=== PATIENT | male | born 1950 | race Caucasian/White ===

== ENCOUNTER 2019-01-23 11:08 | Inpatient (IN) | payer MEDICARE ==
[2019-01-23] MEDS ORDERED: NS 0.9% 1000 ML** 1,000 ML IV ONE (11:10)
--- NOTE | 2019-01-23 11:15 | ED ---
Neurological HPI - HPI Summary HPI Summary: Patient seen by Dr. Glaser at 1109. This patient is a 68 year old M brought in by ambulance to ED with a chief complaint of possible stroke since about 1600 last night. During onset, he got up to use the restroom and had difficulty getting around which was unusual. The patient rates the pain 0/10 in severity. Symptoms aggravated by nothing. Symptoms alleviated by nothing. 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 PMHx of TIA according to CT but had no residual neurological deficits. 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 - Allergy/Home Medications Allergies/Adverse Reactions: Allergies Allergy/AdvReac Type Severity Reaction Status Date / Time heparin Allergy See Comment Verified 01/23/19 12:28 Home Medications: Home Medications Losartan Potassium 25 mg PO DAILY 01/23/19 [History Confirmed 01/23/19] Metformin HCl 1,000 mg PO BID 01/23/19 [History Confirmed 01/23/19] Phendimetrazine Tartrate 2 tab PO QAM 01/23/19 [History Confirmed 01/23/19] PMH/Surg Hx/FS Hx/Imm Hx Endocrine/Hematology History: Reports: Hx Diabetes - TYPE 2 - ON ORAL MEDS QID Cardiovascular History: Reports: Hx Coronary Artery Disease - quadruple bypass - 2004, Hx Valvular Heart Disease, Other Cardiovascular Problems/Disorders - Aortic valve replacement 2010 Denies: Hx Hypertension, Hx Pacemaker/ICD History: Reports: Hx Kidney Infection, Hx Kidney Stones - MANY THROUGH YEARS , Other Problems/Disorders - Kidney failure (not specific if acute or chronic ) Denies: Hx Renal Disease Sensory History: Reports: Hx Contacts or Glasses - GLASSES Denies: Hx Hearing Aid Opthamlomology History: Reports: Hx Contacts or Glasses - GLASSES Psychiatric History: Denies: Hx Panic Disorder - Surgical History Surgery Procedure, Year, and Place: 2004 QUADRUPLE CARDIAC BYPASS, [facility]. 2010 AORTIC VALVE REPLACEMENT, [facility]. 09/2012 PREVIOUS STENT - CARDIAC. 2010 COLONOSCOPY, [facility] [place]. 2013 CYSTOSCOPY RIGHT URETER STENT REMOVAL, URETEROSCOPY, LITHOTRIPSY, STENT INSERTION, [facility] [place] Hx Anesthesia Reactions: No - Immunization History Date of Tetanus Vaccine: 2010 Date of Influenza Vaccine: Fall 2011 Infectious Disease History: Reports: Hx Hepatitis - HEP. 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 on the R All Other Systems Reviewed And Are Negative: Yes Physical Exam - Summary Physical Exam Summary: Appearance: Well appearing, no pain distress Skin: warm, dry, reflects adequate perfusion Head/face: normal Eyes: EOMI, ZAN ENT: normal Neck: supple, non-tender Respiratory: CTA, breath sounds present Cardiovascular: irregularly irregular heartbeat, pulses symmetrical Abdomen: non-tender, soft Musculoskeletal: motor 4/5 rt side Neuro: A&Ox3 GCS: 15 NIH: 4 Triage Information Reviewed: Yes Vital Signs On Initial Exam: Initial Vitals Temp Pulse Resp BP Pulse Ox 97.8 F 68 16 125/86 98 01/23/19 11:10 01/23/19 11:10 01/23/19 11:10 01/23/19 11:10 01/23/19 11:10 Vital Signs Reviewed: Yes Diagnostics - Laboratory Result Diagrams: 01/23/19 11:57 01/23/19 11:57 Lab Statement: Any lab studies that have been ordered have been reviewed, and results considered in the medical decision making process. - Radiology CXR Radiology Interpretation Completed By: Radiologist Summary of Radiographic Findings: No evidence for acute intrathoracic disease. Dr. Glaser has reviewed this radiology report. 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 No CT evidence for acute ischemia or intracranial hemorrhage. Mild involutional change and stigmata of chronic small vessel ischemic disease. Dr. Glaser has reviewed this radiology report. Head CTA CT Interpretation Completed By: Radiologist Summary of CT Findings: No evidence for central intracranial arterial occlusion or stenosis. Dr. Glaser has reviewed this radiology report. - EKG 1117 Cardiac Rate: Other Rate - atrial flutter at 72 BPM EKG Rhythm: Atrial Flutter NIH Scale - NIH Scale Level of Consciousness: Alert/Keenly Responsive Ask Patient the Month and His/Her Age: Both Correct Ask Pt to Open/Close Eyes and Upper Cutter Out/Release Non-Paretic Hand: Both Correctly Best Gaze (Only Horizontal Eye Movement): Normal Visual Field Testing: No Visual Loss Facial Paresis-Pt to Smile & Close Eyes or Grimace Symmetry: Partial Paralysis Motor Function - Right Arm: Drifts LT 10 seconds Motor Function - Left Arm: No Drift-Holds 10 Seconds Motor Function - Right Leg: Drifts LT 10 seconds Motor Function - Left Leg: No Drift-Holds 10 Seconds Limb Ataxia-Must be out of Proportion to Weakness Present: Absent Sensory (Use Pinprick to Test Arms/Legs/Trunk/Face): Normal Best Language (Describe Picture, Name Items): Some Loss Dysarthria (Read Several Words): Normal Extinction and Inattention: No Abnormality Total Score: 5 Re-Evaluation - Re-Evaluation First Eval Re-Evaluation Time: 13:46 Comment: Discussed results and plan for admission with the patient. Also discussed consult with Dr. Joseph. Patient understands and agrees with this plan. Course/Dx - Course Assessment/Plan: Patient seen by Dr. Glaser at 1109. This patient is a 68 year old M brought in by ambulance to ED with a chief complaint of possible stroke since about 1600 last night. Blood work/UA obtained. In the ED course, the patient was given fluids. EKG reveals atrial flutter at [address] reveals multiple old infarcts involving the LEFT middle cerebral artery and bilateral cerebellar artery distributions. No CT evidence for acute ischemia or intracranial hemorrhage. Mild involutional change and stigmata of chronic small vessel ischemic disease. CXR reveals no evidence for acute intrathoracic disease. Head CTA reveals no evidence for central intracranial arterial occlusion or stenosis. Consulted Dr. Joseph about the patient's case and she will come see the patient in the ED. Consulted Dr. Varma at 1357 about the patient's case and he accepts the patient for admission. This patient will be admitted with dx of CVA. Patient understands and agrees with this plan. - Differential Dx Differential Diagnoses Neuro: Positive: Cerebrovascular Accident, Intracranial Bleed, Transient Ischemic Attack - Diagnoses Provider Diagnoses: CVA (cerebral vascular accident) - Physician Notifications Discussed Care Of Patient With: Amalia Joseph Time Discussed With Above Provider: 13:42 Instructed by Provider To: Other - Consulted Dr. Joseph about the patient's case and she will come see the patient in the ED. Consulted Dr. Varma at 1357 about the patient's case and he accepts the patient for admission. - Critical Care Time Critical Care Time: 30-74 min Discharge - Sign-Out/Discharge Documenting (check all that apply): Patient Departure - admit Patient Received Moderate/Deep Sedation with Procedure: No - Discharge Plan Condition: Stable Disposition: ADMITTED TO [facility] Referrals: Sergey Tamez MD [Primary Care Provider] - - Billing Disposition and Condition Condition: STABLE Disposition: Admitted to [facility] - Attestation Statements Document Initiated by Renatae: Yes Documenting Scribe: Jeremy Angeles Provider For Whom Nayely is Documenting (Include Credential): Bradley Glaser MD Scribe Attestation: IJeremy, scribed for Bradley Glaser MD on 01/23/19 at 1522. Scribe Documentation Reviewed: Yes Provider Attestation: The documentation as recorded by the Jeremy mistry accurately reflects the service I personally performed and the decisions made by me, Bradley Glaser MD Status of Scribe Document: Viewed
--- OUTSIDE RECORDS SUMMARY | 2019-01-23 11:24 | XMS REPORT | Continuity of Care Document ---
:1950 External Reference #:[id number] Author Name Kerrie Liang Care Team Providers Name Role Phone Sergey Tamez MD Primary Care Physician Unavailable Payers Date Identification Numbers Payment Provider Subscriber Policy Number: [id number] Medicare Luis E Freeman PayID: [id number] [facility] [address] [place] [address] Advance Directives Description No Information Available Problems Date Description Provider Status Onset: 11/12/2018 Mild cognitive disorder Levi Ellis MD Active Onset: 11/12/2018 Abnormal gait Levi Ellis MD Active Onset: 11/12/2018 Essential tremor Levi Ellis MD Active Onset: 01/05/2019 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 Family History Description No Information Available Social History Type Date Description Comments Sex Unknown ETOH Use Occasionally consumes alcohol Tobacco Use Start: Unknown Patient has never smoked Smoking Status Reviewed: 01/05/19 Patient has never smoked Allergies, Adverse Reactions, Alerts Date Description Reaction Status Severity Comments 11/12/2018 Heparin Active Medications Medication Date Status Form Strength Qnty SIG Indications Ordering Provider Memantine HCL 01/05/ Active Tablets 5mg 70tabs 1 by G31.84 Levi Rose mouth in Rhonda, am for 1 MD week then 1 twice a day for 1 week then 1 in am and 2 in pm at bedtime for 1 week then 2 twice daily Glyburide / Active Tablets 2.5mg 3 by Unknown 0000 mouth every day Metformin HCL / Active Tablets 500mg 1 by Unknown 0000 mouth 4x a day Cozaar 0000/ Active Tablets 25mg 1 by Unknown 0000 mouth every day Phendimetrazine / Active Tablets 35mg one tab Unknown Tartrate 0000 4x a day Senior Tabs 0000/ Active Tablets 1 tab a Unknown 0000 day Magnesium 00/ Active Tablets 400mg 1 by Unknown 0000 mouth every day Zinc 00/ Active Tablets 50mg 0nce Unknown 0000 daily Vitamin B-12 / Active Tablets 3000mcg 1 by Unknown Natural 0000 mouth every day Vitamin C / Active Tablets 1000mg 1 by Unknown 0000 mouth every day CBD / Active Once Or Unknown 0000 Twice A Day 1000MG / Hx Capsules 500-400mg- 1 by Unknown 0000 - Unit mouth 11/11/ once a 2018 day Immunizations Description No Information Available Vital Signs Date Vital Result Comment 01/05/2019 10:58am Height 71 inches 5'11" Weight 177.00 lb Heart Rate 76 /min BP Systolic 130 mmHg BP Diastolic 78 mmHg BMI (Body Mass Index) 24.7 kg/m2 11/12/2018 3:40pm Height 71 inches 5'11" Weight 180.00 lb Heart Rate 80 /min BP Systolic 140 mmHg BP Diastolic 92 mmHg BMI (Body Mass Index) 25.1 kg/m2 Results Test Date Facility Test Result H/L Range Note CBC With 09/16/2010 [facility] White Blood 6.5 CUMM 4.8-10.8 Electronic Diff [address] [place] [address] [phone] Red Cell Count 4.32 CUMM Low 4.6-6.2 Hemoglobin 12.2 g/dL Low 14.0-18.0 Hematocrit 37 % Low 42-52 Mean Corpuscular Volume 84 um3 80-94 Mean Corpuscular Hemoglob 28 pg 27-31 Mean Corpuscular HGB Cone 34 g/dL 32-36 Redcell Distribution WDTH 14 % 10.5-15 Platelet Count 219 CUMM 150-450 Mean Platelet Volume 7.0 um3 Low 7.4-10.4 Gran % 73.8 % 38-83 Lymph % 17.5 % Low 25-47 Mononuclear % 5.5 % 1-9 Eosinophil % 2.6 % 0-6 Basophil % 0.6 % 0-2 Abs Lymphs 1.1 1.0-4.8 Abs Mononuclear 0.4 0-0.8 Absolute Neutrophil Count 4.8 1.5-7.7 Abs Eosinophils 0.2 0-0.6 Abs Basophils 0 0-0.2 1 Protime 09/16/2010 [facility] Inr 2.25 High 0.82-1.[address] [place] [address] [phone] Protime 27.7 SEC High 10.2-14.8 3 Heparin Induced 09/11/2010 [facility] Heparin PF4 45 % Abnormal <20 Platelet AB [address] [place] [address] [phone] Heparin Inhibition 100 % () Heparin PF4 Interpretation Positive Negative Heparin PF4 Comment . () 4 Delilah (Antinuclear 09/10/2010 [facility] Antinuclear AB NEGATIVE Negative Antibodies) [address] [place], [place] [id number] [phone] Reviewed By (SEE NOTE) 5 Activated 09/10/2010 [facility] Act Protein C Indeterminate > or=2.[address] [place] [address] Ratio [phone] Act Protein C Resist Interp . () 6 Laboratory test 09/10/2010 [facility] Anti Thrombin 74 % Abnormal 80-[address] [place] [address] [phone] Lupus 09/10/2010 [facility] Prothrombin 11.1 Abnormal 8.3- 10.8 Anticoagulant AB [address] [place] [address] [phone] Inr 1.2 0.9-1.2 PT Mix 1:1 SEE BELOW s () 8 Aptt 26 s 21-33 Aptt Mix 1:1 SEE BELOW s () 9 Platelet Neutralization Proced SEE BELOW () 10 DRVVT Screen Ratio 1.2 ratio Abnormal <1.2 DRVVT Mix Ratio 1.1 ratio <1.2 Thrombin Time (Bovine) 18 s 16-25 Reptilase Time SEE BELOW s 16-22 11 Interpretation . () 12 Reviewed By Jeaneth Sheth <SEE NOTE> () 13 Factor 5 Leiden 09/10/2010 [facility] Factor 5 Leiden Mut . ( ) [address] [place] [address] [phone] Factor 5 Leiden Mut Result Negative Negative 15 Factor 5 Leiden Mut Interp . () 16 Reviewed By Yashira Tello MD () 17 Laboratory test 09/10/2010 [facility] Homocysteine 10 mcmol/L () [address] [place] [address] [phone] Cardiolipin 09/10/2010 [facility] Cardiolipin Igg AB 14.2 GPL () 19 Igg,Igm,Iga AB [address] [place] [address] [phone] Cardiolipin Igm AB <4.0 MPL () 20 Cardiolipin Iga AB <4.0 APL () 21 Laboratory test 09/10/2010 [facility] Protein C 59 % Abnormal 70-150 [address] [place] [address] [phone] Protein S Activity 71 % 65-160 23 Factor II (Prothrombin) 09/10/2010 [facility] [place] [address] Mutation . () [address] [place] [address] [phone] Prothrombin 56878 Mutation Negative Negative 25 [place] [address] Mutation Interp . () 26 Reviewed By Yashira Tello MD () 27 MRSA/Vre Screen 09/10/2010 [facility] MRSA/Vre Culture [facility] [address] [place] [address] [phone] 1 Lymphopenia % 2 Recommended INR for Patients on Oral Anticoagulants Prophylaxis 2.0 - 3.0 Treatment of thrombosis 2.0 - 3.0 Prevention of embolism 2.0 - 3.0 Prevention of embolism from prosthetic heart valves 2.5 - 3.5 3 DIAGNOSIS,TREATMENT,AND THERAPY MUST BE BASED ON THE INR VALUE ALONE. 4 Patient serum has reactivity for antibodies to complexes of heparinoid and platelet factor 4 (H/PF4 complexes) that is inhibited by high dose heparin. 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 Clinical correlation is required. Note: As many as 25-50% of surgical patients and 10-20% of medical patients recently exposed to heparin may have evidence of antibodies to H/PF4 complexes, but only a minority (1-5%) of such heparin exposed patients have evidence of clinical HIT (HIT type II). However, the presence of such antibodies may increase the risk of clin- ical HIT, but the magnitude of risk for various patient populations has not been clearly established. Test Performed by: [facility] [address] [place] [address] Signals Collection Technician: Harshal Prajapati III, M.D. 5 REVIEWED BY BENNY HOLGUIN MD 6 Unable to accurately assess presence or absence of resistance to Activated Protein C (APC). If clinically indicated, consider DNA-based testing for the factor V "Leiden" mutation (R506Q). Test Performed by: [facility] [address] [place] [address] Signals Collection Technician: Harshal Prajapati III, M.D. 7 Note: Decreased antithrombin activity could reflect acquired conditions [e.g., liver disease, disseminated intravascular coagulation (DIC/ICF), effect of recent heparin therapy, L-asparginase chemotherapy, etc.] or a congenital deficiency state. Suggest clinical correlation. Test Performed by: [facility] [address] [place] [address] Signals Collection Technician: Harshal Prajapati III, M.D. 8 Reflexed test not required 9 Reflexed test not required 10 Reflexed test not required 11 Reflexed test not required Test Performed by: [facility] [address] [place] [address] Signals Collection Technician: Harshal Prajapati III, M.D. 12 IMPRESSION: 1) No evidence of a lupus anticoagulant (LAC). 2) Borderline positive IgG antiphospholipid antibody study (see comments). 3) Minimally prolonged prothrombin time (PT) (see comments). COMMENTS: Minimally prolonged prothrombin time (PT) suggestive of coagulation factor deficiency. Unfortunately there was insufficient sample available to further investigate this possibility. We recommend further investigation of the prolonged PT only if the patient is not currently receiving oral anticoagulant therapy. Mixing study of prolonged dilute Jose viper venom time (DRVVT screen and mix ratios) provides no evidence of significant inhibition and therefore no evidence of lupus-like anticoagulant (LAC) by this methodology. In a 1:1 mixing study with normal plasma, the Staclot APTT is marginally prolonged, providing equivocal evidence of inhibition; however, addition of hexagonal phase phospholipid does not significantly shorten the clotting time (Staclot delta) providing no clear evidence of a lupus anticoagulant (LAC) in the context of available data. Separately performed serological assays for anticardiolipin antibodies demonstrate a negative IgM anticardiolipin antibody study and a borderline positive IgG anticardiolipin antibody study. The borderline positive IgG anticardiolipin antibody study result is not a diagnostic criterion for the antiphospholipid antibody syndrome. 13 Deborah Ramos M.D. Test Performed by: [facility] [address] [place] [address] Signals Collection Technician: Harshal Prajapati III, M.D. 14 This test is a direct mutation analysis of leukocyte genomic DNA by the Invader Assay system ([employer], [place], [place], [place]). 15 Analyte Specific Reagent This test was developed and its performance characteristics determined by [facility], [facility]. This test has not been cleared or approved by the U.S. Food and Drug Administration. 16 This individual DOES NOT have the factor V Leiden (R506Q) mutation. Although the factor V Leiden mutation is absent, the individual may have other genetic and environmental risk factors for thrombosis. Consider additional testing for hemostatic disorders associated with increased thrombosis risk, if indicated. Consider genetic consultation and counseling of potentially affected family members regarding laboratory testing. 17 Test Performed by: [facility] [address] [place] [address] Signals Collection Technician: Harshal Prajapati III, M.D. 18 -- REFERENCE VALUE -- <=13 (Fasting) Test Performed by: [facility] [address] [place] [address] Signals Collection Technician: Harshal Prajapati III, M.D. 19 Interpretation: Borderline (10.0-14.9 GPL) 20 Interpretation: Negative (<10.0 MPL) Test Performed by: [facility] [address] [place] [address] Signals Collection Technician: Harshal Prajapati III, M.D. 21 Interpretation: Negative (<10.0 APL) Test Performed by: [facility] [address] [place] [address] Signals Collection Technician: Harshal Prajapati III, M.D. 22 Note: Decreased Protein C activity could reflect acquired conditions (e.g., liver disease, Vitamin K deficiency, oral anticoagulation, excess heparin in specimen, etc.) or a congenital deficiency state. Suggest clinical correlation. Test Performed by: [facility] [address] [place] [address] Signals Collection Technician: Harshal Prajapati III, M.D. 23 Heparin levels greater than 1 U/ml, inhibitors of the APTT test system (especially lupus anticoagulant), or inhibitors of bovine factor V (such antibodies that may arise in patients treated with certain bovine topical thrombin preparations) may produce a falsely normal Protein S Activity result. Suggest clinical correlation and if indicated consider repeat assay of Protein S Activity and Antigen in the absence of anticoagulation therapy. Test Performed by: [facility] [address] [place] [address] Signals Collection Technician: Harshal Prajapati III, M.D. 24 This test is a direct mutation analysis of leukocyte genomic DNA by the Invader Assay system ([employer], [place], [employer], [place]). 25 Analyte Specific Reagent This test was developed and its performance characteristics determined by [facility], [facility]. This test has not been cleared or approved by the U.S. Food and Drug Administration. 26 This individual DOES NOT have the Prothrombin [id number] mutation. Although the Prothrombin [id number] mutation is absent, the individual may have other genetic and environmental risk factors for thrombosis. Consider additional testing for hemostatic disorders associated with increased thrombosis risk, if indicated. Consider genetic consultation and counseling of potentially affected family members regarding laboratory testing. 27 Test Performed by: [facility] [address] [place] [address] Signals Collection Technician: Harshal Prajapati III, M.D. 28 NO MRSA ISOLATED Procedures Date Code Description Status 01/24/2015 25213 Repair Hernia Inguinal > 5Yrs, Reducible Completed Encounters Type Date Location Provider Dx Diagnosis Office Visit 11/12/2018 [facility] Levi Ellis, G31.84 Mild cognitive 3:15p impairment, so stated R26.89 Other abnormalities of gait and mobility G25.2 Other specified forms of tremor Office Visit 10/25/2012 1:42p [facility] [place], 592.0 [facility] 591 Hydronephrosis 584.9 Acute Kidney Failure, Unspecified 599.0 UTI Urinary Tract Infection Site Not Spec Plan of Treatment Future Appointment(s):02/23/2019 2:00 pm - Levi Ellis MD at [facility]01/05/2019 - Levi Ellis MDG31.84 Mild cognitive impairment, so statedNew Medication:Memantine HCL 5 mg - 1 by mouth in am for 1 week then 1 twice a day for 1 week then 1 in am and 2 inpm at bedtime for 1 week then 2 twice dailyComments:Discussed that his cognitive decline in large part is likely secondary to his significant small vessel ischemic disease with some possible lacunes as well identified on mri. Discussed that it is impossible to prove that there is no component of Alzheimers and that there are some medications such as namenda that can have a mild slowing of progression of Alzheimers but would not affect problems from avascular dementia. They want to pursue- would use namenda rather than aricept since namenda has fewer side effects. He also did not tolerate aricept before.His balance problems are likely a combination of his diabetic peripheral neuropathy and cerebellar atrophy.Follow up:6 OYCLOJ21.42 Type 2 diabetes mellitus with diabetic vofvdcohcwakcjH88.02 Abnormal brain scan
[2019-01-23 12:07] LABS: Hematocrit 39 % (36-46); Hemoglobin 12.7 g/dL (14.0-18.0); Mean Corpuscular HGB Conc 33 g/dL (31-36); Mean Corpuscular Hemoglobin 29 pg (27-31); Mean Corpuscular Volume 89 fL (80-94); Red Blood Count 4.39 10^6 /uL (4.18-5.48); Red Cell Distribution Width 14 % (10.5-15); White Blood Count 4.6 10^3/uL (3.5-10.8)
[2019-01-23 12:14] LABS: Activated Partial Thrombo Time 22.7 seconds (26.0-36.3); INR 1.08 (0.77-1.02)
[2019-01-23 12:25] LABS: Troponin I 0.02 ng/mL (<0.04)
[2019-01-23 12:26] LABS: ALT 15 U/L (7-52); Albumin 2.7 g/dL (3.2-5.2); Albumin/Globulin Ratio 1.2 (1-3); Alkaline Phosphatase 52 U/L (34-104); BUN/Creatinine Ratio 17.6 (8-20); Blood Urea Nitrogen 19 mg/dL (6-24); CO2 Carbon Dioxide 19 mmol/L (22-32); Calcium 6.5 mg/dL (8.6-10.3); Cholesterol 93 mg/dL; EGFR African American 81.8 (>60); EGFR Non-African American 67.6 (>60); Globulin 2.2 g/dL (2-4); Glucose 115 mg/dL (70-100); HDL Cholesterol 17.5 mg/dL; LDL Cholesterol 56 mg/dL; Sodium 139 mmol/L (135-145); Total Protein 4.9 g/dL (6.4-8.9); Triglycerides 100 mg/dL
[2019-01-23] MEDS ORDERED: Iodixanol* (CONTRAST) 320 MG/ML 100 ML SDV IV ONE (12:43)
[2019-01-23 12:46] LABS: ABS Basophils 0 10^3/ul (0-0.2); ABS Eosinophils 0 10^3/ul (0-0.6); ABS Lymphocytes 0.7 10^3/ul (1.0-4.8); ABS Monocytes 0.2 10^3/ul (0-0.8); ABS Neutrophils 3.5 10^3/ul (1.5-7.7); ABS Nucleated RBC 0 10^3/ul; Eosinophil % 0.9 %; Lymphocyte % 16.3 %; Nucleated Red Blood Cells % 0.1; Platelet Count 92 10^3/uL (150-450)
[2019-01-23 13:13] LABS: Chloride 116 mmol/L (101-111)
[2019-01-23 14:00] LABS: Anion Gap 4 mmol/L (2-11)
[2019-01-23] MEDS ORDERED: Aspirin 81 mg CHEW TAB* 81 MG TAB.CHEW PO ONE (14:14)
[2019-01-23 16:14] LABS: BUN/Creatinine Ratio 15.3 (8-20); Calcium 8.3 mg/dL (8.6-10.3); EGFR African American 62.2 (>60); EGFR Non-African American 51.4 (>60); Magnesium 1.8 mg/dL (1.9-2.7); Potassium 4.9 mmol/L (3.5-5.0)
[2019-01-23] MEDS ORDERED: Magnesium Sulfate 2 GM IV* 2 GM/50 ML BAG IVPB ONE (16:36)
[2019-01-23] MEDS ORDERED: Acetaminophen TAB* 325 MG PO PRN (16:37)
[2019-01-23] MEDS ORDERED: Dextrose 50% Syringe 50 ML* 25 GM/50 ML SYRINGE IV PUSH PRN (16:56)
[2019-01-23 17:39] LABS: Potassium Redraw 4.5 mmol/L (3.5-5.0)
--- NOTE | 2019-01-23 20:41 | CONS ---
CC: Dr. Levi Ellis; Dr. Sergey Tamez; Payal Wilkins, ANNALISA, [facility] * CONSULTATION REPORT: DATE OF CONSULT: 01/23/19 REQUESTING PHYSICIAN: Dr. Glaser. REASON FOR CONSULT: Stroke. HISTORY OF PRESENT ILLNESS: Mr. Luis E Freeman is a 68-year-old gentleman with history of diabetes, coronary artery disease, bovine aortic valve replacement, previous heparin-induced thrombosis, and previous strokes on MRI who now presents to the emergency room with acute onset of neurologic symptoms. At baseline, he has some difficulties with balance and is noted to have peripheral neuropathy as well as previous cerebellar strokes. He was out raking his lawn around 4 p.m. yesterday and he noticed a decline in balance. He went inside and sat down. He had noted some pain near his ear earlier in the day and he questioned whether it could have been an inner ear problem. He went to bed about 11:30 pm. This morning, he woke up at about 9:30 and found it hard to stand. His voice had changed. His facial expression was changed on the right hand side. His right hand was slow in movement. They came into the emergency room for further evaluation. TPA was not provided. He was noted to be outside the TPA window in the emergency room, and his NIH Stroke Scale was noted to be 5. He did have a CTA of the brain and neck looking for a large- vessel occlusion, which was negative. Neurology consult was called in the setting of admission to [facility]. Of note, new atrial flutter was noted in the emergency room. The patient was unfamiliar with this term/ diagnosis. PAST MEDICAL HISTORY: Includes diabetes with peripheral neuropathy. In his chart is listed hypertension and hyperlipidemia, both diagnoses of which he denies, however he is on Cozaar. He has a history of intention tremor in the left greater than right upper extremity. He had concerns regarding cognition and was noted to have vascular changes on MRI with both cerebellar strokes as well as subcortical periventricular changes. He had a MoCA in October, which was within normal limits. Past medical history also includes hepatitis C, narcolepsy diagnosed at age 18, coronary artery disease with bypass in 2004 and stent in 2011, aortic valve replacement with bovine heart valve replaced in 2010 , history of kidney stones with infection and urethral stent in 2013. MEDICATIONS: In the emergency room, he was given aspirin. At home, he is on CBD oil. He also takes Cozaar 25 mg p.o. daily, magnesium 400 mg p.o. daily, memantine which has been tapered up to 5 mg p.o. b.i.d. He is on metformin 500 mg and he thought he was taking it t.i.d. He is on glyburide, which he believes is 5 mg p.o. daily, vitamin B12 at 3000 mcg p.o. daily; which he does not take regularly, vitamin C 1000 mg a day, zinc 50 mg a day, vitamin D 1000 International Units p.o. daily, Senior Tabs 1 tablet daily, phendimetrazine 35 mg p.o. 4 times daily. ALLERGIES: Include HEPARIN which caused heparin-induced thrombosis, and he indicates he was admitted to the ICU for this with multiple clots. FAMILY HISTORY: Includes mother who at 89 of old age, father who had a myocardial infarction at age 60, one sister who of sepsis, and one sister had 3 myocardial infarctions. SOCIAL HISTORY: He smokes occasional marijuana. He does not smoke tobacco. He denies any illicit drug use, he has about 2 drinks of alcohol a week. REVIEW OF SYSTEMS: There has been no change in vision. There has been change in speech as noted above. There has been no chest pain, chest pressure, palpitation, shortness of breath, new numbness and weakness includes weakness on the right hand side, but no numbness or tingling. There has been no change in bowel or bladder habits. He denies any recent joint pain. There has been no recent rashes or high fevers. He has had drenching night sweats for a long time. He denies any new joint pain. He denies any psychiatric history. PHYSICAL EXAM: On examination, his most recent blood pressure was 116/72, his pulse was 74, respiratory rate was initially 20; repeated 11, his saturation was 98%. He had a regular cardiac rhythm. A flutter, however, was noted on monitor. No murmur was detected. No carotid bruit. His lungs were clear to auscultation. There was no evidence of peripheral edema. He did have high arches and hammertoes. He was awake, alert, oriented to his location, could name and repeat without difficulty. His pupils were equal and responsive to light. His fundi were flat. He had full extraocular movements with no nystagmus , full fontanez to confrontation. His facial expression was asymmetric with a right central VII, which improved when going from head of bed at about 30 degrees to flat. His facial sensation was symmetric. His palate was upgoing. Tongue was midline. Sternocleidomastoid and trapezius were 5/5 in strength. There was a right slight pronator drift. Left upper extremity and lower extremity were strong. In the right upper extremity, deltoid was weak at 4+/5, biceps 4+/5, triceps 4-/5, intrinsic hand muscles 4-/5. Right lower extremity, hip flexion was weak at 4+/5, knee flexion and extension were good strength, but dorsiflexion 4+/5. He had slight dysmetria in the right arm and leg consistent with weakness. There was no asymmetry to pinprick, cold, or light touch in his arms and legs and there was no evidence of neglect. His vibration sensation was absent at the large toes, diminished at the ankles or absent, and decreased at the knees by 20 seconds. He denied any length-dependent changes and sharp. His reflexes were 2+ in the upper extremities, 1+ at the knees, absent at the ankles. Toes were equivocal on the right and downgoing on the left. Gait was not tested given his clinical status and his clinical improvement when lying flat. DIAGNOSTIC STUDIES/LAB DATA: Includes CTA of the brain and neck, which did not show evidence of large-vessel occlusion or stenosis. There was comment about C6 -C7 degenerative spondylosis with some neural foraminal changes and osteoarthritis. Please see report for further details in this regard. CT of the brain showed multiple old strokes in the bilateral cerebellar distribution, left MCA distribution, and atrophy, as well as other small-vessel ischemic diseases. This film was reviewed directly and I attempted to compare this to the MRI that was performed recently, which looks similar. His chest x-ray did not show any evidence of acute disease. His CBC showed a slightly low hemoglobin at 12.7, platelet count was low at 92. His PTT was low at 22.7, INR was 1.08. His metabolic panel revealed elevated creatinine at 1.37, which is a repeat. The initial was 1.08. His GFR remained within normal limits. Glucose was elevated initially at 115; repeated at 201, calcium was low at 6.5; repeated at 8.3, magnesium is low at 1.8. Total protein and albumin were both low. Triglycerides 100, cholesterol 93, LDL 56, HDL 17.5. IMPRESSION AND PLAN: Mr. Freeman is a 68-year-old left-handed gentleman with history of previous strokes on MRI Brain, diabetes, coronary artery disease, bovine aortic valve replacement, heparin-induced thrombosis, now with worsening balance in the setting of left face and arm and leg weakness who is outside the TPA window with NIH Stroke Scale of 5 and no large-vessel occlusion. Given some improvement in facial expression and speech with putting head of bed flat, we will keep him flat and I have asked him to remain flat in bed over at least the next 24 hours and further extension depending on symptoms. He could sit to eat, but then needs to get back down. I have started normal saline at 100 mL an hour and I will hold any blood pressure medication, and I would not treat blood pressure unless it is above systolic of 210 and diastolic of 110. I admitted him to telemetry to check an echocardiogram with bubble study. Already, he is noted to have a flutter, and this is a significant risk factor for stroke and most likely he will need anticoagulation. For now, we will hold off on anticoagulation, as I would like to further define stroke and risk/ benefit for anticoagulation. We will get an MRI of the brain tomorrow to further evaluate the extent of stroke and give potentially further info into the likely source. A small-vessel stroke is possible based on presentation and I have suggested starting him on aspirin along with statin. Education was given to Mr. Freeman and his regarding hemorrhagic and ischemic strokes, findings to date, previous workup in the emergency room, further workup planned in hospital and at admission, variable prognosis with strokes, the importance of stabilization over the next 24 to 48 hours, importance of lying flat, and the potential for further therapy. At this point, he will need speech therapy, physical therapy, occupational therapy, and potentially rehab. TIME SPENT: Over 90 minutes were spent in direct patient care. Case was also discussed with hospitalist team. [id number]/[facility] #: [id number] BRAD
[2019-01-23] MEDS: NS 0.9% 1000 ML** 1,000 ML IV SCH (21:29)
[2019-01-23] MEDS: Atorvastatin* 20 MG TAB PO SCH (21:34)
--- NOTE | 2019-01-24 00:55 | HP ---
CC: Dr. Joseph; Dr. Tamez * HISTORY AND PHYSICAL: DATE OF ADMISSION: 01/23/19 PROVIDER: Kristi Cabezas NP. PRIMARY CARE PROVIDER: Dr. Tamez. ATTENDING PROVIDER: Dr. Preston Varma * (DICTATED BY KRISTI CABEZAS NP) CHIEF COMPLAINT: Right-sided weakness, slurred speech. HISTORY OF PRESENT ILLNESS: Mr. Freeman is a 68-year-old male with past medical history significant for coronary artery disease; status post 4-vessel bypass in 2003, aortic valve replacement, diabetes, nephrolithiasis, history of DVT, essential tremor, history of hepatitis C, history of heparin-induced thrombosis , history of also previous strokes on MRI as well as some peripheral neuropathy. The patient does have balance disturbances at baseline. The patient reports that at approximately 4 p.m. he was outside raking leaves, he felt off balance, so he went inside to rest. He states that he went to bed at around 11:30. He reports this morning he woke up at approximately 9:30. He found that it was hard to stand. He reports that his voice had changed and his speech was slurred. He had some right facial droop and right-sided weakness, so they presented to the emergency room via EMS for further evaluation. In the emergency room, he had an NIH Stroke Scale of 5. He did have a CT of the brain and neck to look for large-vessel occlusion, which was negative. Neurology was consulted by the emergency room due to his neurological symptoms. While in the emergency room, the patient was monitored on telemetry. He was found to be in new atrial flutter on the monitor. The patient reports no history of atrial flutter in the past. He did have a CT of the brain, which showed multiple old infarcts involving the left middle cerebral artery and bilateral cerebellar artery distributions. There was no CT evidence of acute ischemia or intracranial hemorrhage. Mild involutional changes and stigmata of chronic small-vessel ischemic disease. The patient denies any fever; denies any recent illness; denies any chest pain, edema, cough, hemoptysis, or shortness of breath. No nausea, vomiting, diarrhea , or abdominal pain, hematuria, or dysuria. He does report some weakness on the right side, right facial droop, slurred speech, difficulty with words. He denies any difficulty swallowing. Denies any visual complaints, arthralgias, myalgias, rashes, lesions, or open sores. Denies any psychosis or anxiety. Due to his neurological symptoms and concern for new acute stroke, we were asked to see and evaluate him for admission. He will be admitted under observation for CVA. PAST MEDICAL HISTORY: 1. Aortic valve replacement in 2011. 2. Coronary artery disease, status post 4-vessel bypass in 2003, stent placement in 2016. 3. History of diabetes. 4. Nephrolithiasis. 5. DVT. 6. Essential tremor. 7. Hepatitis C. 8. Peripheral neuropathy. 9. Hypertension. PAST SURGICAL HISTORY: 1. Four-vessel bypass surgery in 2010. 2. Aortic valve replacement in 2009. 3. Stent placement in 2016. 4. Inguinal hernia repair. MEDICATIONS: Home medications include: 1. Losartan 25 mg p.o. daily. 2. Glyburide 2.5 mg p.o. t.i.d. 3. Phendimetrazine tartrate 2 tabs p.o. q.a.m. 4. Metformin 1000 mg p.o. b.i.d. 5. Memantine 5 mg b.i.d. 6. Vitamin D. 7. Multivitamin. 8. Magnesium oxide 400 mg. 9. Vitamin B12 at 3000 mcg. 10. Vitamin C. FAMILY HISTORY: Mother at the age of 89 of old age. Father with myocardial infarction at age 60. One sister from sepsis. One sister had 3 MIs. SOCIAL HISTORY: The patient reports that he does not use any tobacco. He does report alcohol approximately 2 times per week. He does report smoking marijuana twice weekly. He is retired. He is . He lives with his . Surrogate decision maker in the event he is unable to make his own decisions is his . He is a full code. REVIEW OF SYSTEMS: A review of 14 systems was completed. All pertinent positives were mentioned in the HPI; all others were negative. PHYSICAL EXAMINATION GENERAL: At this time, Mr. Freeman is resting on the stretcher in the emergency room. He is alert and oriented x3. His speech is slightly slurred. He is in no acute distress. He does have mild right facial droop. HEENT: Head is atraumatic, normocephalic. Eyes: EOMs are intact. Sclerae anicteric and not pale. Oral mucosa appeared to be moist. NECK: Supple. LUNGS: Clear to auscultation bilaterally. No wheezes, rales, or rhonchi. CARDIAC: S1, S2 is irregular rate and atrial flutter on the monitor. AFib in the 70s to 80s. ABDOMEN: Soft and nontender. Bowel sounds are present x4. MUSCULOSKELETAL: He does have some weakness noted to his left leg. His right handgrip is slightly weaker. He does have some weakness noted to the right leg. EXTREMITIES: Pedal pulses are +2 bilaterally. There is no clubbing, cyanosis, or edema noted. SKIN: Intact. NEUROLOGIC: He is awake, alert, and oriented x3. Speech is slightly slurred. He does have mild right facial droop. Tongue is midline. Right handgrip is weak. Right leg with mild weakness. Rezbbh-zm-degs on the left is intact. Finger-to- nose on the right is intact with mild deviation. He does have mild pronator drift noted to the right arm and mild drifting with the right leg. LABORATORY DATA AND DIAGNOSTIC STUDIES: WBCs were 4.6, RBCs 4.39, hemoglobin 12.7, hematocrit was 39, platelet count was 92. INR was 1.08, APTT was 22.7. Sodium 137, potassium 4.9, chloride 108, carbon dioxide was 26, anion gap was 3 , BUN was 21, creatinine 1.37, glucose was 201, calcium was 8.3, magnesium 1.8. TSH was 1.97. Cholesterol: Triglycerides were 100, cholesterol was 93, LDL was 56, HDL was 17.5. He had a chest x-ray on 01/23/19. Radiologist's impression: No evidence of acute intrathoracic disease. He had an electrocardiogram, which showed atrial fibrillation to atrial flutter at a rate of 72. He had a CT of the brain. Multiple old infarcts involving the left middle cerebral artery and bilateral cerebellar artery distributions. No CT evidence of acute ischemia or intracranial hemorrhage. Mild involutional changes and stigmata of chronic small-vessel ischemic disease. He had a CT of the head. No evidence of central intracranial arterial occlusion or stenosis. ASSESSMENT AND PLAN: Mr. Freeman is a 68-year-old male with a past medical history significant for diabetes, coronary artery disease, essential tremor, history of deep venous thrombosis, hepatitis C, aortic valve replacement, and heparin-induced thrombosis who presented to the emergency room with complaints of right-sided weakness and difficulty with his speech. He will be admitted under observation for: 1. Cerebrovascular accident. The patient did have a CT of the brain, which showed chronic infarcts, no acute infarct, no hemorrhage. He will have an MRI of the brain without contrast. He will get an echocardiogram with bubble study. He will be placed on low-dose statin therapy as his LDL is 56 and neurology has recommended low-dose statin therapy. I will place him on telemetry and continue with aspirin 81 mg p.o. daily. He will need to remain flat x24 hours. He can sit to eat and then must be placed back in the flat position. He will need PT/OT. He will have speech therapy, swallow evaluation , and most likely need rehab at discharge. At this time, we will continue with neuro checks q.2 hours x4 and then q.4 hours. Neurologist has been consulted and seen the patient in the emergency. Further recommendations pending his MRI tomorrow. 2. Diabetes. I will hold his oral metformin and glipizide. I will place him on lispro sliding scale with Accu-Cheks a.c. 3. Hypertension. At this time, I am going to hold his losartan as his blood pressure was low and I will allow for permissive hypertension as the patient's did improve with lying flat. 4. History of coronary artery disease. We will continue him on aspirin as previously prescribed. 5. New-onset atrial flutter. The patient is currently rate controlled at this time. He has a CHADS-VASc score of 6, giving him a 9.7% per year in 90,000 patients at 13.6% risk of stroke, transient ischemic attack, or systemic embolism. He is considered at [id number] risk and should be, otherwise, anticoagulated. Neurology has recommended holding anticoagulation until after the MRI. We will consider anticoagulation after the MRI results tomorrow. The patient is currently rate controlled. I will not put him on a rate agent at this time. The patient also does have a history of heparin-induced thrombosis, so we will need to use caution in picking an agent for anticoagulation for him. We will get an echocardiogram tomorrow with bubble study to look at cardiac function. 6. Deep venous thrombosis prophylaxis. The patient will be placed on sequential compression devices. Chemical deep venous thrombosis prophylaxis will be held at this time due to the patient's history of heparin-induced thrombosis. 7. Fluid, electrolytes, nutrition. The patient can have a heart-healthy, decaf okay diet. 8. Code status. He is a full code. TIME SPENT: Time spent on this admission was 70 minutes, greater than half that time was spent at the bedside reviewing events leading thus far to his hospitalization, performing my physical exam, and implementing my plan of care. I have discussed this with my attending, Dr. Preston Varma; he is in agreement with my plan. KRISTI CABEZAS, ADMINISTRATIVE COORDINATOR [id number]/[facility] #: [id number] BRAD
[2019-01-24 01:44] LABS: Urine Appearance Clear; Urine Bacteria Absent (Absent); Urine Bilirubin Negative (Negative); Urine Blood Negative (Negative); Urine Color Yellow; Urine Glucose 1+(50 mg/dL) (Negative); Urine Ketones Trace (Negative); Urine Nitrite Negative (Negative); Urine Protein 1+(30 mg/dL) (Negative); Urine Red Blood Cell Absent (Absent); Urine Specific Gravity 1.039 (1.010-1.030); Urine Squamous Epithelial Cell Present (Absent); Urine Urobilinogen Negative (Negative); Urine White Blood Cell Absent (Absent)
[2019-01-24 06:41] LABS: ABS Basophils 0 10^3/ul (0-0.2); ABS Eosinophils 0.1 10^3/ul (0-0.6); ABS Lymphocytes 1.6 10^3/ul (1.0-4.8); ABS Monocytes 0.4 10^3/ul (0-0.8); ABS Neutrophils 4.2 10^3/ul (1.5-7.7); ABS Nucleated RBC 0 10^3/ul; Eosinophil % 1.6 %; Hematocrit 42 % (36-46); Hemoglobin 13.8 g/dL (14.0-18.0); Lymphocyte % 24.7 %; Mean Corpuscular HGB Conc 33 g/dL (31-36); Mean Corpuscular Hemoglobin 29 pg (27-31); Mean Corpuscular Volume 88 fL (80-94); Mean Platelet Volume 8.5 fL (7.4-10.4); Nucleated Red Blood Cells % 0; Platelet Count 114 10^3/uL (150-450); Red Blood Count 4.74 10^6 /uL (4.18-5.48); Red Cell Distribution Width 14 % (10.5-15); White Blood Count 6.3 10^3/uL (3.5-10.8)
[2019-01-24 06:55] LABS: BUN/Creatinine Ratio 15.6 (8-20); Calcium 8.2 mg/dL (8.6-10.3); EGFR African American 63.2 (>60); EGFR Non-African American 52.2 (>60); Magnesium 2.1 mg/dL (1.9-2.7); Potassium 4.2 mmol/L (3.5-5.0)
[2019-01-24] MEDS: Insulin LISPRO* 1 UNITS UNIT SUBCUT SCH ×3 (08:42→17:39)
[2019-01-24] MEDS: NS 0.9% 1000 ML** 1,000 ML IV SCH (09:28)
[2019-01-24] MEDS: Aspirin EC TAB* 81 MG TAB.EC PO SCH (09:28)
--- NOTE | 2019-01-24 15:39 | ECHO ---
Patient: JADYN RUIZ [facility] Rec#: [id number] : 1950 Date: 01/24/2019 Age: 68y Height: 183 cm / 72.0 in Weight: 81 kg / 178.5 lbs Sex: M BSA: 2.03 Room#: [facility] Admit Date#: 01/23/2019 Type: Inpatient Referring: Lynette Cabezas Reading: Juan Choi MD Seat Scooper Machine: Amalia Unger RDCS,RDMS CC: Sergey Tamez MD Transthoracic Echocardiogram Indication: CVA BP: 112/64 HR: 74 Rhythm: A-Flutter Findings History: CAD, CABG, AVR, DM, DVT, CVA, HTN, HLD Technical Comments: The study quality is good. Left Ventricle: The left ventricular chamber size is normal. Mild to moderate concentric left ventricular hypertrophy is observed. Global left ventricular wall motion and contractility are within normal limits. Left ventricular systolic function is at the lower limits of normal. The estimated ejection fraction is 50-55%. Ventricular septal wall motion has a post-operative appearance. The assessment of diastolic function is non-diagnostic. Left Atrium: The left atrium is severely dilated. Right Ventricle: The right ventricular chamber size and systolic function are within normal limits. Right Atrium: The right atrium is mild to moderately dilated. The bubble study is negative. A patent foramen ovale is not demonstrated with color Doppler and agitated contrast. Aortic Valve: There is no evidence of aortic regurgitation. The mean gradient of the aortic valve is 9 mmHg. The aortic valve area, by peak velocities, is calculated at 1.3 cm2. A bovine bio-prosthetic aortic valve is present. With normal function The prosthetic aortic valve leaflets are normal. Mitral Valve: Moderate mitral annular calcification present. The mitral valve leaflets are mildly thickened. There is mild mitral regurgitation. There is no evidence of mitral stenosis. Tricuspid Valve: The tricuspid valve leaflets are normal. There is trace tricuspid regurgitation. No pulmonary hypertension is noted. Pulmonic Valve: The pulmonic valve appears normal. There is a trace pulmonic regurgitation. Pericardium: There is no significant pericardial effusion. Aorta: The aortic root appears normal. There is no dilatation of the aortic arch. Pulmonary Artery: The main pulmonary artery appears normal. Venous: The inferior vena cava appears normal in size. There is a greater than 50% respiratory change in the inferior vena cava dimension. Contrast: Intravenous agitated saline contrast was used to assess intracardiac shunting. Images 1 and 2. Summary: There are no significant changes when compared to the previous study done on 09/10/10 Conclusions Mild to moderate concentric left ventricular hypertrophy is observed. Left ventricular systolic function is at the lower limits of normal. The estimated ejection fraction is 50-55%. Ventricular septal wall motion has a post-operative appearance. The right ventricular chamber size and systolic function are within normal limits. A patent foramen ovale is not demonstrated with color Doppler and agitated contrast. A bovine bio-prosthetic aortic valve is present. With normal function Moderate mitral annular calcification present. There is mild mitral regurgitation. There is no evidence of mitral stenosis. There is trace tricuspid regurgitation. There is no significant pericardial effusion. There are no significant changes when compared to the previous study done on 09/10/10 Measurements Name Value Normal Range RVIDd (AP) 2D 3.6 cm (0.9 - 2.6) RAd ISD 4CH 5.6 cm (3.4 - 4.9) RA (A4C)W 4.2 cm (2.9 - 4.6) IVSd (2D) 1.6 cm (0.6 - 1) LVPWd (2D) 1.3 cm (0.6 - 1) LVIDd (2D) 3.9 cm (3.6 - 5.4) LVIDs (2D) 3.1 cm - LV FS (2D) 22 % (25 - 45) Aortic Annulus 2.3 cm (1.4 - 2.6) Ao root diameter (2D) 3 cm (2.1 - 3.5) Ascending Ao 2.8 cm (2.1 - 3.4) Aortic arch 3.1 cm (1.8 - 3.4) LA dimension (AP) 2D 6.1 cm (2.3 - 3.8) LAd ISD 4CH 6.3 cm (2.9 - 5.3) LA ISD 4CH W 5.2 cm (2.5 - 4.5) Name Value Normal Range LA ESV BP (A/L) index 57 ml/m2 - Name Value Normal Range MV E-wave Vmax 1.4 m/sec - MV deceleration time 129 msec - LV lateral e' Vmax 0.12 m/sec - LV E:e' lateral ratio 12 ratio - Name Value Normal Range AV Vmax 2.6 m/sec - AV VTI 51 cm - AV peak gradient 27 mmHg - AV mean gradient 9 mmHg - LVOT diameter 2.1 cm - LVOT Vmax 1 m/sec - LVOT VTI 18 cm - LVOT peak gradient 4 mmHg - LVOT mean gradient 2 mmHg - DOI (VTI) 0.4 ratio - GLENDY (continuity Vmax) 1.3 cm2 - GLENDY (continuity VTI) 1.2 cm2 - Name Value Normal Range MV Vmax 1.3 m/sec - MV VTI 30 cm - MV peak gradient 7 mmHg - MV mean gradient 3 mmHg - MV PHT 82 msec - MVA (PHT) 2.7 cm2 - MVA (continuity VTI) 2.1 cm2 - Name Value Normal Range TR Vmax 2.5 m/sec - TR peak gradient 25 mmHg - RAP 8 mmHg - RVSP 33 mmHg - IVC diameter 2.1 cm - Name Value Normal Range PV Vmax 0.6 m/sec - PV peak gradient 1.4 mmHg -
--- NOTE | 2019-01-24 16:20 | PN ---
Subjective Date of Service: 01/24/19 Length of Stay: 1 Days Neurology is following for stroke. Interval History: Brief history, Mr. Luis E Freeman is a 68-year-old man who has evidence of memory problems who was recently evaluated by Dr. Ellis. It was thought that he has vascular dementia. The patient presented on Thursday morning with symptoms of right sided weakness. He had dizziness that started Thursday evening. He was deemed not a candidate for IV tPA. He did not have any LVO. He had a CT head without contrast on 01/23/19 that showed multiple old infarct in bilateral cerebellar and left MCA vascular territory. he had a CTA that showed no large vessel intra or extra cranial stenosis or occlusion. He had an MRI brain without contrast that showed small acute infarct in the left nataliia with moderate chronic small vessel disease and multiple old lacunar stroke. A TTE was done and showed severely dilated left atrium and EF of 50-55%. No PFO was seen. S: Today, Mrs. Freeman stated that his facial droop on the right has improved. He still has significant right sided weakness involving the face, arm and leg. He continues to have slurred speech. His symptoms do fluctuate and he seems to be more symptomatic with upright posture. Review of Systems: Denied CP, SOB, or palpitations. Objective Active Medications: Acetaminophen (Tylenol Tab*) 650 mg PO Q4H PRN PRN Reason: FEVER/PAIN Aspirin (Aspirin Ec Tab*) 81 mg PO DAILY [facility] Last Admin: 01/24/19 09:28 Dose: 81 mg Atorvastatin Calcium (Lipitor*) 20 mg PO 2100 [facility] Last Admin: 01/23/19 21:34 Dose: 20 mg Dextrose (D50w Syringe 50 Ml*) 12.5 gm IV PUSH .FOR FS < 60 - SS PRN PRN Reason: FS < 60 Sodium Chloride (Ns 0.9% 1000 Ml) 1,000 mls @ 100 mls/hr IV PER RATE [facility] Last Admin: 01/24/19 09:28 Dose: 100 mls/hr Insulin Human Lispro (Humalog*) 0 units SUBCUT [facility]; Protocol Last Admin: 01/24/19 13:45 Dose: Not Given Vital Signs 01/24/19 01/24/19 08:23 11:52 Temperature 97.4 F 97.8 F Pulse Rate 76 75 Respiratory 16 16 Rate Blood Pressure 123/78 126/80 (mmHg) O2 Sat by Pulse 97 99 Oximetry Intake and Output Last 24 Hours 01/22/19 01/23/19 01/24/19 01/25/19 06:59 06:59 06:59 06:59 Intake Total 1000 1124 Output Total 650 Balance 1000 474 Weight 187 lb 3.2 oz 187 lb 3.2 oz Intake: IV Fluids 1000 950 IVPB 54 NS (0.9%) 54 Oral 0 120 Output: Urine 650 Oxygen Devices in Use Now: Nasal Cannula Neurology Exam: General: Well nourished, well developed, and in no acute distress HEENT: Normocephelic/atraumatic, sclera anicteric, mucous membranes moist Neck: Supple Chest: Clear to auscultation bilaterally Cardiovascular: Regular rate and rhythm without murmurs, rubs, gallops Abdomen: Soft, non-tender/non-distended Extremities: No clubbing, cyanosis, or edema Neurological Findings: Awake, alert, and oriented to person, place, and time. Speech: fluent without dysarthria, repetition intact Cranial Nerve: PERRL, EOM intact, VFF, no nystagmus, face symmetric bilaterally , facial sensation intact, hearing intact to finger rub bilaterally, palate elevates symmetrically, tongue midline, SCM and Trapezius s/s. Motor: s/s throughout, proximal and distal extremities x4 tone/bulk normal Sensation: intact to LT/PP bilaterally upper and lower extremities Deep Tendon Reflex: 2+ symmetric in the upper/lower extremities, Babinski - down going Finger to nose, rapid alternating movements intact without tremor, no dysdiadochokinesia Gait: intact with good arm swing and stride Result Diagrams: 01/24/19 06:03 01/24/19 06:03 Additional Lab and Data: LDL: 56 Assessment/Plan 1. Acute left pontine stroke He was outside the window for IV tPA and he has no evidence of LVO. I suspect the stroke is related to cardiac arrhythmia in the setting of new onset atrial flutter. 2. New onset atrial flutter 3. 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 - Keep him flat for the next 24 hours - Allow permissive hypertension with SBP goal of 120<160 mmHg. - Continue low dose atorvastatin since his LDL is < 70. The risk of complications with high intensity statin therapy outweighs the benefit. - Pt will need acute rehabilitation. He prefers to do acute rehabilitation at [facility]. - Discussed and counseled regarding fall precautions on anticoagulation therapy. - Discussed and educated the patient regarding secondary stroke preventions. Anticoagulation therapy will hopefully minimize the risk of new strokes - VTE prophylaxis with Eliquis starting tonann marie Time spent: 35 minutes obtaining history, examining the patient, education and counseling, and discussing the treatment plan as mentioned above.
--- NOTE | 2019-01-24 18:33 | PN ---
Subjective Date of Service: 01/24/19 Interval History: Radiology called results of acute left pontine stroke. Dr Ortiz notified. Discussed case with Dr Ortiz who suspects stroke is related to cardiac arrythmia in the setting of new onset a flutter. Recommending Eliquis and ASA daily. Discussed with hematology who agree with Eliquis given history of HIT. Hematology will see patient tomorrow. Evaluated with at bedside. reports she has seen improvement since his admission. Patient denies cp, palpitations, nausea, vomiting, diarrhea. Continues to have word finding difficulty which has been present for several months. Continues to have right sided weakness. Objective Active Medications: Acetaminophen (Tylenol Tab*) 650 mg PO Q4H PRN PRN Reason: FEVER/PAIN Apixaban (Eliquis*) 5 mg PO BID [facility] Aspirin (Aspirin Ec Tab*) 81 mg PO DAILY [facility] Last Admin: 01/24/19 09:28 Dose: 81 mg Atorvastatin Calcium (Lipitor*) 20 mg PO 2100 [facility] Last Admin: 01/23/19 21:34 Dose: 20 mg Dextrose (D50w Syringe 50 Ml*) 12.5 gm IV PUSH .FOR FS < 60 - SS PRN PRN Reason: FS < 60 Sodium Chloride (Ns 0.9% 1000 Ml) 1,000 mls @ 100 mls/hr IV PER RATE [facility] Last Admin: 01/24/19 09:28 Dose: 100 mls/hr Insulin Human Lispro (Humalog*) 0 units SUBCUT [facility]; Protocol Last Admin: 01/24/19 17:39 Dose: 1 units Vital Signs - 8 hr 01/24/19 01/24/19 11:52 15:27 Temperature 97.8 F 98.0 F Pulse Rate 75 76 Respiratory 16 18 Rate Blood Pressure 126/80 136/81 (mmHg) O2 Sat by Pulse 99 99 Oximetry Oxygen Devices in Use Now: None Appearance: Comfortable, NAD Eyes: No Scleral Icterus, PERRLA Ears/Nose/Mouth/Throat: Clear Oropharnyx, Mucous Membranes Moist Neck: NL Appearance and Movements; NL JVP Respiratory: Symmetrical Chest Expansion and Respiratory Effort, Clear to Auscultation Cardiovascular: NL Sounds; No Murmurs; No JVD, RRR, No Edema Abdominal: NL Sounds; No Tenderness; No Distention Lymphatic: No Cervical Adenopathy Extremities: No Clubbing, Cyanosis Skin: No Rash or Ulcers Neurological: Alert and Oriented x 3, - - Right sided weakness 3/5. Left sided wnl 5/5. Slight right facial droop (improving per ) Nutrition: Taking PO's Result Diagrams: 01/24/19 06:03 01/24/19 06:03 Additional Lab and Data: Laboratory Results - last 24 hr 01/23/19 01/23/19 01/24/19 11:57 17:17 01:25 WBC RBC Hgb Hct MCV MCH MCHC RDW Plt Count MPV Neut % (Auto) Lymph % (Auto) [place] % (Auto) Eos % (Auto) Baso % (Auto) Absolute Neuts (auto) Absolute Lymphs (auto) Absolute Monos (auto) Absolute Eos (auto) Absolute Basos (auto) Absolute Nucleated RBC Nucleated RBC % Hem Pathologist Commnt Sodium Potassium Chloride Carbon Dioxide Anion Gap BUN Creatinine Est GFR ( Amer) Est GFR (Non-Af Amer) BUN/Creatinine Ratio Glucose POC Glucose (mg/dL) Calcium Magnesium TSH 1.97 Urine Color Yellow Urine Appearance Clear Urine pH 5.0 Ur Specific [place] 1.039 H Urine Protein 1+(30 mg/dl) A Urine Ketones Trace A Urine Blood Negative Urine Nitrate Negative Urine Bilirubin Negative Urine Urobilinogen Negative Ur Leukocyte Esterase Negative Urine WBC (Auto) Absent Urine RBC (Auto) Absent Ur Squamous Epith Cells Present A Urine Bacteria Absent Urine Glucose 1+(50 mg/dl) A 01/24/19 01/24/19 01/24/19 06:03 06:03 07:31 WBC 6.3 RBC 4.74 Hgb 13.8 L Hct 42 MCV 88 MCH 29 MCHC 33 RDW 14 Plt Count 114 L MPV 8.5 Neut % (Auto) 66.5 Lymph % (Auto) 24.7 [place] % (Auto) 6.5 Eos % (Auto) 1.6 Baso % (Auto) 0.7 Absolute Neuts (auto) 4.2 Absolute Lymphs (auto) 1.6 Absolute Monos (auto) 0.4 Absolute Eos (auto) 0.1 Absolute Basos (auto) 0 Absolute Nucleated RBC 0 Nucleated RBC % 0 Hem Pathologist Commnt Sodium 139 Potassium 4.2 Chloride 111 Carbon Dioxide 23 Anion Gap 5 BUN 21 Creatinine 1.35 H Est GFR ( Amer) 63.2 Est GFR (Non-Af Amer) 52.2 BUN/Creatinine Ratio 15.6 Glucose 93 POC Glucose (mg/dL) 99 Calcium 8.2 L Magnesium 2.1 TSH Urine Color Urine Appearance Urine pH Ur Specific [place] Urine Protein Urine Ketones Urine Blood Urine Nitrate Urine Bilirubin Urine Urobilinogen Ur Leukocyte Esterase Urine WBC (Auto) Urine RBC (Auto) Ur Squamous Epith Cells Urine Bacteria Urine Glucose 01/24/19 16:59 WBC RBC Hgb Hct MCV MCH MCHC RDW Plt Count MPV Neut % (Auto) Lymph % (Auto) [place] % (Auto) Eos % (Auto) Baso % (Auto) Absolute Neuts (auto) Absolute Lymphs (auto) Absolute Monos (auto) Absolute Eos (auto) Absolute Basos (auto) Absolute Nucleated RBC Nucleated RBC % Hem Pathologist Commnt Sodium Potassium Chloride Carbon Dioxide Anion Gap BUN Creatinine Est GFR ( Amer) Est GFR (Non-Af Amer) BUN/Creatinine Ratio Glucose POC Glucose (mg/dL) 189 H Calcium Magnesium TSH Urine Color Urine Appearance Urine pH Ur Specific [place] Urine Protein Urine Ketones Urine Blood Urine Nitrate Urine Bilirubin Urine Urobilinogen Ur Leukocyte Esterase Urine WBC (Auto) Urine RBC (Auto) Ur Squamous Epith Cells Urine Bacteria Urine Glucose Assess/Plan/Problems-Billing 1. Acute left pontine stroke He was outside the window for IV tPA and he has no evidence of LVO. I suspect the stroke is related to cardiac arrhythmia in the setting of new onset atrial flutter. 2. New onset atrial flutter 3. 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 - Keep him flat for the next 24 hours - Allow permissive hypertension with SBP goal of 120<160 mmHg. - Continue low dose atorvastatin since his LDL is < 70. The risk of complications with high intensity statin therapy outweighs the benefit. - Pt will need acute rehabilitation. He prefers to do acute rehabilitation at [facility]. - Discussed and counseled regarding fall precautions on anticoagulation therapy. - Discussed and educated the patient regarding secondary stroke preventions. Anticoagulation therapy will hopefully minimize the risk of new strokes - VTE prophylaxis with Eliquis starting tonight Time spent: 35 minutes obtaining history, examining the patient, education and counseling, and discussing the treatment plan as mentioned above. - Patient Problems (1) Left pontine stroke Comment: - Right sided weakness involving face, RUE, and RLE. - Started on Eliquis today (01/24) - OT ordered - PT to be ordered when patient can be upright - Needs to continue lying flat for the next 24 hrs - Allow permissive htn goal 120<160 SBP - Cont low dose statin (2) Atrial flutter Comment: - New Atrial Flutter with rate in 70s on tele - Asymptomatic - Started on Eliquis - Will need cardiology referral at discharge (3) Vascular dementia Comment: - Recently diagnosed by Dr Ellis as outpatient (4) CAD (coronary artery disease) Comment: - Cont ASA (5) Diabetes Comment: - Hold home oral medications and continue Lispro sliding scale and routine blood glucose monitoring (6) HTN (hypertension) Comment: - Cont to hold home BP medications to allow permissive HTN (7) DVT prophylaxis Comment: - Started on Eliquis (8) Full code status Status and Disposition: D/C medically stable. Attending: Chanell Sims
[2019-01-24] MEDS: Atorvastatin* 20 MG TAB PO SCH (20:00)
[2019-01-24] MEDS: Apixaban* 5 MG TAB PO SCH (20:00)
[2019-01-25 05:59] LABS: Hematocrit 40 % (36-46); Hemoglobin 13.7 g/dL (14.0-18.0); Mean Corpuscular HGB Conc 34 g/dL (31-36); Mean Corpuscular Hemoglobin 30 pg (27-31); Mean Corpuscular Volume 87 fL (80-94); Mean Platelet Volume 8.5 fL (7.4-10.4); Platelet Count 120 10^3/uL (150-450); Red Blood Count 4.61 10^6 /uL (4.18-5.48); Red Cell Distribution Width 14 % (10.5-15); White Blood Count 6.6 10^3/uL (3.5-10.8)
[2019-01-25 06:13] LABS: BUN/Creatinine Ratio 17.6 (8-20); Calcium 8.2 mg/dL (8.6-10.3); EGFR African American 65.5 (>60); EGFR Non-African American 54.1 (>60)
[2019-01-25] MEDS: NS 0.9% 1000 ML** 1,000 ML IV SCH (08:07)
[2019-01-25] MEDS: Insulin LISPRO* 1 UNITS UNIT SUBCUT SCH ×3 (08:41→17:07)
[2019-01-25] MEDS: Apixaban* 5 MG TAB PO SCH ×2 (08:43→20:34)
[2019-01-25] MEDS: Aspirin EC TAB* 81 MG TAB.EC PO SCH (08:43)
[2019-01-25] MEDS ORDERED: Senna TAB PO PRN (16:37)
--- NOTE | 2019-01-25 16:44 | PN ---
Subjective Date of Service: 01/25/19 Interval History: Assessed this morning while patient was resting in bed. Reports he feels "emotionally bad" as he is frustrated with current situation. Discussed depression after strokes and major life events. Offered support. Offered to chat with Madi Castanon and patient was agreeable. Reports he "physically" feels about the same as yesterday. Continues to have right sided weakness and occasional word finding difficulty. Objective Active Medications: Acetaminophen (Tylenol Tab*) 650 mg PO Q4H PRN PRN Reason: FEVER/PAIN Apixaban (Eliquis*) [address] [facility] Last Admin: 01/25/19 08:43 Dose: 5 mg Aspirin (Aspirin Ec Tab*) [address] [facility] Last Admin: 01/25/19 08:43 Dose: 81 mg Atorvastatin Calcium (Lipitor*) [address] [facility] Last Admin: 01/24/19 20:00 Dose: 20 mg Dextrose (D50w Syringe 50 Ml*) 12.5 gm IV PUSH .FOR FS < 60 - SS PRN PRN Reason: FS < 60 Docusate Sodium (Colace Cap*) [address] [facility] Sodium Chloride (Ns 0.9% 1000 Ml) 1,000 mls @ 100 mls/hr IV PER RATE [facility] Last Admin: 01/25/19 08:07 Dose: 100 mls/hr Insulin Human Lispro (Humalog*) [address] [facility]; Protocol Last Admin: 01/25/19 12:37 Dose: 1 units Senna (Senokot Tab*) 2 tab PO BEDTIME PRN PRN Reason: CONSTIPATION Vital Signs - 8 hr 01/25/19 01/25/19 12:05 15:24 Temperature 98.4 F 98.6 F Pulse Rate 78 77 Respiratory 16 18 Rate Blood Pressure 124/70 126/79 (mmHg) O2 Sat by Pulse 98 99 Oximetry Oxygen Devices in Use Now: None Appearance: Comfortable, NAD Eyes: No Scleral Icterus Ears/Nose/Mouth/Throat: Clear Oropharnyx, Mucous Membranes Moist Neck: NL Appearance and Movements; NL JVP Respiratory: Symmetrical Chest Expansion and Respiratory Effort, Clear to Auscultation Cardiovascular: NL Sounds; No Murmurs; No JVD, RRR, No Edema Abdominal: NL Sounds; No Tenderness; No Distention Lymphatic: No Cervical Adenopathy Extremities: No Clubbing, Cyanosis Skin: No Rash or Ulcers Neurological: Alert and Oriented x 3, NL Sensation, - - Right drift. RUE and RLE 3/5 in strength. LUE and LLE 5/5 in strength Nutrition: Taking PO's Result Diagrams: 01/25/19 05:31 01/25/19 05:31 Additional Lab and Data: Laboratory Results - last 24 hr 01/24/19 01/25/19 01/25/19 16:59 05:31 05:31 WBC 6.6 RBC 4.61 Hgb 13.7 L Hct 40 MCV 87 MCH 30 MCHC 34 RDW 14 Plt Count 120 L MPV 8.5 Sodium 139 Potassium 4.0 Chloride 112 H Carbon Dioxide 21 L Anion Gap 6 BUN 23 Creatinine 1.31 H Est GFR ( Amer) 65.5 Est GFR (Non-Af Amer) 54.1 BUN/Creatinine Ratio 17.6 Glucose 95 POC Glucose (mg/dL) 189 H Calcium 8.2 L 01/25/19 01/25/19 08:05 12:01 WBC RBC Hgb Hct MCV MCH MCHC RDW Plt Count MPV Sodium Potassium Chloride Carbon Dioxide Anion Gap BUN Creatinine Est GFR ( Amer) Est GFR (Non-Af Amer) BUN/Creatinine Ratio Glucose POC Glucose (mg/dL) 97 198 H Calcium Assess/Plan/Problems-Billing 1. Acute left pontine stroke He was outside the window for IV tPA and he has no evidence of LVO. I suspect the stroke is related to cardiac arrhythmia in the setting of new onset atrial flutter. 2. New onset atrial flutter 3. 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 - Keep him flat for the next 24 hours - Allow permissive hypertension with SBP goal of 120<160 mmHg. - Continue low dose atorvastatin since his LDL is < 70. The risk of complications with high intensity statin therapy outweighs the benefit. - Pt will need acute rehabilitation. He prefers to do acute rehabilitation at [facility]. - Discussed and counseled regarding fall precautions on anticoagulation therapy. - Discussed and educated the patient regarding secondary stroke preventions. Anticoagulation therapy will hopefully minimize the risk of new strokes - VTE prophylaxis with Eliquis starting tonight Time spent: 35 minutes obtaining history, examining the patient, education and counseling, and discussing the treatment plan as mentioned above. - Patient Problems (1) Left pontine stroke Comment: - Right sided weakness involving face, RUE, and RLE. - Started on Eliquis today (01/24). Hematology consulting on patient today given hx of HIT, but approved starting Eliquis before initiation. Cont Eliquis and ASA - OT/PT ordered. Called OT and requested they see him today even though he is on bedrest and maybe given him exercises for RUE and patient is frustrated with limitations in RUE. - Needs to continue lying flat per neurology - Allow permissive htn goal 120<160 SBP - Cont low dose statin (2) Atrial flutter Comment: - New Atrial Flutter with rate in 70s on tele - Asymptomatic - Started on Eliquis - Will need cardiology referral at discharge (3) Vascular dementia Comment: - Recently diagnosed by Dr Ellis as outpatient (4) CAD (coronary artery disease) Comment: - Cont ASA (5) Diabetes Comment: - Hold home oral medications and continue Lispro sliding scale and routine blood glucose monitoring (6) HTN (hypertension) Comment: - Cont to hold home BP medications to allow permissive HTN (7) DVT prophylaxis Comment: - Eliquis (8) Full code status Status and Disposition: Inpatient. [facility] referral in place. Attending: Chanell Sims
--- NOTE | 2019-01-25 19:09 | PN ---
Subjective Date of Service: 01/25/19 Length of Stay: 2 Days Neurology is following for the evaluation of stroke. Interval History: The right sided weakness seems to stabilize and no longer fluctuate. He denied any new weakness, headaches, or paresthesia. He is tolerating the anti- thrombotic agents. Review of Systems: Denied CP, SOB, or palpitations. Objective Active Medications: Acetaminophen (Tylenol Tab*) 650 mg PO Q4H PRN PRN Reason: FEVER/PAIN Apixaban (Eliquis*) 5 mg PO BID [facility] Last Admin: 01/25/19 08:43 Dose: 5 mg Aspirin (Aspirin Ec Tab*) 81 mg PO DAILY [facility] Last Admin: 01/25/19 08:43 Dose: 81 mg Atorvastatin Calcium (Lipitor*) 20 mg PO 2100 [facility] Last Admin: 01/24/19 20:00 Dose: 20 mg Dextrose (D50w Syringe 50 Ml*) 12.5 gm IV PUSH .FOR FS < 60 - SS PRN PRN Reason: FS < 60 Docusate Sodium (Colace Cap*) 100 mg PO BID [facility] Insulin Human Lispro (Humalog*) 0 units SUBCUT [facility]; Protocol Last Admin: 01/25/19 17:07 Dose: Not Given Senna (Senokot Tab*) 2 tab PO BEDTIME PRN PRN Reason: CONSTIPATION Vital Signs 01/24/19 01/24/19 01/25/19 19:39 23:42 03:53 Temperature 98.7 F 97.8 F 97.5 F Pulse Rate 77 76 64 Respiratory 16 16 16 Rate Blood Pressure 136/85 119/71 126/69 (mmHg) O2 Sat by Pulse 98 98 99 Oximetry 01/25/19 01/25/19 01/25/19 07:55 12:05 15:24 Temperature 98.0 F 98.4 F 98.6 F Pulse Rate 68 78 77 Respiratory 16 16 18 Rate Blood Pressure 132/78 124/70 126/79 (mmHg) O2 Sat by Pulse 97 98 99 Oximetry Intake and Output Last 24 Hours 01/23/19 01/24/19 01/25/19 01/26/19 06:59 06:59 06:59 06:59 Intake Total 1000 3592 2275 Output Total 1650 535 Balance 1000 1942 1740 Weight 187 lb 3.2 oz 187 lb 3.2 oz Intake: IV Fluids 1000 2998 2035 NS (0.9%) 204 1035 IVPB 54 NS (0.9%) 54 Oral 0 540 240 Output: Urine 1650 535 Other: Date of Last Bowel 01/25/19 Movement Estimated Stool Amount Small # Voids 1 Oxygen Devices in Use Now: None Neurology Exam: General: Well nourished, well developed, and in no acute distress HEENT: Normocephelic/atraumatic, sclera anicteric, mucous membranes moist Neck: Supple Chest: Clear to auscultation bilaterally Cardiovascular: irregular rate and rhythm Extremities: No clubbing, cyanosis, or edema Neurological Findings: Awake, alert, and oriented to person, place, and time. Speech: spastic dysarthria Cranial Nerve: PERRL, EOM intact, right facial droop. Motor: pyramidal long tract weakness graded as 4/5 on the right arm and leg. Sensation: intact to LT/PP bilaterally upper and lower extremities Deep Tendon Reflex: extensor plantar response on the right. He has 1+ reflexes on the left and 2+ on the left Finger to nose, rapid alternating movements intact without tremor, no dysdiadochokinesia Gait: not assessed due to posture related symptoms. Result Diagrams: 01/25/19 05:31 01/25/19 05:31 Additional Lab and Data: Laboratory Results - last 24 hr 01/24/19 01/25/19 01/25/19 16:59 05:31 05:31 WBC 6.6 RBC 4.61 Hgb 13.7 L Hct 40 MCV 87 MCH 30 MCHC 34 RDW 14 Plt Count 120 L MPV 8.5 Sodium 139 Potassium 4.0 Chloride 112 H Carbon Dioxide 21 L Anion Gap 6 BUN 23 Creatinine 1.31 H Est GFR ( Amer) 65.5 Est GFR (Non-Af Amer) 54.1 BUN/Creatinine Ratio 17.6 Glucose 95 POC Glucose (mg/dL) 189 H Calcium 8.2 L 01/25/19 01/25/19 08:05 12:01 WBC RBC Hgb Hct MCV MCH MCHC RDW Plt Count MPV Sodium Potassium Chloride Carbon Dioxide Anion Gap BUN Creatinine Est GFR ( Amer) Est GFR (Non-Af Amer) BUN/Creatinine Ratio Glucose POC Glucose (mg/dL) 97 198 H Calcium Assessment/Plan 1. Acute left pontine stroke 2. New onset atrial flutter 3. Most likely vascular dementia Recommendations: - Tolerating Eliquis 5 mg PO twice daily - Continue aspirin 81 mg daily given his known history of small vessel disease - D/c IV fluids - OOB to chair and plan for rehabilitation tomorrow or . - BP goal at this time: normotensive. NO need to start any anti-hypertensive agents unless his SBP > 180 mmHg - Continue low dose atorvastatin since his LDL is < 70. The risk of complications with high intensity statin therapy outweighs the benefit. - VTE prophylaxis with Eliquis starting tonight He can follow-up with me in 4-6 weeks as an outpatient. We will arrange for an appointment.
[2019-01-25] MEDS: Atorvastatin* 20 MG TAB PO SCH (20:34)
[2019-01-25] MEDS: Docusate CAP* 100 MG PO SCH (20:34)
--- NOTE | 2019-01-26 00:51 | CONS ---
CC: Dr. Sergey Tamez; [facility] * MEDICAL ONCOLOGY/HEMATOLOGY CONSULTATION NOTE: DATE OF CONSULT: 01/25/19 REASON FOR CONSULTATION: Anticoagulation for atrial fibrillation in the setting of a stroke. HISTORY OF PRESENT ILLNESS: Mr. Freeman is a 68-year-old male with a history of diabetes, coronary artery disease, bovine aortic valve replacement, previous heparin-induced thrombocytopenia, and a previous CVA. He presented to the emergency room on 01/23/19 with difficulty in his balance and marked weakness. He also noted issues with slurring of his speech. Symptoms are completely on the right side. He presented to the emergency room where he was evaluated by Neurology. Symptoms were felt to fall outside of the tPA window. CTA of the brain and neck were obtained looking for large vessel occlusion and were negative. He was found to have new onset of atrial fibrillation at the time of admission. At this time, situation has been discussed with our office and he has been placed on Eliquis after that discussion. Relevant past medical history includes admission in August 2010. At that time , he had had an aortic valve replacement, bovine, on 08/04/10, and then presented to the hospital approximately 5 weeks later with right leg swelling. CTA was obtained to rule out PE after a markedly positive D-dimer. CT scan showed bilateral scattered PEs that were acute. He was admitted to the hospital and found to have on lower extremity Dopplers with extensive bilateral lower extremity clot. This was felt to be related to recent surgery on his heart with extensive immobility. CT scan at that time of the chest, abdomen and pelvis did not show any signs of malignancy. Hypercoagulability panel was normal. The patient was started on anticoagulation with Lovenox and then bridged to Coumadin. He was followed by Dr. Morales of Hematology/Oncology through our office. There was an episode of heparin- induced thrombocytopenia with associated thrombosis. Fondaparinux was used, therefore, in place of the Lovenox and the patient was then transitioned to Coumadin. He followed up in the office and was maintained on Coumadin for 6 months. 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 PAST MEDICAL HISTORY: Otherwise significant for peripheral neuropathy, hypertension, hyperlipidemia, hepatitis C, previous history of narcolepsy, coronary artery disease, status post bypass in 2004 with stent in 2012, aortic valve replacement as noted above in 2010, kidney stones with urethral stent. HOME MEDICATIONS: 1. CBD oil. 2. Cozaar. 3. Magnesium. 4. Amantadine. 5. Metformin. 6. Glyburide. 7. Vitamin B12. 8. Vitamin C. 9. Zinc. 10. Vitamin D. 11. Phendimetrazine. ALLERGIES: HEPARIN causing HIT, as discussed above. FAMILY HISTORY: Father with myocardial infarction at 60. Mother at 89. Other family history of cardiac disease. SOCIAL HISTORY: No tobacco. Occasional alcohol. Lives with his . Retired. REVIEW OF SYSTEMS: Negative, except as discussed above. DIAGNOSTIC STUDIES/LAB DATA: Diagnostic studies: As discussed above. CTA of the brain and neck. CT of the brain revealed multiple old CVAs. Laboratory studies: CBC with a platelet count of 92 and a hemoglobin of 12.7. Metabolic profile reveals a slightly elevated creatinine at 1.37, otherwise unremarkable. IMPRESSION: A 68-year-old male with previous strokes and who is status post coronary artery disease, aortic valve replacement, myocardial infarction, heparin induced thrombocytopenia/thrombosis, and now with a new cerebrovascular accident. This new cerebrovascular accident has occurred in the setting of new onset of atrial fibrillation. The question raised for our office is whether it is safe to have him on Eliquis. Certainly, this is a reasonable choice in the setting of new onset atrial fibrillation and should not be altered by the fact that he has had heparin-induced thrombocytopenia in the past. There is clear evidence in the literature, including an article in Blood in 2017, entitled Direct oral anticoagulants for the treatment of HIT: Update of [facility] experience and literature review, with first author Srini. This mentions that not only are direct oral anticoagulant safe to use in patients who had previous HIT, but also are attractive options for the treatment of heparin- induced thrombocytopenia. Review of their experience and the review of the literature mentioned 46 patients treated with rivaroxaban, 12 with apixaban, and 11 with dabigatran. There were essentially no major hemorrhages and no significant thrombosis, occurring only in 1 patient. Therefore, it is safe to place this patient on Eliquis 5 mg b.i.d. for treatment of his atrial fibrillation even in the setting of prior HIT. [id number]/[facility] #: [id number] [facility]
[2019-01-26] MEDS: Insulin LISPRO* 1 UNITS UNIT SUBCUT SCH ×3 (08:01→16:44)
[2019-01-26] MEDS: Docusate CAP* 100 MG PO SCH ×2 (08:15→20:20)
[2019-01-26] MEDS: Apixaban* 5 MG TAB PO SCH ×2 (08:15→20:20)
[2019-01-26] MEDS: Aspirin EC TAB* 81 MG TAB.EC PO SCH (08:15)
[2019-01-26 08:57] LABS: BUN/Creatinine Ratio 16.5 (8-20); Calcium 8.6 mg/dL (8.6-10.3); EGFR African American 71.7 (>60); EGFR Non-African American 59.3 (>60); Potassium 3.9 mmol/L (3.5-5.0)
--- NOTE | 2019-01-26 13:53 | PN ---
Subjective Date of Service: 01/26/19 Length of Stay: 3 Days Neurology is following for stroke. Interval History: He feels well today. He wants to be shaved. He continues to have constant weakness in the right arm and leg (symmetrical) with associated right facial droop. He denied any double vision. He denied any visual disturbance. He is tolerating both Eliquis and aspirin therapy. He has no reported bleeding or ecchyomosis. Review of Systems: Denied CP, SOB, or palpitations. Objective Active Medications: Acetaminophen (Tylenol Tab*) 650 mg PO Q4H PRN PRN Reason: FEVER/PAIN Apixaban (Eliquis*) 5 mg PO BID [facility] Last Admin: 01/26/19 08:15 Dose: 5 mg Aspirin (Aspirin Ec Tab*) 81 mg PO DAILY [facility] Last Admin: 01/26/19 08:15 Dose: 81 mg Atorvastatin Calcium (Lipitor*) 20 mg PO 2100 [facility] Last Admin: 01/25/19 20:34 Dose: 20 mg Dextrose (D50w Syringe 50 Ml*) 12.5 gm IV PUSH .FOR FS < 60 - SS PRN PRN Reason: FS < 60 Docusate Sodium (Colace Cap*) 100 mg PO BID [facility] Last Admin: 01/26/19 08:15 Dose: 100 mg Insulin Human Lispro (Humalog*) 0 units SUBCUT AC [facility]; Protocol Last Admin: 01/26/19 12:23 Dose: 5 units Senna (Senokot Tab*) 2 tab PO BEDTIME PRN PRN Reason: CONSTIPATION Vital Signs 01/25/19 01/25/19 01/25/19 15:24 19:32 20:00 Temperature 98.6 F 98.6 F Pulse Rate 77 77 Respiratory 18 22 18 Rate Blood Pressure 126/79 115/73 (mmHg) O2 Sat by Pulse 99 99 Oximetry 01/25/19 01/26/19 01/26/19 23:25 02:45 07:45 Temperature 98.2 F 97.8 F 98.8 F Pulse Rate 61 75 77 Respiratory 16 16 16 Rate Blood Pressure 144/76 147/72 132/71 (mmHg) O2 Sat by Pulse 97 97 97 Oximetry 01/26/19 01/26/19 08:00 11:24 Temperature 98.2 F Pulse Rate 81 Respiratory 17 16 Rate Blood Pressure 128/82 (mmHg) O2 Sat by Pulse 99 Oximetry Intake and Output Last 24 Hours 01/24/19 01/25/19 01/26/19 01/27/19 06:59 06:59 06:59 06:59 Intake Total 1000 3592 3500 Output Total 1650 1535 350 Balance 1000 1941 1965 -350 Weight 187 lb 3.2 oz 187 lb 3.2 oz Intake: IV Fluids 1000 2998 3035 NS (0.9%) 2048 1035 IVPB 54 NS (0.9%) 54 Oral 0 540 465 Output: Urine 1650 1535 350 Other: Date of Last Bowel 01/25/19 Movement Estimated Stool Amount Small # Voids 1 2 Oxygen Devices in Use Now: None, Other Neurology Exam: General: Well nourished, well developed, and in no acute distress HEENT: Normocephelic/atraumatic, sclera anicteric, mucous membranes moist Neck: Supple Chest: Clear to auscultation bilaterally Cardiovascular: irregular rate and rhythm Extremities: No clubbing, cyanosis, or edema Neurological Findings: Awake, alert, and oriented to person, place, and time. Speech: spastic dysarthria Cranial Nerve: PERRL, EOM intact, right facial droop. Motor: pyramidal long tract weakness graded as 4/5 on the right arm and leg. Sensation: intact to LT/PP bilaterally upper and lower extremities Deep Tendon Reflex: extensor plantar response on the right. He has 1+ reflexes on the left and 2+ on the left Finger to nose, rapid alternating movements intact without tremor, no dysdiadochokinesia Gait: not assessed due to posture related symptoms Result Diagrams: 01/25/19 05:31 01/26/19 07:57 Additional Lab and Data: Laboratory Results - last 24 hr 01/24/19 01/25/19 01/25/19 16:59 05:31 05:31 WBC 6.6 RBC 4.61 Hgb 13.7 L Hct 40 MCV 87 MCH 30 MCHC 34 RDW 14 Plt Count 120 L MPV 8.5 Sodium 139 Potassium 4.0 Chloride 112 H Carbon Dioxide 21 L Anion Gap 6 BUN 23 Creatinine 1.31 H Est GFR ( Amer) 65.5 Est GFR (Non-Af Amer) 54.1 BUN/Creatinine Ratio 17.6 Glucose 95 POC Glucose (mg/dL) 189 H Calcium 8.2 L 01/25/19 01/25/19 08:05 12:01 WBC RBC Hgb Hct MCV MCH MCHC RDW Plt Count MPV Sodium Potassium Chloride Carbon Dioxide Anion Gap BUN Creatinine Est GFR ( Amer) Est GFR (Non-Af Amer) BUN/Creatinine Ratio Glucose POC Glucose (mg/dL) 97 198 H Calcium Assessment/Plan 1. Acute left pontine stroke 2. New onset atrial flutter 3. Most likely vascular dementia Recommendations: - Tolerating Eliquis 5 mg PO twice daily - Continue aspirin 81 mg daily given his known history of small vessel disease - He appears - BP goal at this time: normotensive. NO need to start any anti-hypertensive agents unless his SBP > 180 mmHg - Continue low dose atorvastatin since his LDL is < 70. The risk of complications with high intensity statin therapy outweighs the benefit. - VTE prophylaxis with Eliquis He can follow-up with me in 4-6 weeks as an outpatient. We will arrange for an appointment. I will sign off.
[2019-01-26 14:31] LABS: Magnesium 1.6 mg/dL (1.9-2.7)
[2019-01-26] MEDS ORDERED: Magnesium Sulfate 2 GM IV* 2 GM/50 ML BAG IVPB ONE (16:10)
--- NOTE | 2019-01-26 16:17 | PN ---
Subjective Date of Service: 01/26/19 Interval History: Patient sitting in chair with at bedside on assessment. Reports he feels improved today as he is feeling positive about being able to walk with physical therapy today and no longer being on bed rest. Reports mild improvement in right sided weakness. Denies cp, sob, palpitations, nausea, vomiting, diarrhea, dizziness, headache. Objective Active Medications: Acetaminophen (Tylenol Tab*) 650 mg PO Q4H PRN PRN Reason: FEVER/PAIN Apixaban (Eliquis*) 5 mg PO BID [facility] Last Admin: 01/26/19 08:15 Dose: 5 mg Aspirin (Aspirin Ec Tab*) 81 mg PO DAILY [facility] Last Admin: 01/26/19 08:15 Dose: 81 mg Atorvastatin Calcium (Lipitor*) 20 mg PO 2100 [facility] Last Admin: 01/25/19 20:34 Dose: 20 mg Dextrose (D50w Syringe 50 Ml*) 12.5 gm IV PUSH .FOR FS < 60 - SS PRN PRN Reason: FS < 60 Docusate Sodium (Colace Cap*) 100 mg PO BID [facility] Last Admin: 01/26/19 08:15 Dose: 100 mg Magnesium Sulfate (Magnesium Sulfate 2 Gm Iv*) 2 gm in 50 mls @ 50 mls/hr IVPB ONCE ONE Stop: 01/26/19 17:09 Insulin Human Lispro (Humalog*) 0 units SUBCUT [facility]; Protocol Last Admin: 01/26/19 12:23 Dose: 5 units Senna (Senokot Tab*) 2 tab PO BEDTIME PRN PRN Reason: CONSTIPATION Vital Signs - 8 hr 01/26/19 11:24 Temperature 98.2 F Pulse Rate 81 Respiratory 16 Rate Blood Pressure 128/82 (mmHg) O2 Sat by Pulse 99 Oximetry Oxygen Devices in Use Now: None, Other Appearance: Comfortable, NAD Eyes: No Scleral Icterus Ears/Nose/Mouth/Throat: Clear Oropharnyx, Mucous Membranes Moist Neck: NL Appearance and Movements; NL JVP Respiratory: Symmetrical Chest Expansion and Respiratory Effort, Clear to Auscultation Cardiovascular: NL Sounds; No Murmurs; No JVD, RRR, No Edema Abdominal: NL Sounds; No Tenderness; No Distention Lymphatic: No Cervical Adenopathy Extremities: No Clubbing, Cyanosis Skin: No Rash or Ulcers Neurological: Alert and Oriented x 3, - - Strength 3/5 in RUE and RLE. Strength 5/5 in LUE and LLE. Nutrition: Taking PO's Result Diagrams: 01/25/19 05:31 01/26/19 07:57 Additional Lab and Data: Laboratory Results - last 24 hr 01/25/19 01/26/19 01/26/19 16:43 07:26 07:57 Sodium 138 Potassium 3.9 Chloride 109 Carbon Dioxide 24 Anion Gap 5 BUN 20 Creatinine 1.21 H Est GFR ( Amer) 71.7 Est GFR (Non-Af Amer) 59.3 BUN/Creatinine Ratio 16.5 Glucose 114 H POC Glucose (mg/dL) 142 H 117 H Calcium 8.6 Magnesium 1.6 L 01/26/19 11:45 Sodium Potassium Chloride Carbon Dioxide Anion Gap BUN Creatinine Est GFR ( Amer) Est GFR (Non-Af Amer) BUN/Creatinine Ratio Glucose POC Glucose (mg/dL) 351 H Calcium Magnesium Microbiology and Other Data: . Assess/Plan/Problems-Billing . - Patient Problems (1) Left pontine stroke Comment: - Right sided weakness involving face, RUE, and RLE. Improving. - Started on Eliquis (01/24). Hematology consulting due to hx of HIT, but approved Eliquis as anticoag - Cont ASA - OT/PT and PMRU consult - Per Dr Ortiz: BP goal at this time - normotensive, therefore, no need to start any anti-hypertensive agents unless his SBP > 180 mmHg - Continue low dose atorvastatin - Will need follow-up with Dr Ortiz in 4-6 weeks as an outpatient. (2) Atrial flutter Comment: - New Atrial Flutter with rate in 70s on tele - Asymptomatic - Started on Eliquis - Due to new onset patient had echo which was revealed normal EF and no significant valvular disease. Patient has remained on tele and rate has been wnl. Trop was negative. Discussed new onset aflutter with patient and . Discussed plan for follow up with cardiology as outpatient since he is stable and currently dealing with stroke. Both stating understanding. We will continue anticoagulation and refer him to percolator operator at discharge. (3) Vascular dementia Comment: - Recently diagnosed by Dr Ellis as outpatient (4) CAD (coronary artery disease) Comment: - Cont ASA (5) Diabetes Comment: - Hold home oral medications and continue Lispro sliding scale and routine blood glucose monitoring (6) HTN (hypertension) Comment: - Per Dr Ortiz: BP goal at this time - normotensive, therefore, no need to start any anti-hypertensive agents unless his SBP > 180 mmHg (7) DVT prophylaxis Comment: - Vaughn (8) Full code status Status and Disposition: Inpatient. PMRU referral in place. Attending: Chanell Sims
[2019-01-26] MEDS: Atorvastatin* 20 MG TAB PO SCH (20:20)
[2019-01-27 06:05] LABS: BUN/Creatinine Ratio 18.7 (8-20); Calcium 8.6 mg/dL (8.6-10.3); EGFR African American 61.1 (>60); EGFR Non-African American 50.5 (>60); Magnesium 1.9 mg/dL (1.9-2.7); Potassium 3.8 mmol/L (3.5-5.0)
[2019-01-27] MEDS: Insulin LISPRO* 1 UNITS UNIT SUBCUT SCH ×2 (08:48→13:03)
[2019-01-27] MEDS: Docusate CAP* 100 MG PO SCH (08:57)
[2019-01-27] MEDS: Apixaban* 5 MG TAB PO SCH (08:57)
[2019-01-27] MEDS: Aspirin EC TAB* 81 MG TAB.EC PO SCH (08:58)
--- NOTE | 2019-01-27 11:44 | PN ---
Subjective Date of Service: 01/27/19 Interval History: Patient has persistent right sided weakness. Patient denies new deficits. Patient denies F/C, N/V, abdominal pain, diarrhea, dysuria, dizziness on standing, CP, SOB, or other pain. Family History: Unchanged from Admission Social History: Unchanged from Admission Past Medical History: Unchanged from Admission Objective Active Medications: Acetaminophen (Tylenol Tab*) 650 mg PO Q4H PRN PRN Reason: FEVER/PAIN Apixaban (Eliquis*) 5 mg PO BID [facility] Last Admin: 01/27/19 08:57 Dose: 5 mg Aspirin (Aspirin Ec Tab*) 81 mg PO DAILY [facility] Last Admin: 01/27/19 08:58 Dose: 81 mg Atorvastatin Calcium (Lipitor*) 20 mg PO 2100 [facility] Last Admin: 01/26/19 20:20 Dose: 20 mg Dextrose (D50w Syringe 50 Ml*) 12.5 gm IV PUSH .FOR FS < 60 - SS PRN PRN Reason: FS < 60 Docusate Sodium (Colace Cap*) 100 mg PO BID [facility] Last Admin: 01/27/19 08:57 Dose: 100 mg Insulin Human Lispro (Humalog*) 0 units SUBCUT AC [facility]; Protocol Last Admin: 01/27/19 08:48 Dose: Not Given Senna (Senokot Tab*) 2 tab PO BEDTIME PRN PRN Reason: CONSTIPATION Vital Signs - 8 hr 01/27/19 01/27/19 03:48 08:05 Temperature 97.4 F 97.3 F Pulse Rate 76 77 Respiratory 16 18 Rate Blood Pressure 127/83 125/82 (mmHg) O2 Sat by Pulse 95 100 Oximetry Oxygen Devices in Use Now: None Appearance: Patient is a 68yo male who appears stated age and is sitting in the bed in [facility]. Eyes: No Scleral Icterus, PERRLA Ears/Nose/Mouth/Throat: NL Teeth, Lips, Gums, Clear Oropharnyx, Mucous Membranes Moist Neck: NL Appearance and Movements; NL JVP, Trachea Midline Respiratory: Symmetrical Chest Expansion and Respiratory Effort, Clear to Auscultation Cardiovascular: NL Sounds; No Murmurs; No JVD, RRR, No Edema Abdominal: NL Sounds; No Tenderness; No Distention, No Hepatosplenomegaly Lymphatic: No Cervical Adenopathy Extremities: No Edema, No Clubbing, Cyanosis Skin: No Rash or Ulcers, No Nodules or Sclerosis Neurological: NL Sensation, NL Muscle Strength and Tone, - - CN II-XII intact. 4 /5 strength on right side. Result Diagrams: 01/25/19 05:31 01/27/19 05:19 Additional Lab and Data: Laboratory Results - last 24 hr Microbiology and Other Data: . Assess/Plan/Problems-Billing Patient is a 68yo male with a PMH for Multiple CVAs, MERLINE, AVR, CAD, Hep C. Patient is admitted with a new CVA with right sided weakness which is improving. Patient also has new aflutter which is the likely cause of his CVA. - Patient Problems (1) Atrial flutter Current Visit: Yes Status: Acute Code(s): I48.92 - UNSPECIFIED ATRIAL FLUTTER SNOMED Code(s): 1944191 Comment: - New Atrial Flutter with rate in 70s on tele - Asymptomatic - Started on Eliquis - Follow up Cardiology outpatient. (2) CAD (coronary artery disease) Current Visit: Yes Status: Acute Code(s): I25.10 - ATHSCL HEART DISEASE OF [place] CORONARY ARTERY W/O ANG PCTRS SNOMED Code(s): 69283768 Comment: - Cont ASA, Statin, Eliquis - No CP (3) Diabetes Current Visit: Yes Status: Acute Code(s): E11.9 - TYPE 2 DIABETES MELLITUS WITHOUT COMPLICATIONS SNOMED Code(s): 12042292 Comment: - Hold home oral medications and continue Lispro sliding scale and routine blood glucose monitoring (4) HTN (hypertension) Current Visit: Yes Status: Acute Code(s): I10 - ESSENTIAL (PRIMARY) HYPERTENSION SNOMED Code(s): 75635195 Comment: - Per Dr Ortiz: BP goal at this time - normotensive, therefore, no need to start any anti-hypertensive agents unless his SBP > 180 mmHg (5) Left pontine stroke Current Visit: Yes Status: Acute Code(s): I63.50 - CEREB INFRC DUE TO UNSP OCCLS OR STENOS OF UNSP CEREB ARTERY SNOMED Code(s): 095377541 Comment: - Right sided weakness involving face, RUE, and RLE. Improving. - Started on Eliquis (01/24). Hematology consulting due to hx of MERLINE, but approved Eliquis as anticoag - Cont ASA - OT/PT and PMRU consult - Per Dr Ortiz: BP goal at this time - normotensive, therefore, no need to start any anti-hypertensive agents unless his SBP > 180 mmHg - Continue low dose atorvastatin - Will need follow-up with Dr Ortiz in 4-6 weeks as an outpatient. (6) Vascular dementia Current Visit: Yes Status: Acute Code(s): F01.50 - VASCULAR DEMENTIA WITHOUT BEHAVIORAL DISTURBANCE SNOMED Code(s): 670336153 Comment: - Recently diagnosed by Dr Ellis as outpatient - Mild (7) DVT prophylaxis Current Visit: Yes Status: Acute Code(s): YVE2300 - SNOMED Code(s): 640047816 Comment: - Eliquis (8) Full code status Current Visit: Yes Status: Acute Code(s): Z78.9 - OTHER SPECIFIED HEALTH STATUS SNOMED Code(s): 918108280 Status and Disposition: Inpatient. PMRU referral in place, may need rehab.
[2019-01-27 12:58] VITALS: BP 124/80
--- NOTE | 2019-01-27 16:57 | DS ---
CC: Dr. Sergey Tamez * DISCHARGE SUMMARY: DATE OF ADMISSION: 01/23/19 DATE OF DISCHARGE: 01/27/19 PRIMARY CARE PROVIDER: Dr. Sergey Tamez. MY ATTENDING WHILE IN THE HOSPITAL: Dr. Steve Jara.* (DICTATED BY MACIE DELEON) PRIMARY DISCHARGE DIAGNOSES: 1. 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 2. Atrial flutter, new onset. SECONDARY DISCHARGE DIAGNOSES: 1. Coronary artery disease. 2. Aortic valve replacement. 3. Diabetes. 4. History of kidney stones. 5. History of deep venous thrombosis. 6. Essential tremor. 7. History of hepatitis C. 8. History of heparin-induced thrombocytopenia and thrombosis. 9. History of previous cerebrovascular accident. 10. Peripheral neuropathy. 11. Vascular dementia. STUDIES DONE WHILE IN THE HOSPITAL: Chest x-ray from 01/23/19 read as no acute intrathoracic disease. Brain CT from 01/23/19 read as multiple old infarcts involving the left middle cerebral artery and bilateral cerebellar artery distributions. No CT evidence for acute ischemia or intracranial hemorrhage. Mild involutional change. Head CTA read as no evidence for central intracranial arterial occlusion or stenosis. Negative for carotid or vertebral artery stenosis. Brain MRI read as findings consistent with small acute to subacute nonhemorrhagic infarct within the nataliia on the left side, findings most consistent with moderate chronic small-vessel ischemic changes and multiple chronic lacunar infarcts. Transthoracic echocardiogram from 01/24/19 read as [id number] concentric left ventricular hypertrophy, left ventricular systolic function at the lower limits of normal, estimated ejection fraction of 50% to 55%. Ventricular septal wall motion has a postoperative appearance. Right ventricular chamber size and systolic function within normal limits. A patent foramen ovale is not demonstrated by color Doppler or agitated contrast. A bovine bioprosthetic aortic valve was present with normal function. Moderate mitral annular calcification present, mild mitral regurgitation. No evidence of mitral valve stenosis. Trace tricuspid regurgitation. No significant pericardial effusion. No significant changes when compared to previous studies on 09/10/10. MEDICATIONS AT DISCHARGE: 1. Metformin 1000 mg p.o. b.i.d. 2. Losartan 25 mg p.o. daily. 3. Tylenol 650 mg q.4 hours as needed. 4. Eliquis 5 mg p.o. b.i.d. 5. Aspirin 81 mg p.o. daily. 6. Lipitor 20 mg p.o. daily. 7. Docusate 100 mg p.o. b.i.d. 8. Insulin lispro sliding scale with meals. 9. Senokot 2 tabs p.o. at bedtime as needed. New medications at discharge: 1. Tylenol. 2. Eliquis. 3. Aspirin. 4. Lipitor. 5. Colace. 6. Insulin. 7. Senokot. Medications discontinued at discharge: 1. Metformin. 2. Losartan. HOSPITAL COURSE: This is a brief summary of the patient's presentation. For more details, please see the history and physical from Lynette Cabezas NP, on 01/23/19. In brief, the patient is a 68-year-old male with past medical history significant for the above, who presented to the emergency department with at that time approximately 1 day of balance issues and right-sided weakness as well as right-sided facial droop and speech slurring. The patient came to the emergency department, had no large-vessel occlusion and was out of the tPA window. The patient had excellent lipid profile. The patient had no hemoglobin A1c while in the hospital. The patient was found to be in atrial flutter, rate controlled in the emergency department. The patient was seen in consultation by Dr. Amalia Joseph of Neurology, who recommended admission. The patient had the head of his bed flat for 1 hour with gentle normal saline and permissive hypertension. The patient's anticoagulation was delayed for a day due to high risk of hemorrhagic conversion. The patient had a brain MRI showing an acute infarct as above. The patient was started on Eliquis due to history of MERLINE as well as aspirin given his multiple lacunar infarcts. The patient was continued on low-dose Lipitor. The patient was seen by Physical Therapy and Occupational Therapy and deemed to have rehab needs. The patient was seen in consultation by Dr. Stewart of Hematology/Oncology, who said that Eliquis was a good option for anticoagulation given the patient's new atrial flutter. The patient was stable and remained rate controlled throughout his hospitalization. The patient's blood pressure remained on the low end of normal during his hospitalization off of his losartan and this was not restarted. The patient's blood glucose control was good while in the hospital. The patient progressed during this hospitalization with regards to his right- sided weakness and was stable and amenable for discharge to [facility] on 01/27/19. PHYSICAL EXAM ON DISCHARGE: General: The patient is a 68-year-old male, who appears stated age and sitting comfortably in bed, in no acute distress. Vital Signs: Temperature 97.3, pulse rate 77, respiratory rate 18, oxygen saturation 100% on room air, blood pressure 125/82. HEENT: Head normocephalic, atraumatic. Sclerae anicteric. No conjunctival injection. Nasal mucosa moist. Oral mucosa moist. No pharyngeal erythema, discharge, or exudate. Neck: Supple, nontender. No lymphadenopathy. No carotid bruits auscultated. No JVD. Cardiac: Irregularly irregular rhythm. No clicks, murmurs, gallops, or rubs. Pulses are 2+ in the bilateral dorsalis pedis, posterior tibialis, and radial areas. Respiratory: Clear to auscultation bilaterally. No wheezes, rales, or rhonchi. Good air exchange bilaterally. Abdomen: Soft, nontender, nondistended. Bowel sounds present and normoactive in all 4 quadrants. No hepatosplenomegaly. No abdominal bruits auscultated. No hepatojugular reflux. Genitourinary: No suprapubic or CVA tenderness. Skin: Clean, dry, and intact. No rash. Neuro: Slight right-sided facial droop. A 4/5 strength in the right upper and lower extremities distally and proximally. Decreased speed of finger taps in the right hand. Cerebellar testing performed without difficulty. Sensation intact. Psychiatric: Pleasant and cooperative. DISCHARGE PLAN: The patient will be discharged to acute rehab with a goal of returning to independent living at home. The patient will be started on Lipitor , aspirin, and Eliquis as above. The patient should follow up with Cardiology out-patient for new-onset atrial flutter and the consideration of definitive treatment for this is indicated; however, the patient is rate controlled, has no signs of cardiomyopathy and is hemodynamically stable. The patient should follow up with Neurology within 1 month for routine post-stroke care. The patient should have close monitoring of his blood pressure and his losartan should be resumed for renal protection if indicated in the future. The patient should not be started on Plavix due to the concurrent use of Eliquis and aspirin. The patient should return to the hospital for alarming symptoms such as worsening weakness, passing out, chest pain, shortness of breath. The patient should have a heart-healthy diet without caffeine and engage in activity as tolerated. The patient's phendimetrazine has been held at this time and he has been cautioned regarding its use given his atrial flutter, though he takes this medication only infrequently. The patient's glyburide has also been stopped. This may be resumed at discharge or replaced with a different antihyperglycemic medication. The patient will be maintained on his insulin sliding scale while on PMRU. TIME SPENT: Approximately 60 minutes was spent on the discharge of this patient , 30 of which was spent [id number] with the patient obtaining history and physical and discussing treatment plan. MACIE DELEON [id number]/CPS #: [id number] BRAD
== END 2019-01-27 15:15 | DRG 65 ==
LOC: ED 11:08 → MEDTELE 19:45 → OBSVTOIN 01-24 16:00 → MEDTELE 01-24 19:09
PROVIDERS: ADMIT Internal Medicine; ATTEND Internal Medicine
DX: I63.9 Cerebral infarction, unspecified (principal); I48.92 Unspecified atrial flutter; G81.91 Hemiplegia, unspecified affecting right dominant side; R29.705 NIHSS score 5; G25.0 Essential tremor; E11.42 Type 2 diabetes mellitus with diabetic polyneuropathy; I25.10 Atherosclerotic heart disease of native coronary artery without angina pectoris; I10 Essential (primary) hypertension; I48.91 Unspecified atrial fibrillation; E78.5 Hyperlipidemia, unspecified; R47.81 Slurred speech; I08.1 Rheumatic disorders of both mitral and tricuspid valves; F01.50 Vascular dementia, unspecified severity, without behavioral disturbance, psychotic disturbance, mood disturbance, and anxiety; R29.810 Facial weakness; Z88.8 Allergy status to other drugs, medicaments and biological substances; Z95.1 Presence of aortocoronary bypass graft; Z95.2 Presence of prosthetic heart valve; Z87.442 Personal history of urinary calculi; Z95.5 Presence of coronary angioplasty implant and graft; Z86.19 Personal history of other infectious and parasitic diseases; Z72.89 Other problems related to lifestyle; Z82.49 Family history of ischemic heart disease and other diseases of the circulatory system; Z86.718 Personal history of other venous thrombosis and embolism; Z86.73 Personal history of transient ischemic attack (TIA), and cerebral infarction without residual deficits; Z79.4 Long term (current) use of insulin; Z79.01 Long term (current) use of anticoagulants; Z79.82 Long term (current) use of aspirin
CPT/HCPCS: 36415; 70450; 70496; 70498; 70551; 71045; 80048; 80053; 80061; 81003; 81015; 83605; 83735; 84443; 84484; 85025; 85027; 85060; 85610; 85730; 86850; 86900; 86901; 93005; 93306; 99223; 99283; A9270-GY; G8978-GP-CK; G8979-GP-CI; G8987-GO-CL; G8988-GO-CI; J3475; Q9967

== ENCOUNTER 2019-01-27 13:44 | Inpatient (IN) | payer MEDICARE ==
[2019-01-27] MEDS ORDERED: Senna TAB PO PRN (16:04)
[2019-01-27] MEDS ORDERED: Dextrose 50% Syringe 50 ML* 25 GM/50 ML SYRINGE IV PUSH PRN (16:10)
[2019-01-27] MEDS: Atorvastatin* 20 MG TAB PO SCH (17:14)
[2019-01-27] MEDS: Insulin LISPRO* 1 UNITS UNIT SUBCUT SCH ×2 (17:14→21:28)
[2019-01-27] MEDS: Apixaban* 5 MG TAB PO SCH (21:27)
[2019-01-27] MEDS: Memantine TAB* 5 MG PO SCH (21:27)
[2019-01-27] MEDS: Docusate CAP* 100 MG PO SCH (21:30)
--- NOTE | 2019-01-27 23:03 | HP ---
ADMISSION HISTORY AND PHYSICAL: DATE OF ADMISSION: 01/27/19 REASON FOR ADMISSION: Left pontine CVA with right-sided weakness. HISTORY OF PRESENT ILLNESS: Luis E Freeman is a 68-year-old white male. His medical history is significant for diabetes. He had a 4 vessel bypass done in 2004, he had a stent in 2011 and he had an aortic valve replacement in 2010. He also has a history of diabetic peripheral neuropathy. On 01/22/19, the patient was raking leaves in his backyard. He felt like he was off balance. He initially thought it was vertigo or something from his inner ear. He went inside and went to bed. The next day he was still having more difficulty with balance having trouble moving and having trouble with his speech. He told his he needs to go to the hospital. The patient was brought into the hospital well outside the time for TPA. He was noted to have a right-sided facial droop and a right-sided weakness. A code rivas was called. He had a CAT scan of his brain which was negative for a large vessel occlusion. The CAT scan did show multiple old infarcts. There was a neurology consult done with Dr. Amalia Joseph. She advised that the patient lie flat as he seems to get better lying supine. He had an MRI of his brain 01/24/19 showing a non-hemorrhagic infarct within the nataliia on the left side and the patient did have multiple chronic lacunar infarcts noted. The patient also had atrial flutter noted on Telemetry. It was recommended that the patient be anticoagulated. Because the patient had a previous history of heparin induced thrombocytopenia, he had a hemology consultation. The patient was ultimately put on Eliquis. The patient continued to have right-sided weakness. He was kept on an aspirin and Eliquis. He was started on Lipitor as well. It was felt that he did not need to start any anti- hypertensive agents unless his systolic went above 180. The patient was felt to have physical therapy, occupational therapy and speech therapy needs. He is now being admitted for inpatient rehab so that he might return to independent living. PAST MEDICAL HISTORY: Significant for the aforementioned diabetes mellitus, coronary artery disease, 4 vessel bypass, aortic valve replacement, diabetic peripheral neuropathy, essential tremor, hepatitis C, and he was recently diagnosed with probable vascular dementia and started on Namenda. CURRENT MEDICATIONS: Include: 1. Eliquis. 2. Baby aspirin a day. 3. Lipitor. 4. Namenda. 5. Lispro insulin. ALLERGIES: The patient has an allergy to HEPARIN. SOCIAL HISTORY: He is a non-smoker, social drinker. He smokes marijuana several times a week. 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 He lives in a 2-jaquan house with his . You enter into the garage and there is a flight tears up to the main level. 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 REVIEW OF SYSTEMS: No current shortness of breath or chest pain. PHYSICAL EXAMINATION VITAL SIGNS: The patient's temperature is 98.2, blood pressure is 124/71, pulse is 76, respirations 18. HEENT: He appears to have a slight right facial palsy. He has a slight dysarthria NECK: Supple. LUNGS: Sounded clear to auscultation bilaterally. HEART: Sounds were regular. S1 and S2 were audible. ABDOMEN: Soft and nontender. EXTREMITIES: Showed fairly normal muscle tone. Peripheral pulses were intact. NEUROLOGIC: He had possibly decreased sensation in his feet. A flat affect was noted. Muscle strength on the right appeared to be about 3-4/5 in the right leg and about 4/5 on right arm. FUNCTIONAL EXAM: He transfers with min assist. ASSESSMENT: Left pontine cerebrovascular accident with right hemiparesis. PLAN: Our plan is to integrate him into a comprehensive and therapeutic rehab program with the following goals: 1. Physical Therapy will see the patient. They are going to work on functional transfer training, ambulation training with a walker. 2. Occupational Therapy will see the patient and work on his activities of daily living including toileting and toilet transfers. 3. He will be continued on anticoagulation with Eliquis for both his atrial flutter and his DVT prophylaxis. 4. He will continue a baby aspirin a day for small vessel disease. 5. For his diabetes, we are going to continue sliding scale insulin. We are going to add back in his Glucophage. We will start with 500 twice a day and increase from there. He was also on another diabetic medicine at home, glyburide. We will add this in as needed. 6. For his dementia, we will restart his Namenda. 7. We are going to continue to hold his Losartan his blood pressures ride a little high. 8. Advanced directives. The patient is a full code. 9. clinical services assistant will be closely involved to make sure that any services and equipment the patient requires are in place prior to discharge. 10. Family training as appropriate. 11. Home with appropriate services. ESTIMATED LENGTH OF STAY: 17 to 21 days. [id number]/CPS #: [id number] MTDD
[2019-01-28 05:45] LABS: ABS Basophils 0 10^3/ul (0-0.2); ABS Eosinophils 0.1 10^3/ul (0-0.6); ABS Lymphocytes 1.6 10^3/ul (1.0-4.8); ABS Monocytes 0.5 10^3/ul (0-0.8); ABS Neutrophils 3.9 10^3/ul (1.5-7.7); ABS Nucleated RBC 0 10^3/ul; Hematocrit 43 % (36-46); Hemoglobin 14.4 g/dL (14.0-18.0); Lymphocyte % 26.5 %; Mean Corpuscular HGB Conc 33 g/dL (31-36); Mean Corpuscular Hemoglobin 29 pg (27-31); Mean Corpuscular Volume 88 fL (80-94); Mean Platelet Volume 8.5 fL (7.4-10.4); Nucleated Red Blood Cells % 0; Platelet Count 145 10^3/uL (150-450); Red Blood Count 4.94 10^6 /uL (4.18-5.48); Red Cell Distribution Width 14 % (10.5-15); White Blood Count 6.2 10^3/uL (3.5-10.8)
[2019-01-28 06:03] LABS: Albumin 3.4 g/dL (3.2-5.2); Albumin/Globulin Ratio 1.2 (1-3); BUN/Creatinine Ratio 19.3 (8-20); Calcium 8.7 mg/dL (8.6-10.3); EGFR Non-African American 46.3 (>60); Globulin 2.9 g/dL (2-4); Potassium 4.2 mmol/L (3.5-5.0); Total Bilirubin 0.4 mg/dL (0.2-1.0); Total Protein 6.3 g/dL (6.4-8.9)
[2019-01-28] MEDS ORDERED: metFORMIN* 500 MG TAB PO SCH (08:00)
[2019-01-28] MEDS: Insulin LISPRO* 1 UNITS UNIT SUBCUT SCH ×4 (08:27→21:28)
[2019-01-28] MEDS: Memantine TAB* 5 MG PO SCH ×2 (08:29→21:27)
[2019-01-28] MEDS: Apixaban* 5 MG TAB PO SCH ×2 (08:29→21:27)
[2019-01-28] MEDS: Aspirin EC TAB* 81 MG TAB.EC PO SCH (08:29)
[2019-01-28] MEDS: Docusate CAP* 100 MG PO SCH ×2 (08:29→21:27)
--- NOTE | 2019-01-28 10:58 | PN ---
Progress Note Date of Service: 01/28/19 Note: JADYN Claudia RUIZ was visited. Nursing and therapy notes read and reviewed. No chest pain, shortness of breath or abdominal pain. Current Medications: Active Medications Generic Name Dose Route Start Last Admin Trade Name Freq PRN Reason Stop Dose Admin Acetaminophen 650 mg 01/27/19 16:04 Tylenol Tab* PO Q6H PRN FEVER/PAIN Apixaban 5 mg 01/27/19 21:00 01/28/19 08:29 Eliquis* PO 5 mg BID ALEC Administration Aspirin 81 mg 01/28/19 09:00 01/28/19 08:29 Aspirin Ec Tab* PO 81 mg DAILY ALEC Administration Atorvastatin Calcium 20 mg 01/27/19 17:00 01/27/19 17:14 Lipitor* PO 20 mg 1700 ALEC Administration Dextrose 12.5 gm 01/27/19 16:10 D50w Syringe 50 Ml* IV PUSH .FOR FS < 60 - SS PRN FS < 60 Docusate Sodium 100 mg 01/27/19 21:00 01/28/19 08:29 Colace Cap* PO 100 mg BID ALEC Administration Insulin Human Lispro 0 - 5 units 01/27/19 16:30 01/28/19 08:27 Humalog* SUBCUT Not Given [facility] Protocol Memantine 5 mg 01/27/19 21:00 01/28/19 08:29 Namenda Tab* PO 5 mg BID ALEC Administration Metformin HCl 500 mg 01/28/19 08:00 01/28/19 08:29 Glucophage* PO 500 mg 0800,1700 ALEC Administration Senna 2 tab 01/27/19 16:04 Senokot Tab* PO BEDTIME PRN CONSTIPATION Vital Signs: Vital Signs Temp Pulse Resp BP Pulse Ox 97.2 F 75 18 125/65 99 01/28/19 06:07 01/28/19 06:07 01/28/19 06:07 01/28/19 06:07 01/28/19 06:07 Lab Results: Laboratory Results - last 24 hr 01/27/19 01/27/19 01/28/19 16:32 20:40 05:03 WBC RBC Hgb Hct MCV MCH MCHC RDW Plt Count MPV Neut % (Auto) Lymph % (Auto) [place] % (Auto) Eos % (Auto) Baso % (Auto) Absolute Neuts (auto) Absolute Lymphs (auto) Absolute Monos (auto) Absolute Eos (auto) Absolute Basos (auto) Absolute Nucleated RBC Nucleated RBC % Sodium 139 Potassium 4.2 Chloride 109 Carbon Dioxide 24 Anion Gap 6 BUN 29 H Creatinine 1.50 H Est GFR ( Amer) 56.0 Est GFR (Non-Af Amer) 46.3 BUN/Creatinine Ratio 19.3 Glucose 124 H POC Glucose (mg/dL) 253 H 157 H Calcium 8.7 Total Bilirubin 0.40 AST 15 ALT 16 Alkaline Phosphatase 68 Total Protein 6.3 L Albumin 3.4 Globulin 2.9 Albumin/Globulin Ratio 1.2 01/28/19 01/28/19 05:08 08:14 WBC 6.2 RBC 4.94 Hgb 14.4 Hct 43 MCV 88 MCH 29 MCHC 33 RDW 14 Plt Count 145 L MPV 8.5 Neut % (Auto) 63.2 Lymph % (Auto) 26.5 [facility] % (Auto) 7.5 Eos % (Auto) 2.0 Baso % (Auto) 0.8 Absolute Neuts (auto) 3.9 Absolute Lymphs (auto) 1.6 Absolute Monos (auto) 0.5 Absolute Eos (auto) 0.1 Absolute Basos (auto) 0 Absolute Nucleated RBC 0 Nucleated RBC % 0 Sodium Potassium Chloride Carbon Dioxide Anion Gap BUN Creatinine Est GFR ( Amer) Est GFR (Non-Af Amer) BUN/Creatinine Ratio Glucose POC Glucose (mg/dL) 135 H Calcium Total Bilirubin AST ALT Alkaline Phosphatase Total Protein Albumin Globulin Albumin/Globulin Ratio Exam: GEN: no acute distress. alert and appropriate. LUNG: clear to auscultation bilaterally CV: regular rate and rhythm (h/o a.flutter) ABD: + bowel sounds, soft, non-tender, non-distended EXT: no edema NEURO: mild right facial droop and tongue deviation. RUE/RLE motor 4+/5. LUE/ LLE motor 5/5. Sensation intact x4 Assessment/Plan: 68yo man with left pontine stroke and new atrial flutter #CVA: lipitor, aspirin, eliquis, heart healthy diet caffeine ok, f/u with neuro as outpatient. PT/OT/speech #Atrial flutter: rate controlled. Eliquis. f/u with cardiology as outpatient #H/o hypertension: normotensive off losartan, but consider add back for renal benefit in diabetic at low dose #Diabetes mellitus: Concern of increased creatinine. d/c metformin and monitor labs. SSI. consider restart glyburide. #Mild dementia: namenda #DVT ppx: eliquis #Advanced directives: full code #Est LOS: IPOC today. 01/28/19 10:54
--- NOTE | 2019-01-28 12:54 | PMRUTEAM ---
PMRU: Team Meeting Current Status: Nursing: Current Status Skin Deviation Description [NO no issues skin issues] Physical Therapy: Current Status Bed Mobility Assistance supervision Transfer Mobility Assistance CGA Ambulation Assistance CGA 120ft Ambulation Assistive Devices Rolling Walker Stairs Assistance not tested Stairs Recommended Devices Two Rails Number of Stairs 12 Occupational Therapy: Current Status Upper Body Dressing Supervision Lower Body Dressing Contact Guard Assist Bathing Supervision Toileting Supervision Toilet Transfer Contact Guard Assist Eating Independent Instrumental ADL Pt reports he is able to play piano somewhat, but has not gained the strength and coordination to do so to his satisfaction. Speech therapy: impaired memory, word finding and cognition Social Work: Current Status Discharge Plan return home with home care svs and family support Potential for Family Training pt's is involved and attentive Anticipated Discharge Home Destination Discharge With home care svs and family support Goals: physical therapy: initial goals Modified independent bed mobility, transfers, ambulation 150ft and stairs. Occupational Therapy: Initial Goals Goals to be Completed in (Days 7-10 ) Upper Body Bathing Routine Independent Lower Body Bathing Routine Modified Independent with Upper Body Dressing Routine Independent Lower Body Dressing Routine Modified Independent with Toilet Hygeine and Clothing Modified Independent with Management Routine Toilet Transfer Routine Modified Independent with Tub Transfer Routine Modified Independent with Grooming Routine Modified Independent with Feeding Routine Independent Light Housekeeping Tasks Minimal Contact Assist Speech therapy: word-finding and memory strategies. dysarthria therapy for clarity. Social Work: Goals Discharge Plan return home with home care svs and family support Potential for Family Training pt's is involved and attentive Anticipated Discharge Home Destination Discharge With home care svs and family support Care Plan: Care Plan ADL's - Improve/Maintain Start: 01/28/19 00:17 Freq: DAILY Status: Active Target: Protocol: Activity Type Activity Date Activity User E-Sign Co-Sign Detail Recorded Client Recorded Date Recorded By Document 01/28/19 12:19 [id number] 01/28/19 12:24 [id number] 01/28/19 12:19 PMRU Outcome: ADL's/ADL Transfers Orders/Interventions Occupational Therapy Evaluation & Treatment Communication Tool in Patient Room Device Yes Address Deficits Secondary To: CVA Patient to receive OT 5x/wk for 60-120 Therex min/day Self Care Management Group Therapy Neuromuscular ReEducation UE/LE ADL's with Assist Yes: Annita ADL Transfers with Assist Yes: Annita Toileting: Transfers,Clothing Management Yes: Annita ,Hygeine w/Assist Light Kitchen/Laundry w/Assist Yes: Britt Progression Toward Outcome/Goals Progressing Outcome/Goals Met Pt is a 68 year old male s/p CVA with Right sided weakness/ deficits. Pt independent at baseline and reports playing piano locally. Pt reports his goal is to be able to return to playing piano. Pt currently with deficits in strength, balance, coordination, and decreased activity tolerance which limits independence with bathing, dressing, toileting, transfers as well as IADL tasks. Pt will benefit from skilled OT intervention to maximize independence and safety. DVT Prophylaxis- Improve/Maintain Start: 01/28/19 00:17 Freq: QSHIFT Status: Active Target: Protocol: Activity Type Activity Date Activity User E-Sign Co-Sign Detail Recorded Client Recorded Date Recorded By Document 01/28/19 03:41 [id number] 01/28/19 03:42 [id number] 01/28/19 03:41 PMRU Outcome: DVT Prophylaxis Outcome/Goals Remains Free of DVT Free of complications from current DVT Complies with DVT Prophylaxis /Treatment Demonstrates Knowledge of DVT Prevention/ Treatment TEDS Stockings on Every AM, Off at HS Discharge Planning - Improve/Maintain Start: 01/28/19 00:17 Freq: DAILY Status: Active Target: Protocol: Activity Type Activity Date Activity User E-Sign Co-Sign Detail Recorded Client Recorded Date Recorded By Document 01/28/19 03:41 [id number] 01/28/19 03:42 [id number] 01/28/19 03:41 PMRU Outcome: Discharge Planning Update Patient Family No Outcome/Goals Demonstrates Understanding of Discharge Plan /GI-Improve/Maintain Start: 01/28/19 00:17 Freq: QSHIFT Status: Active Target: Protocol: Activity Type Activity Date Activity User E-Sign Co-Sign Detail Recorded Client Recorded Date Recorded By Document 01/28/19 03:41 [id number] 01/28/19 03:42 [id number] 01/28/19 03:41 PMRU Outcome: Genitourinary/ Gastrointestinal Genitourinary- Outcome/Goals Maintain/ Achieve Urinary Continence Maintain/ Achieve Adequate Urinary Output Gastrointestinal-Outcome/Goals Prevent Constipation Metabolic Status- Improve/Maintain Start: 01/28/19 00:17 Freq: QSHIFT Status: Active Target: Protocol: Activity Type Activity Date Activity User E-Sign Co-Sign Detail Recorded Client Recorded Date Recorded By Document 01/28/19 03:41 [id number] 01/28/19 03:42 [id number] 01/28/19 03:41 PMRU Outcome: Metabolic Status Have Fingersticks Been Ordered Yes Fingerstick Order Frequency AC & HS Outcome/Goals Maintain/ Improve Metabolic Status Demonstrate Knowledge of Prevention/ Treatment of Metabolic Imbalances Neurological- Improve/Maintain Start: 01/28/19 00:17 Freq: QSHIFT Status: Active Target: Protocol: Activity Type Activity Date Activity User E-Sign Co-Sign Detail Recorded Client Recorded Date Recorded By Document 01/28/19 03:41 [id number] 01/28/19 03:42 [id number] 01/28/19 03:41 PMRU Outcome: Neurological Weakness/Aphasia Weakness Right Side Outcome/Goals Maintain/ Achieve Baseline Neurological Status Improve Neurological Status Maintain/ Improve Strength/ROM Safety- Improve/Maintain Start: 01/28/19 00:17 Freq: QSHIFT Status: Active Target: Protocol: Activity Type Activity Date Activity User E-Sign Co-Sign Detail Recorded Client Recorded Date Recorded By Document 01/28/19 03:41 [id number] 01/28/19 03:42 [id number] 01/28/19 03:41 PMRU Outcome: Safety Outcome/Goals Remain Free of Injury or Harm Cooperates with Safety Measures for Least Restrictive Environment Prevent Falls/ Injury Outcome/Goals Met Comment BA armed Medicine Note: Length of Stay: [6 days] Anticipated Discharge Destination: Home Tentative Discharge Date: [02/03/19] Discharged to: [home]
[2019-01-28] MEDS: Atorvastatin* 20 MG TAB PO SCH (17:41)
[2019-01-29] MEDS: Insulin LISPRO* 1 UNITS UNIT SUBCUT SCH ×4 (08:45→20:54)
[2019-01-29] MEDS: Apixaban* 5 MG TAB PO SCH ×2 (10:24→20:50)
[2019-01-29] MEDS: Aspirin EC TAB* 81 MG TAB.EC PO SCH (10:24)
[2019-01-29] MEDS: Docusate CAP* 100 MG PO SCH ×2 (10:25→20:51)
[2019-01-29] MEDS: Memantine TAB* 5 MG PO SCH ×2 (10:25→20:51)
--- NOTE | 2019-01-29 10:58 | PN ---
Progress Note Date of Service: 01/29/19 Note: JADYN RUIZ was visited. Nursing and therapy notes read and reviewed. No chest pain, shortness of breath or abdominal pain. Pleased with his progress. Current Medications: Active Medications Generic Name Dose Route Start Last Admin Trade Name Mahad PRN Reason Stop Dose Admin Acetaminophen 650 mg 01/27/19 16:04 Tylenol Tab* PO Q6H PRN FEVER/PAIN Apixaban 5 mg 01/27/19 21:00 01/29/19 10:24 Eliquis* PO 5 mg BID ALEC Administration Aspirin 81 mg 01/28/19 09:00 01/29/19 10:24 Aspirin Ec Tab* PO 81 mg DAILY ALEC Administration Atorvastatin Calcium 20 mg 01/27/19 17:00 01/28/19 17:41 Lipitor* PO 20 mg 1700 ALEC Administration Dextrose 12.5 gm 01/27/19 16:10 D50w Syringe 50 Ml* IV PUSH .FOR FS < 60 - SS PRN FS < 60 Docusate Sodium 100 mg 01/27/19 21:00 01/29/19 10:25 Colace Cap* PO 100 mg BID ALEC Administration Insulin Human Lispro 0 - 5 units 01/27/19 16:30 01/29/19 08:45 Humalog* SUBCUT Not Given [facility] Protocol Memantine 5 mg 01/27/19 21:00 01/29/19 10:25 Namenda Tab* PO 5 mg BID ALEC Administration Senna 2 tab 01/27/19 16:04 Senokot Tab* PO BEDTIME PRN CONSTIPATION Vital Signs: Vital Signs Temp Pulse Resp BP Pulse Ox 97.3 F 74 16 113/72 100 01/29/19 05:07 01/29/19 05:07 01/29/19 05:07 01/29/19 05:07 01/29/19 05:07 Lab Results: Laboratory Results - last 24 hr 01/28/19 01/28/19 01/28/19 12:15 16:31 20:59 POC Glucose (mg/dL) 150 H 169 H 231 H Exam: GEN: no acute distress. alert and appropriate. LUNGS: clear to auscultation bilaterally CV: regular rate and rhythm (h/o a.flutter) ABD: + bowel sounds, soft, non-tender, non-distended EXT: no edema NEURO: mild right facial droop. RUE/RLE motor 4+/5. LUE/LLE motor 5/5. Sensation intact x4 Assessment/Plan: 68yo man with left pontine stroke and new atrial flutter #CVA: lipitor, aspirin, eliquis, heart healthy diet decaf ok, f/u with neuro as outpatient. PT/OT/speech #Atrial flutter: rate controlled. Eliquis. f/u with cardiology as outpatient #H/o hypertension: normotensive off losartan, but consider add back for renal benefit in diabetic at low dose #Diabetes mellitus: Concern of increased creatinine. d/c'd metformin. SSI. Start glyburide 2.5mg qday (start today. home dose was tid with meals). Recheck P3 Thursday. #Mild dementia: namenda #DVT ppx: eliquis #Advanced directives: full code #Est LOS: anticipate d/c on 02/03. 01/29/19 10:55
[2019-01-29] MEDS: glyBURIDE TAB* 2.5 MG PO SCH (12:02)
[2019-01-29] MEDS: Atorvastatin* 20 MG TAB PO SCH (17:12)
[2019-01-30] MEDS: Insulin LISPRO* 1 UNITS UNIT SUBCUT SCH ×4 (09:08→21:10)
[2019-01-30] MEDS: Docusate CAP* 100 MG PO SCH ×2 (09:36→19:52)
[2019-01-30] MEDS: Aspirin EC TAB* 81 MG TAB.EC PO SCH (09:36)
[2019-01-30] MEDS: Memantine TAB* 5 MG PO SCH ×2 (09:36→19:49)
[2019-01-30] MEDS: glyBURIDE TAB* 2.5 MG PO SCH (09:36)
[2019-01-30] MEDS: Apixaban* 5 MG TAB PO SCH ×2 (09:37→19:49)
--- NOTE | 2019-01-30 09:49 | PN ---
Progress Note Date of Service: 01/30/19 Note: JADYN RUIZ was visited. Nursing and therapy notes read and reviewed. No chest pain, shortness of breath or abdominal pain. His brought in a electric keyboard for him to practice fingering. Current Medications: Active Medications Generic Name Dose Route Start Last Admin Trade Name Freteja PRN Reason Stop Dose Admin Acetaminophen 650 mg 01/27/19 16:04 Tylenol Tab* PO Q6H PRN FEVER/PAIN Apixaban 5 mg 01/27/19 21:00 01/30/19 09:37 Eliquis* PO 5 mg BID ALEC Administration Aspirin 81 mg 01/28/19 09:00 01/30/19 09:36 Aspirin Ec Tab* PO 81 mg DAILY ALEC Administration Atorvastatin Calcium 20 mg 01/27/19 17:00 01/29/19 17:12 Lipitor* PO 20 mg 1700 ALEC Administration Dextrose 12.5 gm 01/27/19 16:10 D50w Syringe 50 Ml* IV PUSH .FOR FS < 60 - SS PRN FS < 60 Docusate Sodium 100 mg 01/27/19 21:00 01/30/19 09:36 Colace Cap* PO 100 mg BID ALEC Administration Glyburide 2.5 mg 01/29/19 12:00 01/30/19 09:36 Diabeta Tab* PO 2.5 mg DAILY WITH MEAL ALEC Administration Insulin Human Lispro 0 - 5 units 01/27/19 16:30 01/30/19 09:08 Humalog* SUBCUT Not Given [facility] Protocol Memantine 5 mg 01/27/19 21:00 01/30/19 09:36 Namenda Tab* PO 5 mg BID ALEC Administration Senna 2 tab 01/27/19 16:04 Senokot Tab* PO BEDTIME PRN CONSTIPATION Vital Signs: Vital Signs Temp Pulse Resp BP Pulse Ox 97.6 F 74 16 136/72 100 01/30/19 05:31 01/30/19 05:31 01/30/19 05:31 01/30/19 06:00 01/30/19 05:31 Lab Results: Laboratory Results - last 24 hr 01/29/19 01/29/19 01/29/19 07:50 12:02 16:34 POC Glucose (mg/dL) 137 H 191 H 82 01/29/19 01/30/19 20:50 08:04 POC Glucose (mg/dL) 132 H 111 H Exam: GEN: no acute distress. alert and appropriate. LUNGS: clear to auscultation bilaterally CV: regular rate and rhythm (h/o a.flutter) ABD: + bowel sounds, soft, non-tender, non-distended EXT: no edema NEURO: mild right facial droop. RUE/RLE motor 4+/5. LUE/LLE motor 5/5. Sensation intact x4 Assessment/Plan: 68yo man with left pontine stroke and new atrial flutter #CVA: lipitor, aspirin, eliquis, heart healthy diet decaf ok, f/u with neuro as outpatient. PT/OT/speech #Atrial flutter: rate controlled. Eliquis. f/u with cardiology as outpatient #H/o hypertension: normotensive off losartan, but consider add back for renal benefit in diabetic at low dose #Diabetes mellitus: Concern of increased creatinine. d/c'd metformin. SSI. Started glyburide 2.5mg qday on 01/29 (home dose was tid with meals). Recheck P3 Thursday. #Mild dementia: namenda #DVT ppx: eliquis #Advanced directives: full code #Est LOS: anticipate d/c on 02/03. 01/30/19 09:48
[2019-01-30] MEDS: Atorvastatin* 20 MG TAB PO SCH (17:47)
[2019-01-31 05:38] LABS: BUN/Creatinine Ratio 18.4 (8-20); Calcium 8.6 mg/dL (8.6-10.3); EGFR African American 57.3 (>60); EGFR Non-African American 47.4 (>60); Potassium 4.1 mmol/L (3.5-5.0)
[2019-01-31] MEDS: Insulin LISPRO* 1 UNITS UNIT SUBCUT SCH ×4 (07:45→21:26)
[2019-01-31] MEDS: glyBURIDE TAB* 2.5 MG PO SCH (09:51)
[2019-01-31] MEDS: Apixaban* 5 MG TAB PO SCH ×2 (09:51→19:53)
[2019-01-31] MEDS: Docusate CAP* 100 MG PO SCH ×2 (09:51→19:53)
[2019-01-31] MEDS: Memantine TAB* 5 MG PO SCH ×2 (09:51→19:53)
[2019-01-31] MEDS: Aspirin EC TAB* 81 MG TAB.EC PO SCH (09:51)
[2019-01-31] MEDS: Atorvastatin* 20 MG TAB PO SCH (17:09)
--- NOTE | 2019-01-31 18:46 | PN ---
Progress Note Date of Service: 01/31/19 Note: JADYN RUIZ was visited. Therapy notes read and reviewed. He feels like he is doing well with mobility and his hand is moving better. Blood sugars can be high Current Medications: Active Medications Generic Name Dose Route Start Last Admin Trade Name Mahad PRN Reason Stop Dose Admin Acetaminophen 650 mg 01/27/19 16:04 Tylenol Tab* PO Q6H PRN FEVER/PAIN Apixaban 5 mg 01/27/19 21:00 01/31/19 09:51 Eliquis* PO 5 mg BID ALEC Administration Aspirin 81 mg 01/28/19 09:00 01/31/19 09:51 Aspirin Ec Tab* PO 81 mg DAILY ALEC Administration Atorvastatin Calcium 20 mg 01/27/19 17:00 01/31/19 17:09 Lipitor* PO 20 mg 1700 ALEC Administration Dextrose 12.5 gm 01/27/19 16:10 D50w Syringe 50 Ml* IV PUSH .FOR FS < 60 - SS PRN FS < 60 Docusate Sodium 100 mg 01/27/19 21:00 01/31/19 09:51 Colace Cap* PO 100 mg BID ALEC Administration Glyburide 2.5 mg 01/29/19 12:00 01/31/19 09:51 Diabeta Tab* PO 2.5 mg DAILY WITH MEAL ALEC Administration Insulin Human Lispro 0 - 5 units 01/27/19 16:30 01/31/19 16:49 Humalog* SUBCUT Not Given [facility] Protocol Memantine 5 mg 01/27/19 21:00 01/31/19 09:51 Namenda Tab* PO 5 mg BID ALEC Administration Senna 2 tab 01/27/19 16:04 Senokot Tab* PO BEDTIME PRN CONSTIPATION Vital Signs: Vital Signs Temp Pulse Resp BP Pulse Ox 97.3 F 77 20 122/74 100 01/31/19 16:20 01/31/19 16:20 01/31/19 16:20 01/31/19 16:20 01/31/19 16:20 Lab Results: Laboratory Results - last 24 hr 01/30/19 01/31/19 01/31/19 21:06 05:08 11:58 Sodium 138 Potassium 4.1 Chloride 107 Carbon Dioxide 25 Anion Gap 6 BUN 27 H Creatinine 1.47 H Est GFR ( Amer) 57.3 Est GFR (Non-Af Amer) 47.4 BUN/Creatinine Ratio 18.4 Glucose 99 POC Glucose (mg/dL) 157 H 301 H Calcium 8.6 01/31/19 16:28 Sodium Potassium Chloride Carbon Dioxide Anion Gap BUN Creatinine Est GFR ( Amer) Est GFR (Non-Af Amer) BUN/Creatinine Ratio Glucose POC Glucose (mg/dL) 118 H Calcium Exam: GENERAL: no acute distress. alert and appropriate. LUNGS: clear to auscultation bilaterally HEART: regular rate and rhythm (h/o a.flutter) ABDOMEN: + bowel sounds, soft, non-tender, non-distended EXTREMITIES: no edema NEUROLOGIC: mild right facial droop. RUE/RLE motor 4+/5. LUE/LLE motor 5/5. Sensation intact x4 Assessment/Plan: 68yo man with left pontine stroke and new atrial flutter 1. Left pontine CVA: lipitor, aspirin, eliquis, heart healthy diet decaf ok, f/ u with neuro as outpatient. PT/OT/speech 2. Atrial flutter: rate controlled. Eliquis. f/u with cardiology as outpatient 3. H/o hypertension: normotensive off losartan, but consider add back for renal benefit in diabetic at low dose 4. Diabetes mellitus: Concern of increased creatinine. d/c'd metformin. SSI. Started glyburide 2.5mg qday, will increase to BID. 5. Mild dementia: namenda 6. DVT prophylaxis: eliquis 7. Advanced directives: full code 8. Est LOS: anticipate d/c on 02/03. 01/31/19 18:49
[2019-02-01] MEDS: glyBURIDE TAB* 2.5 MG PO SCH ×2 (07:42→17:21)
[2019-02-01] MEDS: Insulin LISPRO* 1 UNITS UNIT SUBCUT SCH ×4 (07:42→21:12)
[2019-02-01] MEDS: Apixaban* 5 MG TAB PO SCH ×2 (10:05→20:24)
[2019-02-01] MEDS: Docusate CAP* 100 MG PO SCH ×2 (10:05→20:30)
[2019-02-01] MEDS: Memantine TAB* 5 MG PO SCH ×2 (10:05→20:25)
[2019-02-01] MEDS: Aspirin EC TAB* 81 MG TAB.EC PO SCH (10:05)
--- NOTE | 2019-02-01 12:49 | PMRUTEAM ---
PMRU: Team Meeting Current Status: Nursing: Current Status Skin Deviations [NO skin Other issues] Skin Deviation Description [NO no issues skin issues] Bladder Current Status pt ambulates to br with walker, gb, 1 assist voids adequate amount Bowel Current Status pt ambulates to br with walker, gb, 1 assist last bowel mvmt 01/31/19 pt takes bowel meds as appropriate Nutrition Current Status manages meals independently good appetite Medication Current Status pt takes medications as prescribed pt verbalizes understanding of interventions Physical Therapy: Current Status Bed Mobility Assistance Supervision Transfer Mobility Assistance Contact Guard Assist Transfer/Bed Mobility Rolling Walker Recommended Devices Ambulation Assistance Contact Guard Assist Ambulation Assistive Devices Rolling Walker Number of Feet Patient 150x2 Ambulated Stairs Assistance Contact Guard Assist Stairs Recommended Devices Two Rails Number of Stairs 2x3 Occupational Therapy: Current Status Upper Body Dressing Supervision Lower Body Dressing Supervision Lower Body Dressing Progress With cues to use his walker Bathing Supervision Toileting Supervision Toilet Transfer Supervision Shower Transfer Supervision Eating Independent Instrumental ADL Pt reports he is able to play piano somewhat, but has not gained the strength and coordination to do so to his satisfaction. Rec Therapy: Current Status Summary of Assessment and Recreation Therapy services introduced and Clinical Impression assessment is complete. Pt. has been social and interactive during leisure visits. Treatment Goals Pt. will engage in leisure activities while on the unit. Treatment Plan Provide recreation therapy and encourage involvement. Social Work: Current Status Discharge Plan return home with home care svs and family support Potential for Family Training pt's is involved and supportive Anticipated Discharge Home Destination Discharge With home care svs and family support Nutrition: Current Status Monitoring Adm to rehab post CVA. No swallowing deficits and eating well (75-100%)/meeting needs. Adjustments in oral diabetes meds due to rising Cr. Glycemic control variable (301 - 118 - 157) and MD continuing to adjust meds accordingly. ? if lipitor is new med for pt - if so will follow up with food/drug education. Speech: Current Status Assessment Pt progressing as expected Goals: Physical Therapy: Initial Goals Bed Mobility Assistance Independent Transfer Mobility Assistance Independent Transfer/Bed Mobility Rolling Walker Recommended Devices Ambulation Independent Ambulation Recommended Devices Rolling Walker Ambulation Distance 150 Stairs Assistance Independent Stair Recommended Devices Two Rails Number of Stairs 12 Physical Therapy: Updated Goals Transfer/Bed Mobility Rolling Walker Recommended Devices Occupational Therapy: Initial Goals Goals to be Completed in (Days 7-10 ) Upper Body Bathing Routine Independent Lower Body Bathing Routine Modified Independent with Upper Body Dressing Routine Independent Lower Body Dressing Routine Modified Independent with Toilet Hygeine and Clothing Modified Independent with Management Routine Toilet Transfer Routine Modified Independent with Tub Transfer Routine Modified Independent with Grooming Routine Modified Independent with Feeding Routine Independent Light Housekeeping Tasks Minimal Contact Assist Nursing: Goals Bladder Goal independently manage toileting Bowel Goal independently manage toileting Nutrition Goal maintain adequate nutritional intake Medication Goal maintain medicine schedule independently Nutrition: Goals Intervention Goals 1. Adequate glycemic control per inpatient parameters. 2. Maintain adequate oral intake to support maintenance of lean body mass. 3. Pt able to verbalize lipitor/grapefruit interaction eating guidelines. Speech: Goals Speech Goal 1 Motor-speech Speech Evaluation Status Goal Mild 1 Goal 1 Comments Motor-speech Long-Term Goal: Pt will I'ly speak with 100% intelligibility, Independently Short-Term Goal 1: Pt will use compensatory strategies to increase speech intelligibility to 95% in spontaneous conversational speech, given minimal cueing. Short-Term Goal 2: Pt will Independently complete orofacial exercises to strengthen Right side weakness and achieve symmetrical function for eating, speach and expression. Status: Progressing as expected ST assessed speech intelligibility with use of speaking compensatory strategies during structured conversational task in order to promote carryover and increase intelligibility. Pt about 90% intelligible requiring moderate verbal cues to utilize speaking strategies. Speech Goal 2 Language Expression Goals: Speech Goal 2 Evaluation Mild-moderate Status Speech Goal 2 Comments Language Expression Goals: Long-Term Goal: Pt will use conversational repair strategies to cooperatively find words in structured conversation, 100% accuracy, given extra time, Independently. Short-Term Goal: Pt will use conversational repair strategies to cooperatively find words in structured language activities, 75% accuracy, given Moderate skilled instruction and cueing. Speech Goal 3 Memory Speech Goal 3 Comments Memory Goals: Long-Term Goal: Pt will use compensatory strategies to encode and retrieve 5/5 new items after delay of 30 minutes, Independently, for independence in mobility safety, ADLs and community access. Short-term Goal: Pt will use compensatory strategies to encode and retrieve 3/4 new items after delay of 5 minutes, given Moderate skilled instruction and cueing. Short-term Goal: Further assessment of memory, attention and problem solving Status: Progressing as expected Further assessment: the Julien Cognitive Assessment (MoCA) Fani. 7.1 was administered. The patient scored 24/30, indicating a severity rating of mild cognitive impairment. Subscores for task domains: Visuospatial/executive: 5/5 Namin/3 Attention: 6/6 Language: 1/3 Abstraction: 2/2 Delayed recall: 2/5 Orientation: 5/6 Social Work: Goals Discharge Plan return home with home care svs and family support Potential for Family Training pt's is involved and supportive Anticipated Discharge Home Destination Discharge With home care svs and family support Care Plan: Care Plan ADL's - Improve/Maintain Start: 01/28/19 00:17 Freq: DAILY Status: Active Target: Protocol: Activity Type Activity Date Activity User E-Sign Co-Sign Detail Recorded Client Recorded Date Recorded By Document 02/01/19 11:40 [id number] 02/01/19 11:40 [id number] 02/01/19 11:40 PMRU Outcome: ADL's/ADL Transfers Orders/Interventions Occupational Therapy Evaluation & Treatment Communication Tool in Patient Room Device Yes Address Deficits Secondary To: CVA Patient to receive OT 5x/wk for 60-120 Therex min/day Self Care Management Group Therapy Neuromuscular ReEducation UE/LE ADL's with Assist Yes: Annita ADL Transfers with Assist Yes: Annita Toileting: Transfers,Clothing Management Yes: Annita ,Hygeine w/Assist Light Kitchen/Laundry w/Assist Yes: Britt Progression Toward Outcome/Goals Progressing Outcome/Goals Met Pt improving FM strength and coordination. He continues to try to stand without his walker and GB. DVT Prophylaxis- Improve/Maintain Start: 01/28/19 00:17 Freq: QSHIFT Status: Active Target: Protocol: Activity Type Activity Date Activity User E-Sign Co-Sign Detail Recorded Client Recorded Date Recorded By Document 02/01/19 08:00 [id number] 02/01/19 10:19 [id number] 02/01/19 08:00 PMRU Outcome: DVT Prophylaxis Outcome/Goals Remains Free of DVT Free of complications from current DVT Demonstrates Knowledge of DVT Prevention/ Treatment Progression Toward Outcome/Goals Progressing Discharge Planning - Improve/Maintain Start: 01/28/19 00:17 Freq: DAILY Status: Active Target: Protocol: Activity Type Activity Date Activity User E-Sign Co-Sign Detail Recorded Client Recorded Date Recorded By Document 02/01/19 01:21 [id number] 02/01/19 01:21 [id number] 02/01/19 01:21 PMRU Outcome: Discharge Planning Update Patient Family No Outcome/Goals Demonstrates Understanding of Discharge Plan Progression Toward Outcome/Goals Progressing /GI-Improve/Maintain Start: 01/28/19 00:17 Freq: QSHIFT Status: Active Target: Protocol: Activity Type Activity Date Activity User E-Sign Co-Sign Detail Recorded Client Recorded Date Recorded By Document 02/01/19 08:00 [id number] 02/01/19 10:19 [id number] 02/01/19 08:00 PMRU Outcome: Genitourinary/ Gastrointestinal Genitourinary- Outcome/Goals Maintain/ Achieve Urinary Continence Maintain/ Achieve Adequate Urinary Output Remain Free of Hospital- Acquired UTI Gastrointestinal-Outcome/Goals Maintain/ Achieve Bowel Regularity in Accordance with Pt's Baseline Remain Free of Emesis Prevent Constipation Bowel Regularity at Home Progression Toward Outcome/Goals - Progressing Progression Toward Outcome/Goals - GI Progressing Metabolic Status- Improve/Maintain Start: 01/28/19 00:17 Freq: QSHIFT Status: Active Target: Protocol: Activity Type Activity Date Activity User E-Sign Co-Sign Detail Recorded Client Recorded Date Recorded By Document 02/01/19 08:00 [id number] 02/01/19 10:19 [id number] 02/01/19 08:00 PMRU Outcome: Metabolic Status Have Fingersticks Been Ordered Yes Fingerstick Order Frequency AC & HS Outcome/Goals Maintain/ Improve Metabolic Status Demonstrate Knowledge of Prevention/ Treatment of Metabolic Imbalances Progression Toward Outcome/Goals Progressing Neurological- Improve/Maintain Start: 01/28/19 00:17 Freq: QSHIFT Status: Active Target: Protocol: Activity Type Activity Date Activity User E-Sign Co-Sign Detail Recorded Client Recorded Date Recorded By Document 02/01/19 08:00 [id number] 02/01/19 10:19 [id number] 02/01/19 08:00 PMRU Outcome: Neurological Weakness/Aphasia Weakness Right Side Outcome/Goals Maintain/ Achieve Baseline Neurological Status Improve Neurological Status Prevent Avoidable Neurological Decline Progression Toward Outcome/Goals Progressing Safety- Improve/Maintain Start: 01/28/19 00:17 Freq: QSHIFT Status: Active Target: Protocol: Activity Type Activity Date Activity User E-Sign Co-Sign Detail Recorded Client Recorded Date Recorded By Document 02/01/19 08:00 [id number] 02/01/19 10:19 [id number] 02/01/19 08:00 PMRU Outcome: Safety Outcome/Goals Remain Free of Injury or Harm Cooperates with Safety Measures for Least Restrictive Environment Prevent Falls/ Injury Equipment Needed Progression Toward Outcome/Goals Progressing Outcome/Goals Met Comment pa in place Medicine Note: Length of Stay: 3 days Anticipated Discharge Destination: Home Tentative Discharge Date: 02/04/19 Discharged to: Home
[2019-02-01] MEDS: Atorvastatin* 20 MG TAB PO SCH (17:21)
--- NOTE | 2019-02-01 17:43 | PN ---
Progress Note Date of Service: 02/01/19 Note: JADYN RUIZ was visited. Therapy notes read and reviewed. He was discussed in interdisciplinary team rounds. He is supposed to go home on Thursday but therapists have some safety concerns Current Medications: Active Medications Generic Name Dose Route Start Last Admin Trade Name Mahad PRN Reason Stop Dose Admin Acetaminophen 650 mg 01/27/19 16:04 Tylenol Tab* PO Q6H PRN FEVER/PAIN Apixaban 5 mg 01/27/19 21:00 02/01/19 10:05 Eliquis* PO 5 mg BID ALEC Administration Aspirin 81 mg 01/28/19 09:00 02/01/19 10:05 Aspirin Ec Tab* PO 81 mg DAILY ALEC Administration Atorvastatin Calcium 20 mg 01/27/19 17:00 02/01/19 17:21 Lipitor* PO 20 mg 1700 ALEC Administration Dextrose 12.5 gm 01/27/19 16:10 D50w Syringe 50 Ml* IV PUSH .FOR FS < 60 - SS PRN FS < 60 Docusate Sodium 100 mg 01/27/19 21:00 02/01/19 10:05 Colace Cap* PO 100 mg BID ALEC Administration Glyburide 2.5 mg 02/01/19 08:00 02/01/19 17:21 Diabeta Tab* PO 2.5 mg 0800,1700 ALEC Administration Insulin Human Lispro 0 - 10 units 01/31/19 21:00 02/01/19 17:21 Humalog* SUBCUT 4 units ACHS ALEC Administration Protocol Memantine 5 mg 01/27/19 21:00 02/01/19 10:05 Namenda Tab* PO 5 mg BID ALEC Administration Senna 2 tab 01/27/19 16:04 Senokot Tab* PO BEDTIME PRN CONSTIPATION Vital Signs: Vital Signs Temp Pulse Resp BP Pulse Ox 98.1 F 78 16 133/80 98 02/01/19 16:07 02/01/19 16:07 02/01/19 16:07 02/01/19 16:07 02/01/19 16:07 Lab Results: Laboratory Results - last 24 hr 01/31/19 02/01/19 02/01/19 21:03 07:41 11:53 POC Glucose (mg/dL) 157 H 103 H 183 H Exam: GENERAL: no acute distress. alert and appropriate. LUNGS: clear to auscultation bilaterally HEART: regular rate and rhythm (h/o a.flutter) ABDOMEN: + bowel sounds, soft, non-tender, non-distended EXTREMITIES: no edema NEUROLOGIC: mild right facial droop. RUE/RLE motor 4+/5. LUE/LLE motor 5/5. Sensation intact x4 Assessment/Plan: 68yo man with left pontine stroke and new atrial flutter 1. Left pontine CVA: lipitor, aspirin, eliquis, heart healthy diet decaf ok, f/ u with neuro as outpatient. PT/OT/speech 2. Atrial flutter: rate controlled. Eliquis. f/u with cardiology as outpatient 3. H/o hypertension: normotensive off losartan, but consider add back for renal benefit in diabetic at low dose 4. Diabetes mellitus: Concern of increased creatinine. d/c'd metformin. SSI. glyburide 2.5mg BID. 5. Mild dementia: namenda 6. DVT prophylaxis: eliquis 7. Advanced directives: full code 8. Est LOS: anticipate d/c on 02/03. 9. CKD: Check BUN/Cr in am 02/01/19 17:43 02/01/19 17:47
[2019-02-02 07:24] LABS: BUN/Creatinine Ratio 20.3 (8-20); Calcium 8.8 mg/dL (8.6-10.3); EGFR African American 64.3 (>60); EGFR Non-African American 53.2 (>60); Potassium 4.1 mmol/L (3.5-5.0)
[2019-02-02] MEDS: Insulin LISPRO* 1 UNITS UNIT SUBCUT SCH ×4 (07:59→21:31)
[2019-02-02] MEDS: glyBURIDE TAB* 2.5 MG PO SCH ×2 (10:04→16:24)
[2019-02-02] MEDS: Docusate CAP* 100 MG PO SCH ×2 (10:04→20:43)
[2019-02-02] MEDS: Aspirin EC TAB* 81 MG TAB.EC PO SCH (10:04)
[2019-02-02] MEDS: Apixaban* 5 MG TAB PO SCH ×2 (10:04→20:42)
[2019-02-02] MEDS: Memantine TAB* 5 MG PO SCH ×2 (10:04→20:46)
[2019-02-02] MEDS: Atorvastatin* 20 MG TAB PO SCH (16:24)
--- NOTE | 2019-02-02 19:58 | PN ---
Progress Note Date of Service: 02/02/19 Note: JADYN RUIZ was visited. Therapy notes read and reviewed. He has no complaints and feel like he is rehabbing well. Cr a little better but remains high. BS a little high Current Medications: Active Medications Generic Name Dose Route Start Last Admin Trade Name Mahad PRN Reason Stop Dose Admin Acetaminophen 650 mg 01/27/19 16:04 Tylenol Tab* PO Q6H PRN FEVER/PAIN Apixaban 5 mg 01/27/19 21:00 02/02/19 10:04 Eliquis* PO 5 mg BID ALEC Administration Aspirin 81 mg 01/28/19 09:00 02/02/19 10:04 Aspirin Ec Tab* PO 81 mg DAILY ALEC Administration Atorvastatin Calcium 20 mg 01/27/19 17:00 02/02/19 16:24 Lipitor* PO 20 mg 1700 ALEC Administration Dextrose 12.5 gm 01/27/19 16:10 D50w Syringe 50 Ml* IV PUSH .FOR FS < 60 - SS PRN FS < 60 Docusate Sodium 100 mg 01/27/19 21:00 02/02/19 10:04 Colace Cap* PO 100 mg BID ALEC Administration Glyburide 2.5 mg 02/01/19 08:00 02/02/19 16:24 Diabeta Tab* PO 2.5 mg 0800,1700 ALEC Administration Insulin Human Lispro 0 - 10 units 01/31/19 21:00 02/02/19 17:05 Humalog* SUBCUT 2 units ACHS ALEC Administration Protocol Memantine 5 mg 01/27/19 21:00 02/02/19 10:04 Namenda Tab* PO 5 mg BID ALEC Administration Senna 2 tab 01/27/19 16:04 Senokot Tab* PO BEDTIME PRN CONSTIPATION Vital Signs: Vital Signs Temp Pulse Resp BP Pulse Ox 98.2 F 74 16 109/59 99 02/02/19 16:00 02/02/19 16:00 02/02/19 16:00 02/02/19 16:00 02/02/19 16:12 Lab Results: Laboratory Results - last 24 hr 02/01/19 02/01/19 02/02/19 16:32 20:27 06:29 Sodium 139 Potassium 4.1 Chloride 107 Carbon Dioxide 25 Anion Gap 7 BUN 27 H Creatinine 1.33 H Est GFR ( Amer) 64.3 Est GFR (Non-Af Amer) 53.2 BUN/Creatinine Ratio 20.3 H Glucose 73 POC Glucose (mg/dL) 213 H 142 H Calcium 8.8 02/02/19 02/02/19 02/02/19 07:48 12:12 16:27 Sodium Potassium Chloride Carbon Dioxide Anion Gap BUN Creatinine Est GFR ( Amer) Est GFR (Non-Af Amer) BUN/Creatinine Ratio Glucose POC Glucose (mg/dL) 88 314 H 157 H Calcium Exam: GENERAL: no acute distress. alert and appropriate. LUNGS: clear to auscultation bilaterally HEART: regular rate and rhythm (h/o a.flutter) ABDOMEN: + bowel sounds, soft, non-tender, non-distended EXTREMITIES: no edema NEUROLOGIC: mild right facial droop. RUE/RLE motor 4+/5. LUE/LLE motor 5/5. Sensation intact x4 Assessment/Plan: 68yo man with left pontine stroke and new atrial flutter 1. Left pontine CVA: lipitor, aspirin, eliquis, heart healthy diet decaf ok, f/ u with neuro as outpatient. PT/OT/speech 2. Atrial flutter: rate controlled. Eliquis. f/u with cardiology as outpatient 3. H/o hypertension: normotensive off losartan, but consider add back for renal benefit in diabetic at low dose 4. Diabetes mellitus: Concern of increased creatinine. d/c'd metformin. SSI. glyburide 2.5mg BID, will increase to TID. 5. Mild dementia: namenda 6. DVT prophylaxis: eliquis 7. Advanced directives: full code 8. Est LOS: anticipate d/c on 02/03. 9. CKD: Cr 1.33 02/02/19 19:59
[2019-02-02] MEDS: Acetaminophen TAB* 325 MG PO PRN (21:48)
[2019-02-03] MEDS: Insulin LISPRO* 1 UNITS UNIT SUBCUT SCH ×4 (07:27→20:52)
[2019-02-03] MEDS: Memantine TAB* 5 MG PO SCH ×2 (08:57→20:50)
[2019-02-03] MEDS: Docusate CAP* 100 MG PO SCH ×2 (08:57→20:50)
[2019-02-03] MEDS: glyBURIDE TAB* 2.5 MG PO SCH ×3 (08:57→17:03)
[2019-02-03] MEDS: Aspirin EC TAB* 81 MG TAB.EC PO SCH (08:57)
[2019-02-03] MEDS: Apixaban* 5 MG TAB PO SCH ×2 (08:57→20:50)
[2019-02-03] MEDS: Atorvastatin* 20 MG TAB PO SCH (17:03)
[2019-02-03] MEDS: Acetaminophen TAB* 325 MG PO PRN (17:04)
--- NOTE | 2019-02-03 18:28 | PN ---
Progress Note Date of Service: 02/03/19 Note: JADYN Claudia RUIZ was visited. Therapy notes read and reviewed. For discharge in am. He feels good. His blood sugars are a little high off Metformin. Will add Lantus once a day. Current Medications: Active Medications Generic Name Dose Route Start Last Admin Trade Name Freq PRN Reason Stop Dose Admin Acetaminophen 650 mg 01/27/19 16:04 02/03/19 17:04 Tylenol Tab* PO 650 mg Q6H PRN Administration FEVER/PAIN Apixaban 5 mg 01/27/19 21:00 02/03/19 08:57 Eliquis* PO 5 mg BID ALEC Administration Aspirin 81 mg 01/28/19 09:00 02/03/19 08:57 Aspirin Ec Tab* PO 81 mg DAILY ALEC Administration Atorvastatin Calcium 20 mg 01/27/19 17:00 02/03/19 17:03 Lipitor* PO 20 mg 1700 ALEC Administration Dextrose 12.5 gm 01/27/19 16:10 D50w Syringe 50 Ml* IV PUSH .FOR FS < 60 - SS PRN FS < 60 Docusate Sodium 100 mg 01/27/19 21:00 02/03/19 08:57 Colace Cap* PO 100 mg BID ALEC Administration Glyburide 2.5 mg 02/03/19 08:00 02/03/19 17:03 Diabeta Tab* PO 2.5 mg TID WITH MEALS ALEC Administration Insulin Glargine 16 units 02/03/19 21:00 Lantus(*) SUBCUT Q24H [facility] Insulin Human Lispro 0 - 10 units 01/31/19 21:00 02/03/19 17:04 Humalog* SUBCUT Not Given [facility] Protocol Memantine 5 mg 01/27/19 21:00 02/03/19 08:57 Namenda Tab* PO 5 mg BID ALEC Administration Senna 2 tab 01/27/19 16:04 Senokot Tab* PO BEDTIME PRN CONSTIPATION Vital Signs: Vital Signs Temp Pulse Resp BP Pulse Ox 98.1 F 75 16 124/71 97 02/03/19 14:59 02/03/19 14:59 02/03/19 14:59 02/03/19 14:59 02/03/19 16:58 Lab Results: Laboratory Results - last 24 hr 02/02/19 02/03/19 02/03/19 20:43 07:23 12:11 POC Glucose (mg/dL) 167 H 99 299 H 02/03/19 16:47 POC Glucose (mg/dL) 113 H Exam: GENERAL: no acute distress. alert and appropriate. LUNGS: clear to auscultation bilaterally HEART: regular rate and rhythm (h/o a.flutter) ABDOMEN: + bowel sounds, soft, non-tender, non-distended EXTREMITIES: no edema NEUROLOGIC: mild right facial droop. RUE/RLE motor 4+/5. LUE/LLE motor 5/5. Sensation intact x4 Assessment/Plan: 68yo man with left pontine stroke and new atrial flutter 1. Left pontine CVA: lipitor, aspirin, eliquis, heart healthy diet decaf ok, f/ u with neuro as outpatient. PT/OT/speech 2. Atrial flutter: rate controlled. Eliquis. f/u with cardiology as outpatient 3. H/o hypertension: normotensive off losartan, but consider add back for renal benefit in diabetic at low dose 4. Diabetes mellitus: Concern of increased creatinine. d/c'd metformin. SSI. glyburide 2.5mg BID, will increase to TID. Add Lantus 5. Mild dementia: namenda 6. DVT prophylaxis: eliquis 7. Advanced directives: full code 8. Est LOS: anticipate d/c on 02/03. 9. CKD: Cr 1.33, check in am 02/03/19 18:29
[2019-02-03] MEDS ORDERED: Insulin GLARGINE(*) 1 UNITS UNIT SUBCUT SCH (21:00)
[2019-02-04] MEDS: Acetaminophen TAB* 325 MG PO PRN (00:30)
[2019-02-04 05:28] LABS: ABS Basophils 0.1 10^3/ul (0-0.2); ABS Eosinophils 0.1 10^3/ul (0-0.6); ABS Monocytes 0.5 10^3/ul (0-0.8); ABS Neutrophils 3.7 10^3/ul (1.5-7.7); ABS Nucleated RBC 0 10^3/ul; Eosinophil % 2.2 %; Hematocrit 43 % (36-46); Hemoglobin 14.1 g/dL (14.0-18.0); Lymphocyte % 30.9 %; Mean Corpuscular HGB Conc 33 g/dL (31-36); Mean Corpuscular Hemoglobin 29 pg (27-31); Mean Corpuscular Volume 88 fL (80-94); Mean Platelet Volume 8.6 fL (7.4-10.4); Nucleated Red Blood Cells % 0.1; Platelet Count 166 10^3/uL (150-450); Red Blood Count 4.85 10^6 /uL (4.18-5.48); Red Cell Distribution Width 14 % (10.5-15); White Blood Count 6.4 10^3/uL (3.5-10.8)
[2019-02-04 05:38] VITALS: BP 123/73
[2019-02-04 05:45] LABS: Albumin 3.6 g/dL (3.2-5.2); Albumin/Globulin Ratio 1.2 (1-3); BUN/Creatinine Ratio 21.5 (8-20); Calcium 8.9 mg/dL (8.6-10.3); EGFR African American 58.7 (>60); EGFR Non-African American 48.5 (>60); Total Bilirubin 0.4 mg/dL (0.2-1.0); Total Protein 6.6 g/dL (6.4-8.9)
[2019-02-04] MEDS: Insulin LISPRO* 1 UNITS UNIT SUBCUT SCH ×2 (07:22→12:00)
[2019-02-04] MEDS: Apixaban* 5 MG TAB PO SCH (08:07)
[2019-02-04] MEDS: Aspirin EC TAB* 81 MG TAB.EC PO SCH (08:07)
[2019-02-04] MEDS: Docusate CAP* 100 MG PO SCH (08:07)
[2019-02-04] MEDS: Memantine TAB* 5 MG PO SCH (08:07)
[2019-02-04] MEDS: glyBURIDE TAB* 2.5 MG PO SCH ×2 (09:00→12:00)
--- NOTE | 2019-02-04 22:14 | DS ---
CC: Dr. Sergey Tamez DISCHARGE SUMMARY: DATE OF ADMISSION: 01/27/19 DATE OF DISCHARGE: 02/04/19 DISCHARGE DIAGNOSES: 1. Left pontine cerebrovascular accident with right-sided weakness. 2. Vascular dementia. 3. Diabetes mellitus. 4. Atrial flutter. 5. Diabetes peripheral neuropathy. 6. Coronary artery disease. 7. Chronic Kidney Disease HISTORY OF PRESENT ILLNESS AND HOSPITAL COURSE: For a complete history of the events leading up to his rehab stay, please see the history and physical dictated by me on 01/27/19. While on the rehab unit, the patient's routine blood draw on the morning after admission showed elevated BUN and creatinine. His creatinine was 1.5. It was felt that the creatinine was too high for him to resume his metformin and his metformin was held for the rest of his rehab stay. The creatinine was rechecked on 02/04/19 and was still over 1.4. The patient was restarted on his glyburide 2.5 mg with meals. His blood sugars continue to fluctuate. It was attempted to start him on Lantus insulin, but his blood sugars bottomed out the following morning. He was sent home with just his glyburide. He was told to keep a medication diary and to call Dr. Tamez's office for any blood sugars that were high. The patient otherwise was fairly stable from a medical point of view. He was maintained on both aspirin and Eliquis for secondary stroke prevention. The patient was seen by both Physical and Occupational Therapy as well as Speech Therapy. He made good gains with all disciplines. With Physical Therapy at the time of admission, the patient required contact guard to do a transfer, contact guard to ambulate about 120 feet. With Occupational Therapy at the time of admission, the patient required contact guard to do toilet transfer, contact guard for toileting, contact guard for lower body dressing, independent with upper body dressing. By the time of discharge, he was independent with transfers, independent ambulating 150 feet. He was independent with upper body dressing, supervision for lower body dressing unless he was seated. He was supervision for toileting with a walker and a raised toilet seat, supervision for bathing. The patient did receive stroke education with his . He was discharged home on 02/04/19. DISCHARGE DIET: Consistent carbohydrate. DISCHARGE MEDICATIONS: Included: 1. Eliquis 5 mg orally twice daily. 2. Aspirin 81 mg daily. 3. Atorvastatin 20 mg at 5 p.m. 4. Glyburide 2.5 mg 3 times daily with meals. 5. Namenda 5 mg orally twice daily. 6. Losartan 25 mg daily. SERVICES AFTER DISCHARGE: The patient will have outpatient therapy as needed. Follow up with his primary care doctor, Dr. Sergey Tamez, regarding his diabetes as well as his anticoagulation. TIME SPENT: Time for this discharge was approximately 45 minutes, greater than half of which was spent with the patient discussing post-rehabilitation management of his diabetes as well as followup and medications. [id number]/CPS #: [id number] BRAD
== END 2019-02-04 12:55 | disposition home or self-care (01) | DRG 57 ==
LOC: PMRU 15:15
PROVIDERS: ADMIT Physical Medicine & Rehabilitation; ATTEND Physical Medicine & Rehabilitation
PROC: F07Z5ZZ Bed Mobility Treatment (ICD-10-PCS; principal; 2019-01-27)
PROC: F07Z9ZZ Gait Training/Functional Ambulation Treatment (ICD-10-PCS; 2019-01-27)
PROC: F07Z8ZZ Transfer Training Treatment (ICD-10-PCS; 2019-01-27)
PROC: F08Z0ZZ Bathing/Showering Techniques Treatment (ICD-10-PCS; 2019-01-27)
PROC: F08Z1ZZ Dressing Techniques Treatment (ICD-10-PCS; 2019-01-27)
PROC: F08Z3ZZ Feeding/Eating Treatment (ICD-10-PCS; 2019-01-27)
PROC: F06Z8ZZ Motor Speech Treatment (ICD-10-PCS; 2019-01-27)
PROC: F06Z6ZZ Communicative/Cognitive Integration Skills Treatment (ICD-10-PCS; 2019-01-27)
DX: I69.351 Hemiplegia and hemiparesis following cerebral infarction affecting right dominant side (principal); I48.92 Unspecified atrial flutter; E11.42 Type 2 diabetes mellitus with diabetic polyneuropathy; E11.22 Type 2 diabetes mellitus with diabetic chronic kidney disease; I69.322 Dysarthria following cerebral infarction; F01.50 Vascular dementia, unspecified severity, without behavioral disturbance, psychotic disturbance, mood disturbance, and anxiety; I69.392 Facial weakness following cerebral infarction; I25.10 Atherosclerotic heart disease of native coronary artery without angina pectoris; I12.9 Hypertensive chronic kidney disease with stage 1 through stage 4 chronic kidney disease, or unspecified chronic kidney disease; N18.9 Chronic kidney disease, unspecified; G25.0 Essential tremor; B19.20 Unspecified viral hepatitis C without hepatic coma; Z95.1 Presence of aortocoronary bypass graft; Z95.5 Presence of coronary angioplasty implant and graft; Z95.2 Presence of prosthetic heart valve; Z79.4 Long term (current) use of insulin; Z79.899 Other long term (current) drug therapy; Z88.8 Allergy status to other drugs, medicaments and biological substances; Z79.01 Long term (current) use of anticoagulants
CPT/HCPCS: 36415; 80048; 80053; 85025; A9270-GY

== ENCOUNTER 2019-04-14 16:50 | Inpatient (IN) | payer MEDICARE ==
--- NOTE | 2019-04-14 17:16 | ED ---
Complex/Multi-Sys Presentation - HPI Summary HPI Summary: This pt is a 68 y/o M presenting to [facility] with his and a CC of increased fatigue over the last week. Per the the pt has been sleeping around 18-20 hours a day. He reports becoming incontinent yesterday and a decrease in his ability to walk today at 1600. Per the pt has had increased tremors and has had increase R sided generalized weakness. He reports being dizzy, having a decreased appetite, incontinence issues and R leg pain. His states that he has lost 12 pounds during this week. He has no headaches, fevers, coughs, SOB, CP, abdominal pain, bowel movement issues, and diaphoresis. Pt was here for a stroke and went downhill since January per the pts . He has a Hx of Atrial flutter, hepatitis C, DM, and kidney stones. He has no alleviating or aggravating symptoms. - History Of Current Complaint Time Seen by Provider: 04/14/19 16:57 Hx Obtained From: Patient, Family/Lift Manager - Onset/Duration: Gradual Onset, Lasting Weeks - 1, Still Present, Worse Since - onset Timing: Constant Severity Currently: Moderate Severity Initially: Moderate Aggravating Factor(s): none Alleviating Factor(s): none Associated Signs And Symptoms: Positive: Dizziness, Decreased Oral Intake, Other - NEGATIVE: headaches, fevers, coughs, SOB, CP, abdominal pain, bowel movement issues, and diaphoresis. POSITIVE: R leg pain, incontinence, fatigue, R sided generalized weakness - Allergies/Home Medications Allergies/Adverse Reactions: Allergies Allergy/AdvReac Type Severity Reaction Status Date / Time heparin Allergy See Comment Verified 01/23/19 12:28 PMH/Surg Hx/FS Hx/Imm Hx Previously Healthy: No Endocrine/Hematology History: Reports: Hx Diabetes Cardiovascular History: Reports: Hx Coronary Artery Disease - quadruple bypass - 2004, Hx Valvular Heart Disease, Other Cardiovascular Problems/Disorders - Aortic valve replacement 2010 Denies: Hx Hypertension, Hx Pacemaker/ICD History: Reports: Hx Kidney Infection, Hx Kidney Stones, Other Problems/ Disorders - Kidney failure (not specific if acute or chronic) Denies: Hx Renal Disease Sensory History: Reports: Hx Cataracts, Hx Contacts or Glasses Denies: Hx Eye Injury, Hx Hearing Aid Opthamlomology History: Reports: Hx Cataracts, Hx Contacts or Glasses Denies: Hx Eye Injury Neurological History: Reports: Other Neuro Impairments/Disorders - Narcolapsy Psychiatric History: Denies: Hx Panic Disorder - Surgical History Surgery Procedure, Year, and Place: 2004 QUADRUPLE CARDIAC BYPASS, [facility]. 2010 AORTIC VALVE REPLACEMENT, [facility]. 09/2012 PREVIOUS STENT - CARDIAC. 2010 COLONOSCOPY, [facility]. 2013 CYSTOSCOPY RIGHT URETER STENT REMOVAL, URETEROSCOPY, LITHOTRIPSY, STENT INSERTION, [facility] Hx Anesthesia Reactions: No - Immunization History Date of Tetanus Vaccine: 2010 Date of Influenza Vaccine: Fall 2011 Infectious Disease History: No Infectious Disease History: Reports: Hx Hepatitis - HEP. C SINCE 2011, BLD WORK YEARLY Denies: Traveled Outside the [place] in Last 30 Days - Family History Known Family History: Positive: Other Family History: negative for colon CA - Social History Alcohol Use: Occasionally Alcohol Amount: 4-5/month Substance Use Type: Reports: None Smoking Status (MU): Never Smoked Tobacco Have You Smoked in the Last Year: No Review of Systems Positive: Fatigue. Negative: Fever, Skin Diaphoresis Negative: Chest Pain Negative: Shortness Of Breath, Cough Gastrointestinal: Other - decreased appetite Negative: Abdominal Pain, Vomiting, Diarrhea, Nausea Genitourinary: Negative - Bowel mvement complications Positive: incontinence Positive: Other - R Leg pain Neurological: Other - POSITIVE: dizziness, R sided generalized weakness Negative: Headache All Other Systems Reviewed And Are Negative: Yes Physical Exam - Summary Physical Exam Summary: Appearance: Well-appearing, Well-nourished, lying in bed comfortably Skin: Warm, dry, no obvious rash Eyes: sclera anicteric, no conjunctival pallor ENT: mucous membranes moist, pharynx appears normal Neck: Supple, nontender Respiratory: Clear to auscultation, no signs of respiratory distress Cardiovascular: Normal S1, S2. No murmurs. Normal distal pulses in tibial and radial bilaterally. Abdomen: Soft, nontender, normal active bowel sounds present Musculoskeletal: Normal, Strength/ROM Intact Neurological: A&Ox3, awake and alert, mentation is normal, speech is fluent and appropriate, Strength in extremities is symmetric without obvious weakness Psychiatric: Affect is blunted and he seems somewhat depressed Triage Information Reviewed: Yes Vital Signs On Initial Exam: Initial Vitals Temp Pulse Resp BP Pulse Ox 99.7 F 104 16 120/79 96 04/14/19 16:59 06/20/19 16:59 04/14/19 16:59 04/14/19 16:59 04/14/19 16:59 Vital Signs Reviewed: Yes Diagnostics - Vital Signs Vital Signs Temp Pulse Resp BP Pulse Ox 04/14/19 17:03 119 120/79 95 04/14/19 17:02 111 96 04/14/19 16:59 99.7 F 104 16 120/79 96 - Laboratory Result Diagrams: 04/15/19 06:46 04/15/19 06:46 Lab Statement: Any lab studies that have been ordered have been reviewed, and results considered in the medical decision making process. - EKG 1720 Cardiac Rate: Tachycardia - 111 BPM EKG Rhythm: Atrial Fibrillation Summary of EKG Findings: A-FIB at 111 BPM with RVR, P waves, QRS complex, and T waves are within normal limits, T waves and intervals are normal, no ischemic changes. Interpreted by Dr. Osborne at 1724 04/14/19. Complex Multi-Symp Course/Dx Course Of Treatment: This pt is a 68 y/o M presenting to [facility] with his and a CC of increased fatigue over the last week. Per the the pt has been sleeping around 18-20 hours a day. He reports becoming incontinent yesterday and a decrease in his ability to walk today at 1600. Per the pt has had increased tremors and has had increase R sided generalized weakness. Upon his PE the pt is found to have an affect that is blunted and he seems somewhat depressed, and his strength in extremities is symmetric without obvious weakness. His EKG shows A-FIB at 111 BPM with RVR, P waves, QRS complex, and T waves are within normal limits, T waves and intervals are normal, no ischemic changes. The pt's troponin is .31. His second Troponin is .44. His urine labs are significant for a UTI. He was given the following medications during his ED course: Ceftriaxone Sodium 50 mls, APAP 975 mg. He will be admitted to Dr. Balderrama, Hospitalist, with a DX of a fever and uti. - Diagnoses Provider Diagnoses: Fever, UTI (urinary tract infection) - Physician Notifications Discussed Care Of Patient With: Brigida Balderrama Time Discussed With Above Provider: 20:22 Instructed by Provider To: Admit As Inpatient Admit/Transition Orders Completed By ED Provider: Yes Discharge - Sign-Out/Discharge Documenting (check all that apply): Patient Departure - admitted Patient Received Moderate/Deep Sedation with Procedure: No - Discharge Plan Condition: Stable Disposition: ADMITTED TO [facility] - Billing Disposition and Condition Condition: STABLE Disposition: Admitted to [facility] - Attestation Statements Document Initiated by Nayely: Yes Documenting Scribe: James Ceja Provider For Whom Nayely is Documenting (Include Credential): Mick Osborne MD Scribe Attestation: James Bardales, scribed for Mick Osborne MD on 04/16/19 at 0452. Scribe Documentation Reviewed: Yes Provider Attestation: The documentation as recorded by the James mistry accurately reflects the service I personally performed and the decisions made by , Mick Osborne MD Status of Scribe Document: Viewed
[2019-04-14 17:54] LABS: ALT 34 U/L (7-52); AST 28 U/L (13-39); Albumin 3.3 g/dL (3.2-5.2); Albumin/Globulin Ratio 0.8 (1-3); Alkaline Phosphatase 72 U/L (34-104); Anion Gap 11 mmol/L (2-11); BUN/Creatinine Ratio 15.3 (8-20); Blood Urea Nitrogen 30 mg/dL (6-24); CO2 Carbon Dioxide 20 mmol/L (22-32); Calcium 8.8 mg/dL (8.6-10.3); Chloride 102 mmol/L (101-111); EGFR African American 41.1 (>60); Globulin 3.9 g/dL (2-4); Glucose 272 mg/dL (70-100); Potassium 5.2 mmol/L (3.5-5.0); Sodium 133 mmol/L (135-145); Total Protein 7.2 g/dL (6.4-8.9)
[2019-04-14 17:57] LABS: Troponin I 0.31 ng/mL (<0.04)
[2019-04-14 18:01] LABS: Hematocrit 42 % (42-52); Hemoglobin 14.1 g/dL (14.0-18.0); Mean Corpuscular HGB Conc 34 g/dL (31-36); Mean Corpuscular Hemoglobin 29 pg (27-31); Mean Corpuscular Volume 87 fL (80-94); Mean Platelet Volume 8.9 fL (7.4-10.4); Platelet Count 216 10^3/uL (150-450); Red Blood Count 4.82 10^6 /uL (4.18-5.48); Red Cell Distribution Width 13 % (10-15)
[2019-04-14 18:31] LABS: TSH (Thyroid Stimulating Horm) 2.63 mcIU/mL (0.34-5.60)
[2019-04-14] MEDS ORDERED: NS 0.9% 1000 ML** 2,000 ML IV ONE (19:33)
[2019-04-14] MEDS ORDERED: Acetaminophen TAB* 325 MG PO ONE (19:33)
[2019-04-14] MEDS ORDERED: cefTRIAXone(*) 1 GM in NS 0.9% 50 ML* 50 ML IVPB ONE (19:35)
[2019-04-14 20:01] LABS: Urine Appearance Cloudy; Urine Bacteria Absent (Absent); Urine Bilirubin Negative (Negative); Urine Blood 1+ (Negative); Urine Color Yellow; Urine Glucose 3+(>=500 mg/dL) (Negative); Urine Ketones 1+ (Negative); Urine Nitrite Negative (Negative); Urine Protein 1+(30 mg/dL) (Negative); Urine Red Blood Cell 3+(>10/hpf) (Absent); Urine Specific Gravity 1.025 (1.010-1.030); Urine Squamous Epithelial Cell Present (Absent); Urine Urobilinogen Negative (Negative); Urine White Blood Cell Trace(0-5/hpf) (Absent)
[2019-04-14 20:36] LABS: Troponin I 0.44 ng/mL (<0.04)
[2019-04-14] MEDS ORDERED: NS 0.9% 1000 ML** 1,000 ML IV ONE (20:59)
[2019-04-14] MEDS ORDERED: Dextrose 50% Syringe 50 ML* 25 GM/50 ML SYRINGE IV PUSH PRN (21:06)
[2019-04-14] MEDS ORDERED: Heparin DRIP 25,000 UNITS(*) 25,000 UNITS/500 ML BAG IV SCH (21:15)
--- NOTE | 2019-04-14 22:43 | HP ---
CC: Dr. Tamez * HISTORY AND PHYSICAL: DATE OF ADMISSION: 04/14/19 PRIMARY CARE PROVIDER: Dr. Tamez. CHIEF COMPLAINT: Malaise. HISTORY OF PRESENT ILLNESS: Mr. Freeman is a 68-year-old male who in January 2019 suffered from a left pontine CVA. He rehabbed at [facility] and was doing quite well for approximately 1 month following his discharge. He has subsequently started to have increased weakness and malaise. For the last 1 week or so, the patient states that he has felt terrible. He is a poor historian and very vague when speaking to him. His fills in that he has been sleeping all day long. He has also become incontinent of urine, which is abnormal for him. She questions whether or not he truly has lost control of his urine or he just is having a hard time getting out of bed. When the patient is sitting in a chair in the living room, she notes that it is taking 3 or 4 tries for him to be able to get out of the chair. He recently just went back to outpatient PT; however, became discouraged when the physical therapist told him that it would likely be all summer that he would need to go to therapy. The patient does state that he feels somewhat depressed. It is unclear if this has been longer than just the last week. The patient, because of feeling so poorly, presented to the emergency room today. He was found to be febrile with a fever of 101.9. He denies any diarrhea or constipation. He denies cough, shortness of breath, or sputum production. He denies any dysuria. He denies any skin breakdown. He denies any sick contacts. He has not checked his temperature at home. His notes that he typically will sleep under 4 blankets; however, this morning , she found him partially uncovered, which is very abnormal. He does state that he has had some mild pain in his abdomen, but again is very vague about this and is unable to tell me specifically where the pain is. PAST MEDICAL HISTORY: 1. 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 2. Vascular dementia. 3. Type 2 diabetes. 4. Atrial flutter. 5. DVT, PE following aortic valve replacement. 6. Hepatitis C - not on treatment. 7. Diabetic neuropathy. 8. Coronary artery disease. 9. Stage III chronic kidney disease. 10. Hypertension. PAST SURGICAL HISTORY: 1. Aortic valve replacement in 2011. 2. CABG in 2003. 3. Inguinal hernia repair. MEDICATIONS: 1. Glyburide 2.5 mg p.o. t.i.d. 2. Namenda 5 mg p.o. b.i.d. 3. Losartan 25 mg p.o. daily. 4. Lipitor 20 mg p.o. daily. 5. Aspirin 81 mg p.o. daily. 6. Eliquis 5 mg p.o. b.i.d. ALLERGIES: HEPARIN. FAMILY HISTORY: Mom at the age of 89 of old age. Dad at the age of 60 of an IA. SOCIAL HISTORY: The patient does not smoke. He drinks alcohol on occasion. He continues to smoke marijuana a couple times weekly. 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 He is . He has 1 child. He indicates that his is his health care proxy. REVIEW OF SYSTEMS: At home, the patient denied fever; however, he was found to be febrile in the ER. His appetite has been very poor over the last couple of weeks. He denies any chest pain or edema. No cough. No shortness of breath. No nausea, vomiting, constipation, or diarrhea. He does admit to mild abdominal discomfort; however, is unable to specify any further. No hematochezia. No hematuria. No dysuria. He has slight residual right-sided weakness. No sudden changes in vision. No dysphagia. He does complain of pain overlying the MCPs of the second, third, and fourth fingers of the left hand. The patient noted that there has been redness overlying the MCPs of the left hand for a few days. He does admit to feeling depressed. PHYSICAL EXAMINATION GENERAL: The patient is a well-developed elderly male seen lying in the stretcher, appearing to be flushed in the face, but in no acute distress. VITAL SIGNS: Blood pressure 104/79, pulse 99, respirations 20, temp 101.9, O2 sat 98% on room air. HEENT: Pupils are equal and round. Extraocular muscles are intact. Oropharynx is clear. Oral mucosa is moist. There is no submandibular, cervical , or supraclavicular adenopathy. Thyroid is not enlarged. No thyroid nodule is noted. PULMONARY: Lungs are clear to auscultation bilaterally. CARDIAC: Normal S1, S2. Heart rate is irregularly irregular and mildly tachycardic. There are no murmurs. There is no lower extremity edema. ABDOMEN: Bowel sounds are present. Abdomen is soft, nontender, nondistended. MUSCULOSKELETAL: There is no cyanosis or clubbing of the digits. There is full active range of motion of all 4 extremities. There is mild swelling overlying the dorsum of the left hand and second, third, and fourth metacarpal joints. NEURO: Cranial nerves II through XII are grossly intact. Sensation is intact to light touch throughout. Strength appears to be 5/5 and symmetric bilaterally. PSYCH: The patient is alert. He seems almost somewhat withdrawn. SKIN: Warm and dry. The patient appears to have diffusely scattered erythema migrans lesions over his trunk and legs. DIAGNOSTIC STUDIES/LAB DATA: WBC 16.0, hemoglobin 14.1, hematocrit 42, platelets 216. Sodium 133, potassium 5.2, chloride 102, CO2 of 20, BUN 30, creatinine 1.96, glucose 272. Lactic acid 0.9. Calcium 8.8, magnesium 2.0. Bilirubin 1.1, AST 28, ALT 34, alk phos 72. Troponin 0.31, up to 0.44. Albumin 3.3. TSH 2.63. Urinalysis reveals cloudy urine with specific gravity of 1.025 with 1+ ketones, 1+ blood, 3+ rbc's, trace wbc's, negative for leukocyte esterase, negative for bacteria and nitrites. EKG reveals atrial fibrillation without any acute ST-T wave abnormalities. There are nonspecific T wave changes, however, in the lateral leads. ASSESSMENT AND PLAN: Mr. Freeman is a 68-year-old male who has a history of recent history of recent pontine cerebrovascular accident, vascular dementia, type 2 diabetes, atrial flutter, coronary artery disease, stage III chronic kidney disease, and hypertension who is seen today in the emergency room for evaluation of malaise and fever and is found to have probable early disseminated Lyme disease. 1. Sepsis secondary to probable early disseminated Lyme. At this point, the patient appears to have diffusely scattered erythema migrans on his trunk and legs. The patient is known to be someone who goes outdoors frequently. He does not recall a tick bite, however. The patient received ceftriaxone 1 g IV in the emergency room. I am going to continue this for now as his urinalysis is abnormal, though he gives no history of dysuria making urinary tract infection less likely. Lyme serology has been ordered. ID consultation has also been requested. The patient will have Tylenol for pain. I do question if the erythema, swelling, and mild joint discomfort he feels in the second, third, and fourth metacarpals on the left is related to potential Lyme disease. The patient will receive another liter of normal saline bolus, then 100 mL per hour. 2. Elevated troponin. The patient's initial troponin was elevated at 0.31. This has trended up to 0.44. The patient denies any chest pain. I suspect this represents demand ischemia in the setting of sepsis, elevated heart rate, and known coronary artery disease. I am going to obtain a transthoracic echocardiogram to evaluate for wall motion abnormalities. The patient unfortunately has an allergy to heparin where he develops a heparin-induced thrombocytopenia. Therefore, I am going to hold off on the heparin drip. If the patient were to develop any chest pain, I will contact Cardiology for recommendations on how to treat this further. The patient's EKG does not reveal any concerning acute ST-T wave changes. I will obtain an EKG in the morning as well as followup troponin. 3. Atrial fibrillation/flutter. The patient appears to be in mild atrial fibrillation with rapid ventricular rate. I suspect this is from volume depletion as he has not been eating or drinking well over the last couple weeks. I am going to be hydrating him, and I hope with this as well as improvement in his fevers, his heart rate will come down. I am not going to initiate any rate-lowering agents at this point. He will continue on his Eliquis. 4. Vascular dementia. Continue Namenda. 5. Type 2 diabetes. I am going to hold the patient's oral hypoglycemic for now and place him on a lispro sliding scale. 6. Stage III chronic kidney disease. The patient's creatinine is above his baseline. I again believe this is secondary to volume depletion. He is going to be hydrated and a followup BMP will be obtained tomorrow morning. 7. Hypertension. BP is slightly soft. We will monitor this. I have put hold parameters on his losartan. 8. DVT prophylaxis. According to the Adult Thrombosis Prophylaxis Risk Factor Assessment Guide, the patient has a total risk factor score of 5 making him the highest risk. He is already on Eliquis and this will act as his DVT prophylaxis. 9. Code status is full. TIME SPENT: Sixty five minutes was spent admitting this patient. [id number]/[facility]PS #: [id number] BRAD
[2019-04-14] MEDS: NS 0.9% 1000 ML** 1,000 ML IV SCH (23:22)
[2019-04-15 00:04] LABS: Troponin I 0.68 ng/mL (<0.04)
[2019-04-15] MEDS: Acetaminophen TAB* 325 MG PO PRN ×2 (03:11→09:28)
[2019-04-15 07:05] LABS: ABS Basophils 0.2 10^3/ul (0-0.2); ABS Lymphocytes 0.3 10^3/ul (1.0-4.8); ABS Monocytes 0.2 10^3/ul (0-0.8); ABS Neutrophils 14.5 10^3/ul (1.5-7.7); Eosinophil % 0.1 %; Hematocrit 39 % (42-52); Hemoglobin 13.2 g/dL (14.0-18.0); Lymphocyte % 2.2 %; Mean Corpuscular HGB Conc 34 g/dL (31-36); Mean Corpuscular Hemoglobin 29 pg (27-31); Mean Corpuscular Volume 88 fL (80-94); Mean Platelet Volume 8.5 fL (7.4-10.4); Platelet Count 214 10^3/uL (150-450); Red Blood Count 4.49 10^6 /uL (4.18-5.48); Red Cell Distribution Width 14 % (10-15); White Blood Count 15.3 10^3/uL (3.5-10.8)
[2019-04-15 07:28] LABS: BUN/Creatinine Ratio 18.8 (8-20); EGFR African American 54.3 (>60); EGFR Non-African American 44.9 (>60); Potassium 4.6 mmol/L (3.5-5.0)
[2019-04-15 07:40] LABS: Troponin I 0.8 ng/mL (<0.04)
[2019-04-15] MEDS ORDERED: Perflutren Lipid Microsphere* 3 ML VIAL ONE (07:58)
[2019-04-15] MEDS: Insulin LISPRO* 1 UNITS UNIT SUBCUT SCH ×4 (08:51→21:58)
[2019-04-15] MEDS ORDERED: Losartan TAB* 25 MG PO SCH (09:00)
[2019-04-15] MEDS: Aspirin EC TAB* 81 MG TAB.EC PO SCH (09:27)
[2019-04-15] MEDS: Apixaban* 5 MG TAB PO SCH ×2 (09:27→20:20)
[2019-04-15] MEDS: Losartan TAB* 25 MG PO SCH (09:27)
[2019-04-15] MEDS: Memantine TAB* 5 MG PO SCH ×2 (09:28→20:21)
[2019-04-15] MEDS: NS 0.9% 1000 ML** 1,000 ML IV SCH (09:29)
--- NOTE | 2019-04-15 11:37 | PN ---
Subjective Date of Service: 04/15/19 Interval History: Mr. Freeman is feeling poor today. He is unable to provide any further explanation of this. He denies CP, SOB, N/V. He does endorse a poor appetite. at bedside does not think he looks improved from yesterday overall, but thinks his rash may have improved. Nursing reports elevated trops. Family History: Unchanged from Admission Social History: Unchanged from Admission Past Medical History: Unchanged from Admission Objective Active Medications: Acetaminophen (Tylenol Tab*) 650 mg PO Q4H PRN PAIN or FEVER Apixaban (Eliquis*) 5 mg PO BID [facility] Aspirin (Aspirin Ec Tab*) 81 mg PO DAILY [facility] Atorvastatin Calcium (Lipitor*) 20 mg PO 1700 [facility] Dextrose (D50w Syringe 50 Ml*) 12.5 gm IV PUSH .FOR FS < 60 - SS PRN FS < 60 Sodium Chloride (Ns 0.9% 1000 Ml) 1,000 mls @ 100 mls/hr IV PER RATE [facility] Ceftriaxone Sodium 1 gm/ (Sodium Chloride) 50 mls @ 200 mls/hr IVPB Q24H [facility] Insulin Human Lispro (Humalog*) 0 units SUBCUT ACHS [facility]; Protocol Losartan Potassium (Cozaar Tab*) 25 mg PO DAILY [facility] Memantine (Namenda Tab*) 5 mg PO BID [facility] Vital Signs - 8 hr 04/15/19 04/15/19 04/15/19 04:28 05:02 08:00 Temperature 100.9 F 100.6 F Pulse Rate 120 Respiratory 22 24 Rate Blood Pressure 113/58 (mmHg) O2 Sat by Pulse 96 Oximetry 04/15/19 08:28 Temperature 101.1 F Pulse Rate 107 Respiratory 24 Rate Blood Pressure 107/62 (mmHg) O2 Sat by Pulse 97 Oximetry Oxygen Devices in Use Now: None Appearance: Elderly male laying in bed in NAD Eyes: No Scleral Icterus Ears/Nose/Mouth/Throat: Mucous Membranes Moist Neck: NL Appearance and Movements; NL JVP, Trachea Midline Respiratory: Symmetrical Chest Expansion and Respiratory Effort, Clear to Auscultation Cardiovascular: NL Sounds; No Murmurs; No JVD, RRR Abdominal: NL Sounds; No Tenderness; No Distention Extremities: No Edema Skin: - - Generalized erythema Neurological: NL Sensation, - - Oriented to self and place Lines/Tubes/Other Access: Clean, Dry and Intact Peripheral IV Result Diagrams: 04/15/19 06:46 04/15/19 06:46 Assess/Plan/Problems-Billing Assessment: Mr. Freeman is a 68 yo M with PMH of CVA, dementia, DM2, aflutter, DVT/PE, CKD 3, HTN, CAD, and hep C; who presented to the ED with c/o malaise and was found to meet severe sepsis criteria with suspected source being Lyme. - Patient Problems (1) Disseminated Lyme disease Code(s): A69.20 - LYME DISEASE, UNSPECIFIED Comment: - Presenting with fever, erythematous rash, diffuse joint pain - Lyme serology positive - Appreciate ID consult; recommends blood cultures and TTE d/t history of valve replacement - Continue ceftriaxone (2) Sepsis Comment: - Resolved - Met criteria on admission with leukocytosis, fever, tachycardia; source is Lyme - Blood cultures pending - TTE pending - Plan as above (3) Elevated troponin Code(s): R74.8 - ABNORMAL LEVELS OF OTHER SERUM ENZYMES Comment: - Asymptomatic - No EKG changes - Suspect demand ischemia (4) Acute on chronic renal failure Code(s): N17.9 - ACUTE KIDNEY FAILURE, UNSPECIFIED; N18.9 - CHRONIC KIDNEY DISEASE, UNSPECIFIED Comment: - Baseline CKD stage 3 - Creatinine trending down, almost to baseline - Pre-renal, secondary to hypovolemia - Continue IVF (5) History of CVA (cerebrovascular accident) Code(s): Z86.73 - PRSNL HX OF TIA (TIA), AND CEREB INFRC W/O RESID DEFICITS Comment: - Continue Eliquis, aspirin, atorvastatin (6) Atrial flutter Code(s): I48.92 - UNSPECIFIED ATRIAL FLUTTER Comment: - Mild tachycardia on admission secondary to sepsis, now resolved and rate controlled - Continue Eliquis (7) Diabetes Code(s): E11.9 - TYPE 2 DIABETES MELLITUS WITHOUT COMPLICATIONS Comment: - Moderate glucose control - Hold glyburide d/t poor PO intake - Continue Lispro SS (8) HTN (hypertension) Code(s): I10 - ESSENTIAL (PRIMARY) HYPERTENSION Comment: - Normotensive, SBP 110s - Continue losartan (9) CAD (coronary artery disease) Code(s): I25.10 - ATHSCL HEART DISEASE OF [place] CORONARY ARTERY W/O ANG PCTRS Comment: - Continue aspirin, atorvastatin, Eliquis (10) Vascular dementia Code(s): F01.50 - VASCULAR DEMENTIA WITHOUT BEHAVIORAL DISTURBANCE Comment: - Continue Namenda (11) DVT prophylaxis Comment: - Eliquis (12) Full code status Code(s): Z78.9 - OTHER SPECIFIED HEALTH STATUS Comment: Status and Disposition: Inpatient. Anticipate d/c home when medically stable, timeframe unknown. Attending: Rhett Downing
[2019-04-15] MEDS ORDERED: Vancomycin(*) 1,500 MG in NS 0.9% 250 ML* 250 ML IVPB ONE (13:00)
[2019-04-15] MEDS ORDERED: Vancomycin per Pharmacy* NOTE FOLLOW UP SCH (13:00)
--- NOTE | 2019-04-15 13:01 | CONS ---
CONSULTATION REPORT: DATE OF CONSULTATION: 04/15/19 PRIMARY CARE PROVIDER: Dr. Sergey Tamez. PHYSICIAN REQUESTING CONSULTATION: Dr. Brigida Balderrama. CONSULTING SERVICE: Infectious Disease. PROVIDER: Jennifer Larson NP My attending provider is Dr. Soy Gonzalez.* (DICTATED BY JENNIFER LARSON, CONTACT [facility]) REASON FOR CONSULT: Fever with erythematous rash. IMPRESSION: 1. Fever with erythematous rash and diffuse joint pain. Differential diagnosis includes possible disseminated Lyme, viral illness, endocarditis. The patient had a temperature max of 101.9 at the time of admission and again early this morning. He endorses a history of lethargy, diffuse joint pain, drenching sweats at home over the last approximate a week. He additionally has a right hand swelling and discomfort that has been present for approximately a week. He has a transthoracic echocardiogram pending for today, which will allow us to eval for possible endocarditis. He reports that he frequently walks outside. 2. Acute on chronic kidney injury. After receiving IV fluids, the patient's creatinine is back near his baseline. 3. Sepsis. The patient's lactic acid was 0.9 on admission. He had a fever with tachycardia, acute on chronic kidney injury, elevated troponin, elevated total bilirubin, leukocytosis. The source is suspected to be the cause of #1. 4. Diabetes mellitus type 2. RECOMMENDATIONS: Recommend continuing ceftriaxone for now. Will start vancomycin to cover for a possible tricuspid valve endocarditis. Additionally, recommend obtaining blood cultures as he did not have blood cultures on admission. We will continue to follow along with further recommendations based on culture results and his clinical course. HISTORY OF PRESENT ILLNESS: Mr. Freeman is a 68-year-old male with past medical history significant for recent left pontine CVA in January 2019, vascular dementia , diabetes mellitus type 2, atrial fibrillation, history of DVT and PE following aortic valve replacement, hepatitis C, diabetic neuropathy, coronary artery disease, chronic kidney disease stage 3 and hypertension, who has recently been discharged after having rehabilitation at [facility] on the rehabilitation unit and has been home for approximately 1 month. He reports for approximately a week he has had a lot of lethargy and not feeling well with drenching sweats. He also reports for approximately the same amount of time, he has had edema and pain in his left hand. The patient was brought to the emergency room for further evaluation. In the emergency room, he was found to have a fever of 101.9. He had labs showing a white blood cell count of 16.0. Mild hyperkalemia with potassium of 5.2. His creatinine is above his baseline. Additionally, he was noted to have an elevated troponin of 0.31. His had urinalysis with 1+ protein, ketones 1+, blood 1+, rbc 3+, squamous epithelial cells present, glucose 3+. He received ceftriaxone 1 g IV. He was referred to the hospitalist service for admission. While in the hospital, his troponin continued to trend upward, last troponin of 0.8. Improvement in his creatinine after receiving IV fluids. He is noted to have erythematous rash to his torso. Currently denies fevers, but reports chills. Denies shortness of breath, cough. He reports diffuse joint pain, pain in his left hand. He denies nausea, vomiting, diarrhea. He denies any recent travel. PAST MEDICAL HISTORY: 1. Left pontine CVA January 2019. 2. Vascular dementia. 3. Diabetes mellitus type 2. 4. Atrial fibrillation. 5. History of DVT and PE. 6. History of hepatitis C. 7. Diabetic neuropathy. 8. Coronary artery disease. 9. Chronic kidney disease, stage 3. 10. Hypertension. 11. Essential tremor. 12. Thrombocytopenia. PAST SURGICAL HISTORY: 1. Status post aortic valve replacement. 2. Status post 4-vessel coronary artery bypass graft. 3. Status post inguinal hernia repair. MEDICATIONS: Home medications include: 1. Glyburide 2.5 mg by mouth 3 times daily with meals. 2. Namenda 5 mg by mouth twice daily. 3. Losartan 25 mg by mouth daily. 4. Atorvastatin 20 mg by mouth daily. 5. Aspirin 81 mg by mouth daily. 6. Eliquis 5 mg by mouth twice daily. HOSPITAL MEDICATIONS: Include: 1. Acetaminophen 650 mg by mouth every 4 hours as needed for fever or pain. 2. Eliquis 5 mg by mouth twice daily. 3. Aspirin 81 mg by mouth daily. 4. Atorvastatin 20 mg by mouth daily. 5. Ceftriaxone 1 g IV daily. 6. Dextrose 12.5 g IV push for glucose less than 60 as needed. 7. Humalog insulin sliding scale subcutaneous with meals and at bedtime. 8. Losartan 25 mg by mouth daily. 9. Namenda 5 mg by mouth twice daily. 10. Sodium chloride 100 mL IV per hour. ALLERGIES: HEPARIN due to history of heparin-induced thrombocytopenia. FAMILY HISTORY: The patient denies any family history of recurrent or resistant infections or tuberculosis. Mother passed at age 89 from old age. Father passed at age 60 from [place]. He has a cousin with a history of diabetes. Denies family history of cancer. SOCIAL HISTORY: Occasionally drinks alcohol. Denies tobacco use and smokes marijuana several times weekly. REVIEW OF SYSTEMS: I performed a 10-point review of systems. All the pertinent positives and negatives are mentioned in the history of present illness. The remaining review of systems are negative. PHYSICAL EXAM: Vital Signs: Temperature 100.6, heart rate 120, respiratory rate 22, O2 sat 96% on room air, blood pressure 113/58. General Appearance: Alert, pleasant, appears to be in no acute distress. Head: Normocephalic, atraumatic. EENT: Pupils are equal and reactive to light. Extraocular movements are intact. No conjunctival hemorrhage noted. Mucous membranes are moist. Neck: Supple. No lymphadenopathy. Neurological: Alert and oriented x4. Cranial nerves II through XII are grossly intact. Cardiovascular: Irregular rate and rhythm. Tachycardic. No murmurs, rubs or gallops heard. No lower extremity edema. Respiratory: Lung sounds are clear to auscultation bilaterally. No accessory muscle use. Abdomen: Bowel sounds present. Abdomen is soft, nontender, nondistended. Musculoskeletal: No clubbing or cyanosis noted. He has full range of motion of his bilateral ankle, knees, hips, wrist, elbows and shoulders with no crepitus, erythema or swelling noted. To the dorsal aspect of his left hand, there is mild swelling and erythema and also edema to his second, third and fourth metacarpal joints. He is able to make a fist. Psychological: Calm and cooperative. Skin: He has a diffusely scattered erythematous rash over his abdomen and back. DIAGNOSTIC STUDIES/LAB DATA: Sodium 133, potassium 4.6, chloride 103, CO2 18, BUN 29, creatinine 1.54, glucose 176. White blood cell count 15.3, hemoglobin 13.2, hematocrit 39, platelet count 219. Troponins have been trending up from 0.31 on admission to 0.80 on last check. Urinalysis with 1+ protein, 1+ ketones , 1+ blood, 3+ wbc, squamous epithelial cells present, 3+ glucose. Please see impressions and recommendations outlined above. Thank you for asking us to see Mr. Freeman in consultation. Recommendations have been discussed with Keturah Stoner NP. The case has been discussed with my attending, Dr. Soy Gonzalez, who agrees with the plan of care. Reviewed by NARENDRA GLASS-Ernesto 04/18/19 1818 [id number]/[facility] #: [id number] [facility]
--- NOTE | 2019-04-15 17:15 | ECHO ---
*[facility]* [place] [address] Fax #: [phone] Transthoracic Echocardiogram Patient: Luis E Freeman Height: 70 in / D 177.8 cm : 1950 Weight: 173.6 lb / Study Date: 04/15/2019 78.9 kg Age: 68 BP: 113 / 58 Gender: M BMI/BSA: 25 kg/m^2 / HR: 120 bpm 1.97 m^2 *Decorator Consultant: Amalia Guerra [facility] *Referring Physician: * Brigida BalderramaReading Physician: Dmitriy Zambrano MD Indications: Abnormal EKG. History: Prosthetic valve. Coronary artery disease. PMH: Cerebrovascular accident January2019,CKD stage III,atrial flutter. Risk factors: Diabetes mellitus. Conclusions Summary: 1. Left ventricle: The estimated ejection fraction is 55-60%. 2. Right ventricle: The cavity size is mildly reduced. Systolic function is mildly to moderately reduced. 3. Ventricular septum: Ventricular septal wall motion has a postoperative appearance. Otherwise wall motion appears normal. 4. Aortic valve: There is a bioprosthetic valve. The findings are consistent with very mild stenosis. The peak systolic velocity is 2.68 m/sec. The mean systolic gradient is 15.0 mm Hg. The LVOT to aortic valve VTI ratio is 0.33. 5. Pulmonary arteries: Systolic pressure is within the normal range. Recommendations: Compared to prior study from 12/2018, most significant change is right ventricle size and function previously reported normal. Study data: Transthoracic echocardiogram. Procedure: Transthoracic echocardiography was performed. Image quality was adequate. Intravenous Definity , 3 mlswas administered. Complete 2D, spectral Doppler, and color flow Doppler. Patient status: Inpatient. Patient room number: 447-1. Rhythm: Atrial flutter. Findings Left ventricle: The cavity size is normal. Wall thickness is at the upper limits of normal. The estimated ejection fraction is 55-60%. Left ventricular diastolic function parameters are indeterminate. Right ventricle: Well visualized. The cavity size is mildly reduced. Systolic function is mildly to moderately reduced. Ventricular septum: Well visualized. Ventricular septal wall motion has a postoperative appearance. Left atrium: Well visualized. The atrium is moderately to severely dilated. Right atrium: Well visualized. The atrium is normal in size. Atrial septum: Well visualized. Mitral valve: Well visualized. The annulus is mildly calcified. The leaflets are normal thickness. There is no evidence of stenosis. There is mild regurgitation. Aortic valve: Well visualized. There is a bioprosthetic valve. The leaflets are normal thickness. The findings are consistent with very mild stenosis. There is no significant regurgitation. Tricuspid valve: Well visualized. The leaflets are normal thickness. There is no evidence of stenosis. There is mild regurgitation. Pulmonic valve: Well visualized. The leaflets are normal thickness. There is no evidence of stenosis. There is no significant regurgitation. Aorta: The aorta is well visualized and normal size. Aortic arch: The aortic arch is appears normal. Pericardium: There is no pericardial effusion. No evidence of pleural fluid accumulation. Pulmonary arteries: Not well visualized. Systolic pressure is within the normal range. Systemic veins: Not well visualized. Pulmonary veins: Visualization of the pulmonary venous anatomy is incomplete, but a significant abnormality is unlikely. Measurements Left ventricle Value Ref Aortic valve Value Ref TERI, LAX (L) 3.9 cm 4.2 - Edward diam, ED 1.8 cm ----- 5.8 Edward diam/bsa, ED 0.9 cm/m^2 ----- ESD, LAX 3.3 cm 2.5 - Peak v, S 2.68 m/sec ----- 4.0 VTI, S 44.5 cm ----- FS, LAX (L) 15 % 25 - 43 Accel time 123 ms ----- PW, ED, LAX 0.8 cm 0.6 - Mean grad, S 15.0 mm Hg ----- 1.0 Peak grad, S 29.0 mm Hg ----- FS (L) 15 % 25 - 43 LVOT/AV, VTI ratio 0.33 ----- Mid-wall FS 6 % -------- GLENDY, VTI 1.14 cm^2 ----- PW, ED 0.8 cm 0.6 - GLENDY, Vmax 1.14 cm^2 ----- 1.0 PW/ID, ED 0.22 -------- Mitral valve Value Ref E', lat edward, TDI 16.7 cm/sec >=10.0 Peak E 1.12 m/sec -- --- E/e', lat edward, TDI 7 -------- Decel time 183 ms ----- E', med edward, TDI 8.5 cm/sec >=7.0 Peak grad, D 5.0 mm Hg -- --- E/e', med edward, TDI 13 -------- E', avg, TDI 12.6 cm/sec -------- Pulmonic valve Value Ref E/e', avg, TDI 9 <=14 Peak v, S 0.57 m/sec -- --- Peak grad, S 1.0 mm Hg ----- LVOT Value Ref Diam, S 2.10 cm -------- Tricuspid valve Value Ref Area 3.5 cm^2 -------- TR peak v 2.64 m/sec <=2.8 Peak daren, S 0.88 m/sec -------- Peak RV-RA grad, S 28 mm Hg ----- VTI, S 14.6 cm -------- Max TR daren 2.51 m/sec ----- Mean grad, S 1 mm Hg -------- SV 51 ml -------- Aortic root Value Ref SV/bsa 26 ml/m^2 -------- Root diam 3.4 cm <4.1 Root max diam, ED 3.4 cm <4.1 Ventricular septum Value Ref IVS, ED (H) 1.3 cm 0.6 - Ascending aorta Value Ref 1.0 AAo AP diam, S 3.5 cm ----- AAo AP diam/bsa, S 1.8 cm/m^2 ----- Right ventricle Value Ref TERI, LAX 3.8 cm -------- Aortic arch Value Ref TERI minor ax, A4C (H) 4.1 cm 1.9 - Arch diam 2.4 cm ----- mid 3.5 Decending aorta Value Ref Left atrium Value Ref Leonides peak daren 0.62 m/sec ----- ML dim, A4C 5.0 cm -------- SI dim, A4C 7.1 cm -------- Vol/bsa, ES, 1-p (H) 60 ml/m^2 12 - 37 A4C Vol/bsa, ES, A/L (H) 63 ml/m^2 16 - 34 Right atrium Value Ref SI dim, ES (H) 6.2 cm 3.4 - 5.3 ML dim, ES, A4C 4.0 cm 2.6 - 4.4 SI dim, ES, A4C (H) 6.2 cm 3.4 - 5.3 SI dim/bsa, ES, A4C (H) 3.1 cm/m^2 1.8 - 3.0 Legend: (L) and (H) chris values outside specified reference range. Prepared and electronically signed by Dmitriy Caldwell MD 04/15/2019 17:15
[2019-04-15] MEDS: Atorvastatin* 20 MG TAB PO SCH (18:10)
--- NOTE | 2019-04-15 20:16 | CONSULT ---
Subjective Date of Service: 04/15/19 Interval History: Admission Date: 04/14/19 Consult date 04/15/2019 Service: Hospitalist PMD: Dr. Tamez CC: Fatigue Reason for consult: Elevated troponin level. HISTORY OF PRESENT ILLNESS: Mr. Freeman is a 68-year-old man with a history as below presents with 1-2 weeks of weakness and malaise. He had been sleeping a lot and later incontinent and difficulty getting out of his chair. He was found to be febrile, septic with LISBETH and an abnormal troponin level. He states up to a few weeks ago he had been feeling well. 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 Even during the time of malaise , he had no chest discomfort or dyspnea. His being evaluated and treated by Hospitalist service and ID for sepsis PAST MEDICAL HISTORY: 1. 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 Vascular dementia. 3. Type 2 diabetes. 4. Atrial flutter and fibrillation 5. DVT, PE following open heart surgery 6. Hepatitis C - not on treatment. 7. Diabetic neuropathy. 8. Coronary artery disease s/p CABG 2003 9. Stage III chronic kidney disease. 10. Hypertension. PAST SURGICAL HISTORY: 1. Aortic valve replacement in 2011. 2. CABG in 2003. 3. Inguinal hernia repair. ALLERGIES: HEPARIN. FAMILY HISTORY: Mom at the age of 89 of old age. Dad at the age of 60 of an IA. SOCIAL HISTORY: The patient does not smoke. He drinks alcohol on occasion. He continues to smoke marijuana a couple times weekly. 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 He is . He has 1 child. He indicates that his is his health care proxy. Medications Active Medications: Acetaminophen (Tylenol Tab*) 650 mg PO Q4H PRN PRN Reason: PAIN or FEVER Last Admin: 04/15/19 09:28 Dose: 650 mg Apixaban (Eliquis*) 5 mg PO BID [facility] Last Admin: 04/15/19 09:27 Dose: 5 mg Aspirin (Aspirin Ec Tab*) 81 mg PO DAILY [facility] Last Admin: 04/15/19 09:27 Dose: 81 mg Atorvastatin Calcium (Lipitor*) 20 mg PO 1700 [facility] Last Admin: 04/15/19 18:10 Dose: 20 mg Dextrose (D50w Syringe 50 Ml*) 12.5 gm IV PUSH .FOR FS < 60 - SS PRN PRN Reason: FS < 60 Sodium Chloride (Ns 0.9% 1000 Ml) 1,000 mls @ 100 mls/hr IV PER RATE [facility] Last Admin: 04/15/19 09:29 Dose: 100 mls/hr Ceftriaxone Sodium 1 gm/ (Sodium Chloride) 50 mls @ 200 mls/hr IVPB Q24H [facility] Vancomycin HCl 1,000 mg/ (Sodium Chloride) 250 mls @ 166.667 mls/hr IVPB Q12H [facility] Insulin Human Lispro (Humalog*) 0 units SUBCUT ACHS [facility]; Protocol Last Admin: 04/15/19 18:10 Dose: 4 unit Losartan Potassium (Cozaar Tab*) 25 mg PO DAILY [facility] Last Admin: 04/15/19 09:27 Dose: 25 mg Memantine (Namenda Tab*) 5 mg PO BID [facility] Last Admin: 04/15/19 09:28 Dose: 5 mg Pharmacy Consult (Vancomycin Per Pharmacy*) 1 note FOLLOW UP .VANC PER PHARMACY [facility]; Protocol Pharmacy Profile Note (Vancomycin Trough Check) 1 note FOLLOW UP 1230 ONE Stop: 04/17/19 12:31 Home Medications: Losartan Potassium 25 mg PO DAILY 01/23/19 [History Confirmed 04/14/19] Memantine TAB* [Namenda TAB*] 5 mg PO BID 01/27/19 [History Confirmed 04/14/19] Apixaban* [Eliquis*] 5 mg PO BID #60 tab 02/04/19 [Rx Confirmed 04/14/19] Aspirin EC TAB* [Ecotrin EC Low Dose 81 MG*] 81 mg PO DAILY tab.ec 02/04/19 [ Rx Confirmed 04/14/19] Atorvastatin* [Lipitor 20 MG*] 20 mg PO 1700 #30 tab 02/04/19 [Rx Confirmed ] glyBURIDE TAB* [Diabeta TAB*] 2.5 mg PO TID WITH MEALS tab 02/04/19 [Rx Confirmed 04/14/19] Review of Systems - Measurements Intake and Output: Intake and Output Last 24 Hours 04/13/19 04/14/19 04/15/19 04/16/19 06:59 06:59 06:59 06:59 Intake Total 3802 1037 Output Total 0 Balance 3802 1037 Weight 179 lb 4.8 oz Intake: IV Fluids 3802 781 NS (0.9%) 787 781 IVPB 256 Vancomycin 256 Oral 0 0 Output: Urine 0 Other: Estimated Stool Amount Medium - Review of Systems Constitutional Symptoms: Positive: Weakness, Fatigue Dermatology: Positive: Rash, Skin Lesions HEENT: Negative: Change in Hearing, Vertigo Eyes: Negative: Normal, Change in Vision, Double Vision, Eye Pain, Glaucoma, Cataracts, Contacts or Glasses, Other Thyroid: Negative: Weight Loss, Weight Gain Pulmonary: Negative: Respiratory Distress, Shortness of Breath Cardiology: Negative: Chest Pain, Shortness of Breath, Palpitations, Swelling of Ankles, Edema, Syncope, Paroxysmal Nocturnal Dyspnea, Orthopnea Gastroenterology: Negative: Abdominal Pain, Nausea, Vomiting, Anorexia, Blood in Stools, Haematemesis, Melena Genital - Urinary: Positive: Polyuria Negative: Hematuria Musculoskeletal: Negative: Joint Pain, Joint Stiffness Endocrinology: Positive: Diabetes, Polyuria Negative: Obesity, Pituitary Disease Neurology: Positive: Hx of Stroke\TIA Negative: Diplopia, Dizziness, Hx Seizures Psychiatry: Negative: Unusual Anxiety, Suicidal Ideation Allergic/Immunologic: Negative: Hx HIV, Immunocompromise Review of Systems Statement: All other review of systems negative, unless stated above. Objective Vital Signs: Temp Pulse Resp BP Pulse Ox 98.7 F 104 18 98/62 96 04/15/19 11:52 04/15/19 11:52 04/15/19 11:52 04/15/19 12:13 04/15/19 11:52 Oxygen Devices in Use Now: None Appearance: patient appears fatigued but not toxic Ears/Nose/Mouth/Throat: Clear Oropharnyx, Mucous Membranes Moist Neck: NL Appearance and Movements; NL JVP, Trachea Midline Respiratory: Symmetrical Chest Expansion and Respiratory Effort, Clear to Auscultation Cardiovascular: No Edema, - - irregularly irregular, sternotomy scar noted, no more than 1/6 murmur noted Abdominal: NL Sounds; No Tenderness; No Distention Extremities: No Edema Skin: - - + diffuse patchy skin rash Laboratory Results: 04/15/19 06:46 04/15/19 06:46 Total Bilirubin 1.10 mg/dL (0.2-1.0) H 04/14/19 17:30 AST 28 U/L (13-39) 04/14/19 17:30 ALT 34 U/L (7-52) 04/14/19 17:30 Alkaline Phosphatase 72 U/L (34-104) 04/14/19 17:30 Total Protein 7.2 g/dL (6.4-8.9) 04/14/19 17:30 Albumin 3.3 g/dL (3.2-5.2) 04/14/19 17:30 Globulin 3.9 g/dL (2-4) 04/14/19 17:30 Albumin/Globulin Ratio 0.8 (1-3) L 04/14/19 17:30 TSH 2.63 mcIU/mL (0.34-5.60) 04/14/19 17:30 04/14/19 04/14/19 04/14/19 17:30 20:08 23:39 Troponin I 0.31 H* 0.44 H* 0.68 H* 04/15/19 04/15/19 06:46 12:30 Troponin I 0.80 H* 1.00 H* Diagnostic Imaging: Transthoracic Echocardiogram 04/14/2019 Conclusions Summary: 1. Left ventricle: The estimated ejection fraction is 55-60%. 2. Right ventricle: The cavity size is mildly reduced. Systolic function is mildly to moderately reduced. 3. Ventricular septum: Ventricular septal wall motion has a postoperative appearance. Otherwise wall motion appears normal. 4. Aortic valve: There is a bioprosthetic valve. The findings are consistent with very mild stenosis. The peak systolic velocity is 2.68 m/sec. The mean systolic gradient is 15.0 mm Hg. The LVOT to aortic valve VTI ratio is 0.33. 5. Pulmonary arteries: Systolic pressure is within the normal range. Recommendations: Compared to prior study from 12/2018, mostsignificant change is right ventricle size and function previously reported normal. EKG Data: ekg on admission: afib 111 bpm, old IWMI, non-specific st/t changes, repeat this AM no significant changes compared to 01/23/2019, previously appeared atrial flutter 72 bpm, st/t changes not previously appreciated at a rate of 72 bpm telemetry: pvc's, no arrhythmias other than atrial fibrillation Assessment/Plan 1. Sepsis - Evaluation and treatment as per ID/Hospitalist service 2. Hx of CAD s/p CABG 3. Hx bioprosthetic AVR 4. Atrial fibrillation and flutter 5. Hx CVA 6. DM 7. CKD 8. Vascular dementia by history Patients clinical presentation is not consistent with an acute type 1 (plaque disruption) IA of a [place] artery or bypass graft. Presentation is most consistent with a type 2 IA related to supply/demand mismatch in the setting of LISBETH +/- direct myocyte injury from sepsis. - Continue aspirin and eliquis - Continue statin - Patient has been intolerant (severe fatigue) to metoprolol in the past. If his atrial fibrillation continues with elevated heart rate despite sepsis treatment we will consider adding diltiazem - I added a ck and ck-mb to tomorrow mornings labs (ordered) which would provide a better estimate of myocyte injury/necrosis in the setting of renal insufficiency. - Consider blood cultures if not already obtained - He has no respiratory symptoms. I am not certain that a chest xray is indicated in this situation Thank you for allowing me to participate in the cardiovascular care of this patient. Please do not hesitate to contact me with questions or concerns.
[2019-04-15] MEDS: cefTRIAXone(*) 1 GM in NS 0.9% 50 ML* 50 ML IVPB SCH (20:20)
[2019-04-15 22:32] LABS: Troponin I 0.84 ng/mL (<0.04)
[2019-04-16] MEDS: Vancomycin(*) 1,000 MG in NS 0.9% 250 ML* 250 ML IVPB SCH ×2 (00:19→13:19)
[2019-04-16 06:49] LABS: ABS Eosinophils 0.1 10^3/ul (0-0.6); ABS Lymphocytes 0.8 10^3/ul (1.0-4.8); ABS Monocytes 0.4 10^3/ul (0-0.8); ABS Neutrophils 8.6 10^3/ul (1.5-7.7); Eosinophil % 1.3 %; Hematocrit 37 % (42-52); Hemoglobin 12.5 g/dL (14.0-18.0); Mean Corpuscular HGB Conc 34 g/dL (31-36); Mean Corpuscular Hemoglobin 30 pg (27-31); Mean Corpuscular Volume 87 fL (80-94); Mean Platelet Volume 8.6 fL (7.4-10.4); Platelet Count 216 10^3/uL (150-450); Red Blood Count 4.19 10^6 /uL (4.18-5.48); Red Cell Distribution Width 14 % (10-15); White Blood Count 9.9 10^3/uL (3.5-10.8)
[2019-04-16 07:08] LABS: BUN/Creatinine Ratio 21.5 (8-20); Calcium 7.9 mg/dL (8.6-10.3); EGFR African American 58.7 (>60); EGFR Non-African American 48.5 (>60); Potassium 3.9 mmol/L (3.5-5.0)
[2019-04-16 07:09] LABS: CKMB ng/mL 9.1 ng/mL (0.6-6.3)
[2019-04-16] MEDS: Insulin LISPRO* 1 UNITS UNIT SUBCUT SCH ×4 (09:30→21:00)
[2019-04-16] MEDS: Memantine TAB* 5 MG PO SCH ×2 (09:30→19:43)
[2019-04-16] MEDS: Losartan TAB* 25 MG PO SCH (09:30)
[2019-04-16] MEDS: Aspirin EC TAB* 81 MG TAB.EC PO SCH (09:30)
[2019-04-16] MEDS: Apixaban* 5 MG TAB PO SCH ×2 (09:30→19:43)
--- NOTE | 2019-04-16 09:49 | PN ---
Subjective Date of Service: 04/16/19 Interval History: f/u type 2 TX Patient denies any CP or dyspnea Feeling better overall tele: afib rate 90-100's at rest, 12 beat nsvt Medications Active Medications: Acetaminophen (Tylenol Tab*) 650 mg PO Q4H PRN PRN Reason: PAIN or FEVER Last Admin: 04/15/19 09:28 Dose: 650 mg Apixaban (Eliquis*) 5 mg PO BID [facility] Last Admin: 04/16/19 09:30 Dose: 5 mg Aspirin (Aspirin Ec Tab*) 81 mg PO DAILY [facility] Last Admin: 04/16/19 09:30 Dose: 81 mg Atenolol (Tenormin Tab*) 25 mg PO DAILY [facility] Atorvastatin Calcium (Lipitor*) 20 mg PO 1700 [facility] Last Admin: 04/15/19 18:10 Dose: 20 mg Dextrose (D50w Syringe 50 Ml*) 12.5 gm IV PUSH .FOR FS < 60 - SS PRN PRN Reason: FS < 60 Sodium Chloride (Ns 0.9% 1000 Ml) 1,000 mls @ 100 mls/hr IV PER RATE [facility] Last Admin: 04/15/19 09:29 Dose: 100 mls/hr Ceftriaxone Sodium 1 gm/ (Sodium Chloride) 50 mls @ 200 mls/hr IVPB Q24H [facility] Last Admin: 04/15/19 20:20 Dose: 200 mls/hr Vancomycin HCl 1,000 mg/ (Sodium Chloride) 250 mls @ 166.667 mls/hr IVPB Q12H [facility] Last Admin: 04/16/19 00:19 Dose: 166.667 mls/hr Insulin Human Lispro (Humalog*) 0 units SUBCUT ACHS [facility]; Protocol Last Admin: 04/16/19 09:30 Dose: 1 unit Losartan Potassium (Cozaar Tab*) 25 mg PO DAILY [facility] Last Admin: 04/16/19 09:30 Dose: 25 mg Memantine (Namenda Tab*) 5 mg PO BID [facility] Last Admin: 04/16/19 09:30 Dose: 5 mg Pharmacy Consult (Vancomycin Per Pharmacy*) 1 note FOLLOW UP .VANC PER PHARMACY [facility]; Protocol Pharmacy Profile Note (Vancomycin Trough Check) 1 note FOLLOW UP 1230 ONE Stop: 04/17/19 12:31 Objective Vital Signs: Temp Pulse Resp BP Pulse Ox 98.5 F 97 16 100/59 99 04/16/19 06:36 04/16/19 06:36 04/16/19 07:59 04/16/19 06:36 04/16/19 06:36 Oxygen Devices in Use Now: None Appearance: nad, pleasant Ears/Nose/Mouth/Throat: Clear Oropharnyx, Mucous Membranes Moist Neck: NL Appearance and Movements; NL JVP, Trachea Midline Respiratory: Symmetrical Chest Expansion and Respiratory Effort, Clear to Auscultation Cardiovascular: No Edema, - - irregularly irregular, sternotomy scar noted, no more than 1/6 murmur noted Abdominal: NL Sounds; No Tenderness; No Distention Extremities: No Edema Skin: No Rash or Ulcers, - Neurological: Alert and Oriented x 3 Laboratory Results: 04/16/19 05:25 04/16/19 05:25 Total Bilirubin 1.10 mg/dL (0.2-1.0) H 04/14/19 17:30 AST 28 U/L (13-39) 04/14/19 17:30 ALT 34 U/L (7-52) 04/14/19 17:30 Alkaline Phosphatase 72 U/L (34-104) 04/14/19 17:30 CK-MB (CK-2) 9.1 ng/mL (0.6-6.3) H 04/16/19 05:25 Total Protein 7.2 g/dL (6.4-8.9) 04/14/19 17:30 Albumin 3.3 g/dL (3.2-5.2) 04/14/19 17:30 Globulin 3.9 g/dL (2-4) 04/14/19 17:30 Albumin/Globulin Ratio 0.8 (1-3) L 04/14/19 17:30 TSH 2.63 mcIU/mL (0.34-5.60) 04/14/19 17:30 04/14/19 04/14/19 04/14/19 17:30 20:08 23:39 Troponin I 0.31 H* 0.44 H* 0.68 H* 04/15/19 04/15/19 04/15/19 06:46 12:30 16:35 Troponin I 0.80 H* 1.00 H* 0.84 H* ck-mb this AM 9.0 Diagnostic Imaging: Transthoracic Echocardiogram 04/14/2019 Conclusions Summary: 1. Left ventricle: The estimated ejection fraction is 55-60%. 2. Right ventricle: The cavity size is mildly reduced. Systolic function is mildly to moderately reduced. 3. Ventricular septum: Ventricular septal wall motion has a postoperative appearance. Otherwise wall motion appears normal. 4. Aortic valve: There is a bioprosthetic valve. The findings are consistent with very mild stenosis. The peak systolic velocity is 2.68 m/sec. The mean systolic gradient is 15.0 mm Hg. The LVOT to aortic valve VTI ratio is 0.33. 5. Pulmonary arteries: Systolic pressure is within the normal range. Recommendations: Compared to prior study from 12/2018, most significant change is right ventricle size and function previously reported normal. EKG Data: ekg on admission: afib 111 bpm, old IWMI, non-specific st/t changes, repeat this AM no significant changes compared to 01/23/2019, previously appeared atrial flutter 72 bpm, st/t changes not previously appreciated at a rate of 72 bpm telemetry: pvc's, no arrhythmias other than atrial fibrillation Assessment/Plan 1. Sepsis - Evaluation and treatment as per ID/Hospitalist service 2. Hx of CAD s/p CABG 3. Hx bioprosthetic AVR 4. Atrial fibrillation and flutter 5. Hx CVA 6. DM 7. CKD 8. Vascular dementia by history 9. Type 2 TX/Myocyte injury - secondary to #1 - Continue aspirin and eliquis - Continue statin - Patient has been intolerant (severe fatigue) to metoprolol in the past. Given arrhythmia and heart rate will trial atenolol 25 mg po daily less likely to cause [employer] side effects, will use cautiously in setting of renal dysfunction and continue monitoring Thank you for allowing me to participate in the cardiovascular care of this patient. Please do not hesitate to contact me with questions or concerns.
[2019-04-16] MEDS: Atenolol TAB* 25 MG PO SCH (10:47)
[2019-04-16] MEDS: NS 0.9% 1000 ML** 1,000 ML IV SCH (10:48)
--- NOTE | 2019-04-16 14:24 | PN ---
Subjective Date of Service: 04/16/19 Interval History: Mr. Freeman is feeling a bit better today overall. Malaise has not resolved, but is improving. Joint aches also improved. He was able to eat breakfast and has been drinking a lot of water. Denies CP, SOB, N/V, diaphoresis. No concerns from nursing. Family History: Unchanged from Admission Social History: Unchanged from Admission Past Medical History: Unchanged from Admission Objective Active Medications: Acetaminophen (Tylenol Tab*) 650 mg PO Q4H PRN PAIN or FEVER Apixaban (Eliquis*) 5 mg PO BID [facility] Aspirin (Aspirin Ec Tab*) 81 mg PO DAILY [facility] Atenolol (Tenormin Tab*) 25 mg PO DAILY [facility] Atorvastatin Calcium (Lipitor*) 20 mg PO 1700 [facility] Dextrose (D50w Syringe 50 Ml*) 12.5 gm IV PUSH .FOR FS < 60 - SS PRN FS < 60 Sodium Chloride (Ns 0.9% 1000 Ml) 1,000 mls @ 100 mls/hr IV PER RATE [facility] Ceftriaxone Sodium 1 gm/ (Sodium Chloride) 50 mls @ 200 mls/hr IVPB Q24H [facility] Vancomycin HCl 1,000 mg/ (Sodium Chloride) 250 mls @ 166.667 mls/hr IVPB Q12H [facility] Insulin Human Lispro (Humalog*) 0 units SUBCUT ACHS [facility]; Protocol Losartan Potassium (Cozaar Tab*) 25 mg PO DAILY [facility] Memantine (Namenda Tab*) 5 mg PO BID [facility] Vital Signs - 8 hr 04/16/19 04/16/19 04/16/19 06:36 07:59 10:47 Temperature 98.5 F Pulse Rate 97 Respiratory 18 16 Rate Blood Pressure 100/59 106/69 (mmHg) O2 Sat by Pulse 99 Oximetry 04/16/19 11:48 Temperature 97.7 F Pulse Rate 88 Respiratory 18 Rate Blood Pressure 94/58 (mmHg) O2 Sat by Pulse 98 Oximetry Oxygen Devices in Use Now: None Appearance: Elderly male laying in bed in NAD Eyes: No Scleral Icterus Ears/Nose/Mouth/Throat: Mucous Membranes Moist Neck: NL Appearance and Movements; NL JVP, Trachea Midline Respiratory: Symmetrical Chest Expansion and Respiratory Effort, Clear to Auscultation Cardiovascular: NL Sounds; No Murmurs; No JVD, - - Irregular Abdominal: NL Sounds; No Tenderness; No Distention Skin: - - Diffuse erythematous rash, improving Neurological: Alert and Oriented x 3 - Forgetful Lines/Tubes/Other Access: Clean, Dry and Intact Peripheral IV Nutrition: Taking PO's Result Diagrams: 04/16/19 05:25 04/16/19 05:25 Assess/Plan/Problems-Billing Assessment: Mr. Freeman is a 68 yo M with PMH of CVA, dementia, DM2, aflutter, DVT/PE, CKD 3, HTN, CAD, and hep C; who presented to the ED with c/o malaise and was found to meet severe sepsis criteria with suspected source being Lyme. - Patient Problems (1) Disseminated Lyme disease Code(s): A69.20 - LYME DISEASE, UNSPECIFIED Comment: - Presenting with fever, erythematous rash, diffuse joint pain - Lyme serology positive - Appreciate ID consult; recommends blood cultures and TTE d/t history of valve replacement - Echo unremarkable for vegetations - Continue ceftriaxone (2) Sepsis Comment: - Resolved - Met criteria on admission with leukocytosis, fever, tachycardia; source is Lyme - Blood cultures negative to date - Plan as above (3) Elevated troponin Code(s): R74.8 - ABNORMAL LEVELS OF OTHER SERUM ENZYMES Comment: - Asymptomatic - No EKG changes - Appreciate Cardiology consult; demand ishemia, recommends low dose beta ramses - Continue atenolol per Cardiology (4) Acute on chronic renal failure Code(s): N17.9 - ACUTE KIDNEY FAILURE, UNSPECIFIED; N18.9 - CHRONIC KIDNEY DISEASE, UNSPECIFIED Comment: - Resolved, creatinine back to baseline - Baseline CKD stage 3 - Pre-renal, secondary to hypovolemia (5) History of CVA (cerebrovascular accident) Code(s): Z86.73 - PRSNL HX OF TIA (TIA), AND CEREB INFRC W/O RESID DEFICITS Comment: - Continue Eliquis, aspirin, atorvastatin (6) Atrial flutter Code(s): I48.92 - UNSPECIFIED ATRIAL FLUTTER Comment: - Mild tachycardia on admission secondary to sepsis, now resolved and rate controlled - Continue Eliquis (7) Diabetes Code(s): E11.9 - TYPE 2 DIABETES MELLITUS WITHOUT COMPLICATIONS Comment: - Moderate glucose control - Continue Lispro SS; resume glyburide as PO intake has improved (8) HTN (hypertension) Code(s): I10 - ESSENTIAL (PRIMARY) HYPERTENSION Comment: - Normotensive, SBP 90-100s - Continue losartan (9) CAD (coronary artery disease) Code(s): I25.10 - ATHSCL HEART DISEASE OF [place] CORONARY ARTERY W/O ANG PCTRS Comment: - Continue aspirin, atorvastatin, Eliquis, atenolol (10) Vascular dementia Code(s): F01.50 - VASCULAR DEMENTIA WITHOUT BEHAVIORAL DISTURBANCE Comment: - Continue Namenda (11) DVT prophylaxis Comment: - Eliquis (12) Full code status Code(s): Z78.9 - OTHER SPECIFIED HEALTH STATUS Comment: Status and Disposition: Inpatient. Anticipate d/c home when medically stable, timeframe unknown. Attending: Rhett Downing
[2019-04-16] MEDS: Atorvastatin* 20 MG TAB PO SCH (17:17)
[2019-04-16] MEDS: glyBURIDE TAB* 2.5 MG PO SCH (17:17)
[2019-04-16] MEDS: cefTRIAXone(*) 1 GM in NS 0.9% 50 ML* 50 ML IVPB SCH (19:43)
[2019-04-17] MEDS: Vancomycin(*) 1,000 MG in NS 0.9% 250 ML* 250 ML IVPB SCH ×2 (01:16→14:25)
[2019-04-17 06:23] LABS: ABS Basophils 0.1 10^3/ul (0-0.2); ABS Eosinophils 0.1 10^3/ul (0-0.6); ABS Monocytes 0.5 10^3/ul (0-0.8); ABS Neutrophils 5.3 10^3/ul (1.5-7.7); Eosinophil % 1.9 %; Hematocrit 37 % (42-52); Hemoglobin 12.4 g/dL (14.0-18.0); Lymphocyte % 14.4 %; Mean Corpuscular HGB Conc 33 g/dL (31-36); Mean Corpuscular Hemoglobin 29 pg (27-31); Mean Corpuscular Volume 87 fL (80-94); Mean Platelet Volume 8.2 fL (7.4-10.4); Nucleated Red Blood Cells % 0.1; Platelet Count 237 10^3/uL (150-450); Red Blood Count 4.28 10^6 /uL (4.18-5.48); Red Cell Distribution Width 14 % (10-15); White Blood Count 7.1 10^3/uL (3.5-10.8)
[2019-04-17 06:38] LABS: BUN/Creatinine Ratio 25.6 (8-20); Calcium 7.9 mg/dL (8.6-10.3); EGFR African American 64.3 (>60); EGFR Non-African American 53.2 (>60); Potassium 4.2 mmol/L (3.5-5.0)
[2019-04-17] MEDS: Insulin LISPRO* 1 UNITS UNIT SUBCUT SCH ×4 (08:21→20:23)
[2019-04-17] MEDS: Apixaban* 5 MG TAB PO SCH ×2 (08:21→19:43)
[2019-04-17] MEDS: glyBURIDE TAB* 2.5 MG PO SCH ×3 (08:21→17:44)
[2019-04-17] MEDS: Memantine TAB* 5 MG PO SCH ×2 (08:21→19:43)
[2019-04-17] MEDS: Losartan TAB* 25 MG PO SCH (08:21)
[2019-04-17] MEDS: Aspirin EC TAB* 81 MG TAB.EC PO SCH (08:22)
[2019-04-17] MEDS: Atenolol TAB* 25 MG PO SCH (08:22)
--- NOTE | 2019-04-17 09:18 | PN ---
Subjective Date of Service: 04/17/19 Interval History: f/u type 2 [place] Patient denies any CP or dyspnea fatigued, today, thinks might be atenolol, asking to change to at night afib now rate controlled, no further ventricular arrhythmias Medications Active Medications: Acetaminophen (Tylenol Tab*) 650 mg PO Q4H PRN PRN Reason: PAIN or FEVER Last Admin: 04/15/19 09:28 Dose: 650 mg Apixaban (Eliquis*) 5 mg PO BID [facility] Last Admin: 04/17/19 08:21 Dose: 5 mg Aspirin (Aspirin Ec Tab*) 81 mg PO DAILY [facility] Last Admin: 04/17/19 08:22 Dose: 81 mg Atenolol (Tenormin Tab*) 25 mg PO BEDTIME [facility] Atorvastatin Calcium (Lipitor*) 20 mg PO 1700 [facility] Last Admin: 04/16/19 17:17 Dose: 20 mg Dextrose (D50w Syringe 50 Ml*) 12.5 gm IV PUSH .FOR FS < 60 - SS PRN PRN Reason: FS < 60 Glyburide (Diabeta Tab*) 2.5 mg PO TID WITH MEALS [facility] Last Admin: 04/17/19 08:21 Dose: 2.5 mg Ceftriaxone Sodium 1 gm/ (Sodium Chloride) 50 mls @ 200 mls/hr IVPB Q24H [facility] Last Admin: 04/16/19 19:43 Dose: 200 mls/hr Vancomycin HCl 1,000 mg/ (Sodium Chloride) 250 mls @ 166.667 mls/hr IVPB Q12H [facility] Last Admin: 04/17/19 01:16 Dose: 166.667 mls/hr Insulin Human Lispro (Humalog*) 0 units SUBCUT ACHS [facility]; Protocol Last Admin: 04/17/19 08:21 Dose: 1 unit Losartan Potassium (Cozaar Tab*) 25 mg PO DAILY [facility] Last Admin: 04/17/19 08:21 Dose: 25 mg Memantine (Namenda Tab*) 5 mg PO BID [facility] Last Admin: 04/17/19 08:21 Dose: 5 mg Pharmacy Consult (Vancomycin Per Pharmacy*) 1 note FOLLOW UP .VANC PER PHARMACY [facility]; Protocol Pharmacy Profile Note (Vancomycin Trough Check) 1 note FOLLOW UP 1230 ONE Stop: 04/17/19 12:31 Objective Vital Signs: Temp Pulse Resp BP Pulse Ox 98.6 F 78 20 100/62 98 04/17/19 08:11 04/17/19 08:11 04/17/19 08:11 04/17/19 08:11 04/17/19 08:11 Oxygen Devices in Use Now: None Appearance: nad, pleasant Ears/Nose/Mouth/Throat: Clear Oropharnyx, Mucous Membranes Moist Neck: NL Appearance and Movements; NL JVP, Trachea Midline Respiratory: Symmetrical Chest Expansion and Respiratory Effort, Clear to Auscultation Cardiovascular: No Edema, - - irregularly irregular, sternotomy scar noted, no more than 1/6 murmur noted Abdominal: NL Sounds; No Tenderness; No Distention Extremities: No Edema Skin: No Rash or Ulcers, - Neurological: Alert and Oriented x 3 Laboratory Results: 04/17/19 06:03 04/17/19 06:03 Total Bilirubin 1.10 mg/dL (0.2-1.0) H 04/14/19 17:30 AST 28 U/L (13-39) 04/14/19 17:30 ALT 34 U/L (7-52) 04/14/19 17:30 Alkaline Phosphatase 72 U/L (34-104) 04/14/19 17:30 CK-MB (CK-2) 9.1 ng/mL (0.6-6.3) H 04/16/19 05:25 Total Protein 7.2 g/dL (6.4-8.9) 04/14/19 17:30 Albumin 3.3 g/dL (3.2-5.2) 04/14/19 17:30 Globulin 3.9 g/dL (2-4) 04/14/19 17:30 Albumin/Globulin Ratio 0.8 (1-3) L 04/14/19 17:30 TSH 2.63 mcIU/mL (0.34-5.60) 04/14/19 17:30 04/14/19 04/14/19 04/14/19 17:30 20:08 23:39 Troponin I 0.31 H* 0.44 H* 0.68 H* 04/15/19 04/15/19 04/15/19 06:46 12:30 16:35 Troponin I 0.80 H* 1.00 H* 0.84 H* Diagnostic Imaging: Transthoracic Echocardiogram 04/14/2019 Conclusions Summary: 1. Left ventricle: The estimated ejection fraction is 55-60%. 2. Right ventricle: The cavity size is mildly reduced. Systolic function is mildly to moderately reduced. 3. Ventricular septum: Ventricular septal wall motion has a postoperative appearance. Otherwise wall motion appears normal. 4. Aortic valve: There is a bioprosthetic valve. The findings are consistent with very mild stenosis. The peak systolic velocity is 2.68 m/sec. The mean systolic gradient is 15.0 mm Hg. The LVOT to aortic valve VTI ratio is 0.33. 5. Pulmonary arteries: Systolic pressure is within the normal range. Recommendations: Compared to prior study from 12/2018, most significant change is right ventricle size and function previously reported normal. EKG Data: ekg on admission: afib 111 bpm, old IWMI, non-specific st/t changes, repeat this AM no significant changes compared to 01/23/2019, previously appeared atrial flutter 72 bpm, st/t changes not previously appreciated at a rate of 72 bpm telemetry: pvc's, no arrhythmias other than atrial fibrillation Assessment/Plan 1. Sepsis - Evaluation and treatment as per ID/Hospitalist service 2. Hx of CAD s/p CABG 3. Hx bioprosthetic AVR 4. Atrial fibrillation and flutter 5. Hx CVA 6. DM 7. CKD 8. Vascular dementia by history 9. 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 Will change atenolol 25 mg po to bedtime (ordered) to see if better tolerated Thank you for allowing me to participate in the cardiovascular care of this patient. Please do not hesitate to contact me with questions or concerns.
[2019-04-17] MEDS ORDERED: Vancomycin Trough Check NOTE FOLLOW UP ONE (12:30)
--- NOTE | 2019-04-17 15:12 | PN ---
Subjective Date of Service: 04/17/19 Interval History: Patient reports stiffness has improved. He has walked to bathroom with walker, wants to walk further. Eating well, denies constipation. No other complaints. Family History: Unchanged from Admission Social History: Unchanged from Admission Past Medical History: Unchanged from Admission Objective Active Medications: Acetaminophen (Tylenol Tab*) 650 mg PO Q4H PRN PRN Reason: PAIN or FEVER Last Admin: 04/15/19 09:28 Dose: 650 mg Apixaban (Eliquis*) 5 mg PO BID [facility] Last Admin: 04/17/19 08:21 Dose: 5 mg Aspirin (Aspirin Ec Tab*) 81 mg PO DAILY [facility] Last Admin: 04/17/19 08:22 Dose: 81 mg Atenolol (Tenormin Tab*) 25 mg PO BEDTIME [facility] Atorvastatin Calcium (Lipitor*) 20 mg PO 1700 [facility] Last Admin: 04/16/19 17:17 Dose: 20 mg Dextrose (D50w Syringe 50 Ml*) 12.5 gm IV PUSH .FOR FS < 60 - SS PRN PRN Reason: FS < 60 Glyburide (Diabeta Tab*) 2.5 mg PO TID WITH MEALS [facility] Last Admin: 04/17/19 12:31 Dose: 2.5 mg Ceftriaxone Sodium 1 gm/ (Sodium Chloride) 50 mls @ 200 mls/hr IVPB Q24H [facility] Last Admin: 04/16/19 19:43 Dose: 200 mls/hr Vancomycin HCl 750 mg/ Sodium (Chloride) 250 mls @ 166.667 mls/hr IVPB Q12H [facility] Insulin Human Lispro (Humalog*) 0 units SUBCUT ACHS [facility]; Protocol Last Admin: 04/17/19 12:30 Dose: 2 unit Losartan Potassium (Cozaar Tab*) 25 mg PO DAILY [facility] Last Admin: 04/17/19 08:21 Dose: 25 mg Memantine (Namenda Tab*) 5 mg PO BID [facility] Last Admin: 04/17/19 08:21 Dose: 5 mg Vital Signs - 8 hr 04/17/19 04/17/19 04/17/19 08:00 08:11 12:34 Temperature 37.0 C 36.6 C Pulse Rate 78 63 Respiratory 16 20 20 Rate Blood Pressure 100/62 93/60 (mmHg) O2 Sat by Pulse 98 99 Oximetry Oxygen Devices in Use Now: None Appearance: alert, no distress Eyes: No Scleral Icterus Ears/Nose/Mouth/Throat: NL Teeth, Lips, Gums Neck: NL Appearance and Movements; NL JVP Respiratory: Symmetrical Chest Expansion and Respiratory Effort Cardiovascular: NL Sounds; No Murmurs; No JVD Abdominal: NL Sounds; No Tenderness; No Distention Neurological: Alert and Oriented x 3 Lines/Tubes/Other Access: Clean, Dry and Intact Peripheral IV Nutrition: Taking PO's Result Diagrams: 04/17/19 06:03 04/17/19 06:03 Additional Lab and Data: Laboratory Tests 04/16/19 04/17/19 04/17/19 19:43 06:03 07:44 Glucose 130 H POC Glucose (mg/dL) 203 H 148 H Vancomycin Trough 04/17/19 04/17/19 11:09 12:31 Glucose POC Glucose (mg/dL) 183 H Vancomycin Trough 20.7 Microbiology and Other Data: Microbiology 04/14/19 19:28 Urine Urine Culture - Final No Growth (<1,000 CFU/mL) 04/15/19 12:30 Blood Venous Aerobic Blood Culture - Preliminary 04/15/19 12:30 Blood Venous Anaerobic Blood Culture - Preliminary No Growth Day 2 No Growth Day 2 04/15/19 12:30 Blood Venous Aerobic Blood Culture - Preliminary 04/15/19 12:30 Blood Venous Anaerobic Blood Culture - Preliminary No Growth Day 2 No Growth Day 2 Assess/Plan/Problems-Billing Assessment: Mr. Freeman is a 68 yo M with PMH of CVA, dementia, DM2, aflutter, DVT/PE, CKD 3, HTN, CAD, and hep C; who presented to the ED with c/o malaise and was found to meet severe sepsis criteria with suspected source being Lyme. - Patient Problems (1) Sepsis Current Visit: Yes Status: Acute Priority: High Comment: - Resolved - Met criteria on admission with leukocytosis, fever, tachycardia; source is Lyme - Blood cultures negative to date - will stop vanco tomorrow if blood cultures remain negative (2) Disseminated Lyme disease Current Visit: Yes Status: Acute Priority: Medium Code(s): A69.20 - LYME DISEASE, UNSPECIFIED SNOMED Code(s): 81395986 Comment: - Presenting with fever, erythematous rash, diffuse joint pain - Lyme serology positive - Will discuss discharge on oral doxycycline tomorrow with ID parts consultant. - Continue ceftriaxone for now (3) Atrial flutter Current Visit: Yes Status: Acute Priority: Medium Code(s): I48.92 - UNSPECIFIED ATRIAL FLUTTER SNOMED Code(s): 2553917 Comment: - Mild tachycardia on admission secondary to sepsis, now resolved and rate controlled - Continue Eliquis (4) DVT prophylaxis Current Visit: No Status: Acute Priority: Low Code(s): ULL9245 - SNOMED Code(s): 587672568 Comment: - Eliquis Status and Disposition: Inpatient. Anticipate d/c home tomorrow
[2019-04-17] MEDS: Atorvastatin* 20 MG TAB PO SCH (17:40)
[2019-04-17] MEDS: Vancomycin(*) 750 MG in NS 0.9% 250 ML* 250 ML IVPB SCH (18:17)
[2019-04-17] MEDS: cefTRIAXone(*) 1 GM in NS 0.9% 50 ML* 50 ML IVPB SCH (19:43)
[2019-04-18] MEDS ORDERED: Calcium Carbonate CHEW TAB* 500 MG (TUMS) PO PRN (00:09)
[2019-04-18 07:03] LABS: Hematocrit 38 % (42-52); Hemoglobin 12.8 g/dL (14.0-18.0); Mean Corpuscular HGB Conc 34 g/dL (31-36); Mean Corpuscular Hemoglobin 30 pg (27-31); Mean Corpuscular Volume 88 fL (80-94); Red Blood Count 4.34 10^6 /uL (4.18-5.48); Red Cell Distribution Width 14 % (10-15); White Blood Count 7.8 10^3/uL (3.5-10.8)
[2019-04-18 08:05] LABS: ABS Basophils 0.1 10^3/ul (0-0.2); ABS Eosinophils 0.1 10^3/ul (0-0.6); ABS Lymphocytes 1.1 10^3/ul (1.0-4.8); ABS Monocytes 0.4 10^3/ul (0-0.8); ABS Neutrophils 6.1 10^3/ul (1.5-7.7); Eosinophil % 1.6 %; Lymphocyte % 14.4 %; Nucleated Red Blood Cells % 0.1
[2019-04-18 08:52] LABS: Erythrocyte Sed Rate 15 mm/Hr (0-19)
--- NOTE | 2019-04-18 08:52 | PN ---
Subjective Date of Service: 04/18/19 Interval History: f/u type 2 [place] Patient denies any CP or dyspnea since yesterday: afib rate controlled, no further ventricular arrhythmias Medications Active Medications: Acetaminophen (Tylenol Tab*) 650 mg PO Q4H PRN PRN Reason: PAIN or FEVER Last Admin: 04/15/19 09:28 Dose: 650 mg Apixaban (Eliquis*) 5 mg PO BID [facility] Last Admin: 04/17/19 19:43 Dose: 5 mg Aspirin (Aspirin Ec Tab*) 81 mg PO DAILY [facility] Last Admin: 04/17/19 08:22 Dose: 81 mg Atenolol (Tenormin Tab*) 25 mg PO BEDTIME [facility] Atorvastatin Calcium (Lipitor*) 20 mg PO 1700 [facility] Last Admin: 04/17/19 17:40 Dose: 20 mg Calcium Carbonate (Tums*) 500 mg PO Q4H PRN PRN Reason: disocmfort Last Admin: 04/18/19 00:17 Dose: 500 mg Dextrose (D50w Syringe 50 Ml*) 12.5 gm IV PUSH .FOR FS < 60 - SS PRN PRN Reason: FS < 60 Glyburide (Diabeta Tab*) 2.5 mg PO TID WITH MEALS [facility] Last Admin: 04/17/19 17:44 Dose: 2.5 mg Ceftriaxone Sodium 1 gm/ (Sodium Chloride) 50 mls @ 200 mls/hr IVPB Q24H [facility] Last Admin: 04/17/19 19:43 Dose: 200 mls/hr Vancomycin HCl 750 mg/ Sodium (Chloride) 250 mls @ 166.667 mls/hr IVPB Q12H [facility] Last Admin: 04/17/19 18:17 Dose: 166.667 mls/hr Insulin Human Lispro (Humalog*) 0 units SUBCUT ACHS [facility]; Protocol Last Admin: 04/17/19 20:23 Dose: 6 unit Losartan Potassium (Cozaar Tab*) 25 mg PO DAILY [facility] Last Admin: 04/17/19 08:21 Dose: 25 mg Memantine (Namenda Tab*) 5 mg PO BID [facility] Last Admin: 04/17/19 19:43 Dose: 5 mg Pharmacy Consult (Vancomycin Per Pharmacy*) 1 note FOLLOW UP .VANC PER PHARMACY [facility]; Protocol Pharmacy Profile Note (Vancomycin Trough Check) 1 note FOLLOW UP ONCE ONE Stop: 04/19/19 05:31 Objective Vital Signs: Temp Pulse Resp BP Pulse Ox 97.5 F 51 15 107/68 98 04/18/19 08:15 04/18/19 08:15 04/18/19 08:15 04/18/19 08:15 04/18/19 08:15 Oxygen Devices in Use Now: None Appearance: nad, pleasant Ears/Nose/Mouth/Throat: Clear Oropharnyx, Mucous Membranes Moist Neck: NL Appearance and Movements; NL JVP, Trachea Midline Respiratory: Symmetrical Chest Expansion and Respiratory Effort, Clear to Auscultation Cardiovascular: No Edema, - - irregularly irregular, sternotomy scar noted, no more than 1/6 murmur noted Abdominal: NL Sounds; No Tenderness; No Distention Extremities: No Edema Skin: No Rash or Ulcers, - Neurological: Alert and Oriented x 3 Laboratory Results: 04/18/19 06:18 04/17/19 06:03 Total Bilirubin 1.10 mg/dL (0.2-1.0) H 04/14/19 17:30 AST 28 U/L (13-39) 04/14/19 17:30 ALT 34 U/L (7-52) 04/14/19 17:30 Alkaline Phosphatase 72 U/L (34-104) 04/14/19 17:30 CK-MB (CK-2) 9.1 ng/mL (0.6-6.3) H 04/16/19 05:25 Total Protein 7.2 g/dL (6.4-8.9) 04/14/19 17:30 Albumin 3.3 g/dL (3.2-5.2) 04/14/19 17:30 Globulin 3.9 g/dL (2-4) 04/14/19 17:30 Albumin/Globulin Ratio 0.8 (1-3) L 04/14/19 17:30 TSH 2.63 mcIU/mL (0.34-5.60) 04/14/19 17:30 04/14/19 04/14/19 04/14/19 17:30 20:08 23:39 Troponin I 0.31 H* 0.44 H* 0.68 H* 04/15/19 04/15/19 04/15/19 06:46 12:30 16:35 Troponin I 0.80 H* 1.00 H* 0.84 H* Diagnostic Imaging: Transthoracic Echocardiogram 04/14/2019 Conclusions Summary: 1. Left ventricle: The estimated ejection fraction is 55-60%. 2. Right ventricle: The cavity size is mildly reduced. Systolic function is mildly to moderately reduced. 3. Ventricular septum: Ventricular septal wall motion has a postoperative appearance. Otherwise wall motion appears normal. 4. Aortic valve: There is a bioprosthetic valve. The findings are consistent with very mild stenosis. The peak systolic velocity is 2.68 m/sec. The mean systolic gradient is 15.0 mm Hg. The LVOT to aortic valve VTI ratio is 0.33. 5. Pulmonary arteries: Systolic pressure is within the normal range. Recommendations: Compared to prior study from 12/2018, most significant change is right ventricle size and function previously reported normal. EKG Data: ekg on admission: afib 111 bpm, old IWMI, non-specific st/t changes, repeat this AM no significant changes compared to 01/23/2019, previously appeared atrial flutter 72 bpm, st/t changes not previously appreciated at a rate of 72 bpm telemetry: pvc's, no arrhythmias other than atrial fibrillation Assessment/Plan 1. Sepsis - Evaluation and treatment as per ID/Hospitalist service 2. Hx of CAD s/p CABG 3. Hx bioprosthetic AVR 4. Atrial fibrillation and flutter 5. Hx CVA 6. DM 7. CKD 8. Vascular dementia by history 9. 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 Tolerating atenolol 25 mg po at bedtime Thank you for allowing me to participate in the cardiovascular care of this patient. Please do not hesitate to contact me with questions or concerns.
[2019-04-18 08:53] LABS: Platelet Count 255 10^3/uL (150-450)
[2019-04-18] MEDS: Apixaban* 5 MG TAB PO SCH (09:07)
[2019-04-18] MEDS: Losartan TAB* 25 MG PO SCH (09:07)
[2019-04-18] MEDS: Insulin LISPRO* 1 UNITS UNIT SUBCUT SCH ×2 (09:07→12:17)
[2019-04-18] MEDS: Vancomycin(*) 750 MG in NS 0.9% 250 ML* 250 ML IVPB SCH (09:07)
[2019-04-18] MEDS: Memantine TAB* 5 MG PO SCH (09:07)
[2019-04-18] MEDS: glyBURIDE TAB* 2.5 MG PO SCH ×2 (09:07→12:17)
[2019-04-18] MEDS: Aspirin EC TAB* 81 MG TAB.EC PO SCH (09:07)
--- NOTE | 2019-04-18 11:17 | PN ---
Progress Note - Progress Note Date of Service: 04/18/19 SOAP: Subjective: CC: Fever and rash HPI: Mr. Freeman is a 68 yo male with PMH significant for CVA, vascular dementia, DM2, A fib, DVT/PE, hepatitis C, diabetic neuropathy, CKD, CAD, and HTN who presented to the ED with fever. Denies fever, chills, shortness of breath, chest discomfort, nausea, vomiting, diarrhea, or urinary symptoms. Reports that the discomfort in his left hand is improving and he is able to almost make a fist today. Overall he is feeling better. Objective: Vital Signs - 8 hr 04/18/19 04/18/19 04/18/19 03:40 08:00 08:15 Temperature 98 F 97.5 F Pulse Rate 76 51 Respiratory 14 15 15 Rate Blood Pressure 91/50 107/68 (mmHg) O2 Sat by Pulse 98 98 Oximetry Physical Exam: General: NAD, laying in bed Neurological: Alert and Oriented HEENT: Moist MM, no thrush Cardiovascular: Heart rate regular Respiratory: Lung sounds clear bilateral Abdominal: Bowel sounds present; ABD soft, non tender and non distended MSK: Edema in left hand and fingers is improving, able to make a loose fist Skin: Slight erythema to left side of waist line Laboratory Results - last 24 hr 04/17/19 04/17/19 04/17/19 POC Glucose (mg/dL) 183 H 210 H Vancomycin Trough 20.7 04/17/19 04/18/19 04/18/19 19:42 06:18 06:18 WBC 7.8 RBC 4.34 Hgb 12.8 L Hct 38 L MCV 88 MCH 30 MCHC 34 RDW 14 MPV Not Reportable Neut % (Auto) 77.8 Lymph % (Auto) 14.4 [place] % (Auto) 5.3 Eos % (Auto) 1.6 Baso % (Auto) 0.9 Absolute Neuts (auto) 6.1 Absolute Lymphs (auto) 1.1 Absolute Monos (auto) 0.4 Absolute Eos (auto) 0.1 Absolute Basos (auto) 0.1 Absolute Nucleated RBC 0.0 Nucleated RBC % 0.1 Clumped Platelets Present ESR 15 POC Glucose (mg/dL) 260 H Vancomycin Trough 19.3 04/18/19 04/18/19 07:38 08:33 Plt Count 255 MPV 8.0 POC Glucose (mg/dL) 163 H Microbiology 04/15/19 12:30 Aerobic Blood Culture - Preliminary Blood Venous No Growth Day 2 Anaerobic Blood Culture - Preliminary No Growth Day 2 04/15/19 12:30 Aerobic Blood Culture - Preliminary Blood Venous No Growth Day 2 Anaerobic Blood Culture - Preliminary No Growth Day 2 04/14/19 19:28 Urine Culture - Final Urine No Growth (<1,000 CFU/mL) Assessment: 1. Fever and erythematous rash. Urine culture with no growth. Blood cultures with no growth on day 2. TTE with no vegetation seen on the valves. Initial lyme serology is positive, reflux results are still pending. Afebile and no leukocytosis. Suspect this may represent early disseminated lyme. Differential DX still also includes viral illness. 2. Acute on chronic kidney injury. 3. Sepsis. Present on admission, resolved 4. DM2 with peripheral neuropathy. Plan: Discontinue vancomycin. Continue ceftriaxone while in the hospital. Can switch to Doxycycline 100 mg PO BID for 10 days at discharge. Followup with ID outpatient in 1-2 weeks.
[2019-04-18 12:03] VITALS: BP 103/60
[2019-04-18] MEDS ORDERED: Atenolol TAB* 25 MG PO SCH (21:00)
--- NOTE | 2019-04-19 00:18 | DS ---
CC: Dr. Tamez; Dr. Gonzalez; Dr. Caldwell * DISCHARGE SUMMARY: DATE OF ADMISSION: 04/14/19 DATE OF DISCHARGE: 04/18/19 PRIMARY DIAGNOSIS: Sepsis due to disseminated Lyme disease. SECONDARY DIAGNOSES: 1. Vascular dementia. 2. History of left pontine stroke, January 2019. 3. Type 2 diabetes. 4. Atrial fibrillation. 5. History of deep venous thrombosis and pulmonary embolism after open heart surgery. 6. Hepatitis C. 7. Diabetic peripheral neuropathy. 8. Coronary artery disease, status post coronary artery bypass graft in 2003. 9. Chronic kidney disease, stage 3. 10. Hypertension. 11. Bioprosthetic aortic suha replacement. MEDICATIONS ON DISCHARGE: 1. Losartan 25 mg p.o. daily. 2. Namenda 5 mg p.o. b.i.d. 3. Apixaban 5 mg p.o. b.i.d. 4. Aspirin 81 mg p.o. daily. 5. Atenolol 25 mg p.o. nightly. 6. Atorvastatin 20 mg p.o. nightly. 7. Doxycycline 100 mg p.o. b.i.d. for 2 weeks. 8. Glyburide 2.5 mg p.o. t.i.d. CONSULTATION: Dr. Caldwell of Cardiology, Dr. Gonzalez of Infectious Disease. PROCEDURES: None. HOSPITAL COURSE: This 68-year-old man with multiple medical problems and comorbidities, presented to the emergency department with vague problems with weakness, malaise, urinary incontinence. He had a fever of 102. A rash was noted with diffuse scattered erythema migrans on the trunk and legs. He also had erythema and swelling, and joint discomfort on his left hand. The patient was treated with intravenous ceftriaxone initially. Consultation was obtained from Infectious Disease on the 04/15/19. They agreed that Lyme was in the differential, but also wanted to rule out endocarditis given the presence of bioprosthetic valves. The patient had transthoracic echocardiogram on the 04/14 that showed ejection fraction of 55% to 60%, and functioning the aortic bioprosthetic valve with no vegetations. Laboratory testing was notable for troponin elevation at 0.31 on admission up to a peak of 1.00 on the 04/15/19. White count was 16.0 on admission and fell to 7.8 on discharge. Creatinine was 1.96 on admission and fell to 1.33 on discharge consistent with acute kidney injury from sepsis with resolution down to his baseline chronic kidney disease. Dr. Caldwell was consulted regarding the elevated troponin, history of heart disease, possible endocarditis. He felt that the patient had a type 2 myocardial infarction due to demand ischemia and infarction. He did get him started on atenolol in the evening, as he had been intolerant of metoprolol in the past. The patient tolerated this medication in terms of symptoms, but did have some heart rates as low as 40s overnight. Further testing from Lyme disease showed a positive Lyme screen and a positive immunoblot for Borrelia burgdorferi. Other microbiology tests were negative including a negative urine culture and blood cultures after 3 days, which showed no growth. DISPOSITION: To home. ACTIVITY: As tolerated. STATUS: Inpatient. CONDITION: Stable. FOLLOWUP: Should be with Dr. Tamez, Primary Care; Dr. Gonzalez for infectious Disease; Dr. Caldwell for Cardiology. TIME SPENT: I spent more than 50 minutes with the patient today examining and discussing the case with the patient's , completing necessary paper for discharge. [id number] #: [id number] [facility]
[2019-04-19] MEDS ORDERED: Vancomycin Trough Check NOTE FOLLOW UP ONE (05:30)
== END 2019-04-18 15:24 | disposition home or self-care (01) | DRG 871 ==
LOC: ED 16:50 → MEDTELE 20:59
PROVIDERS: ADMIT Hospitalist; ATTEND Internal Medicine
DX: A41.9 Sepsis, unspecified organism (principal); I21.A1 Myocardial infarction type 2; A69.20 Lyme disease, unspecified; I48.92 Unspecified atrial flutter; N17.9 Acute kidney failure, unspecified; N39.0 Urinary tract infection, site not specified; I48.91 Unspecified atrial fibrillation; E87.5 Hyperkalemia; F01.50 Vascular dementia, unspecified severity, without behavioral disturbance, psychotic disturbance, mood disturbance, and anxiety; E11.22 Type 2 diabetes mellitus with diabetic chronic kidney disease; N18.3 Chronic kidney disease, stage 3 (moderate); E11.42 Type 2 diabetes mellitus with diabetic polyneuropathy; I12.9 Hypertensive chronic kidney disease with stage 1 through stage 4 chronic kidney disease, or unspecified chronic kidney disease; E86.1 Hypovolemia; I25.10 Atherosclerotic heart disease of native coronary artery without angina pectoris; Z86.73 Personal history of transient ischemic attack (TIA), and cerebral infarction without residual deficits; Z86.718 Personal history of other venous thrombosis and embolism; Z95.2 Presence of prosthetic heart valve; Z86.19 Personal history of other infectious and parasitic diseases; Z95.1 Presence of aortocoronary bypass graft; Z79.01 Long term (current) use of anticoagulants; Z79.84 Long term (current) use of oral hypoglycemic drugs; Z79.82 Long term (current) use of aspirin; Z79.899 Other long term (current) drug therapy; Z88.8 Allergy status to other drugs, medicaments and biological substances; Z82.49 Family history of ischemic heart disease and other diseases of the circulatory system; Z83.3 Family history of diabetes mellitus
CPT/HCPCS: 36415; 80048; 80053; 80202; 81003; 81015; 82550; 82553; 82947; 83605; 83735; 84443; 84484; 85025; 85049; 85652; 86617; 86618; 87040; 87086; 93005; 93306; 99284; A9270-GY; C8929; J0696; J3370

== ENCOUNTER 2019-07-08 18:09 | Emergency (ER) | payer MEDICARE ==
--- OUTSIDE RECORDS SUMMARY | 2019-07-08 18:25 | XMS REPORT | Continuity of Care Document ---
:1950 External Reference #:[id number] Author Name Sergey Tamez M.D. (transmitted by agent of provider Coreen Lin) Address [address] [place] [address] Care Team Providers Name Role Phone [facility] Radiology Department - Diagnostic Care Team Information Waxer Operator [phone] Radiology [facility] Utilization Field Identification Specialist Care Team Information Waxer Operator - Health Educator Levi Ellis MD - Neurology Care Team Information Waxer Operator [phone] [facility] Physical Therapy - Care Team Information Waxer Operator [phone] Physical Therapist Sriram Kelley MD - Infectious Care Team Information Waxer Operator Disease Problems Active Problems Provider Date Type 2 diabetes mellitus Sergey Tamez M.D. Onset: 06/09/2011 Aortic valve disorder Sergey Tamez M.D. Onset: 06/09/2011 Hyperlipidemia Sergey Tamez M.D. Onset: 09/10/2011 Essential hypertension Sergey Tamez M.D. Onset: 04/19/2012 Urinary tract infectious disease Sergey Tamez M.D. Onset: 10/25/2012 Dyspnea Sergey Tamez M.D. Onset: 03/07/2015 Mild recurrent major depression Sergey Tamez M.D. Onset: 07/02/2016 Narcolepsy Sergey Tamez M.D. Onset: 07/02/2016 Diarrhea Sergey Tamez M.D. Onset: 07/02/2016 Essential tremor Sergey Tamez M.D. Onset: 08/07/2017 Mental disorder Sergey Tamez M.D. Onset: 08/07/2017 Malaise and fatigue Sergey Tamez M.D. Onset: 04/19/2018 Cerebral artery occlusion Sergey Tamez M.D. Onset: 02/16/2019 Mild cognitive disorder Sergey Tamez M.D. Onset: 02/16/2019 Lyme disease Sergey Tamez M.D. Onset: 04/27/2019 Acute myocardial infarction Sergey Tamez M.D. Onset: 04/27/2019 Social History Type Date Description Comments Sex Unknown ETOH Use Rare Tobacco Use Start: Unknown Patient has never smoked Smoking Status Reviewed: 06/08/19 Patient has never smoked Allergies, Adverse Reactions, Alerts Active Allergies Reaction Severity Comments Date Heparin caused bld clots 10/09/2010 Medications Active Medications SIG Qnty Indications Ordering Date Provider Zoe 1 po qd 30tabs Adele 06/08/2019 50mg Tablets Daija Lin Zoloft 1 by mouth every 30tabs Sergey Farley 05/25/2019 50mg Tablets day From Namita Tamez Depression Jardiance Take 1 Tablet By 30tabs Sergey Farley 02/22/2019 10mg Tablets Mouth Once Daily Namita Tamez Cozaar 1 by mouth every 90tabs Sergey Farley 01/22/2017 25mg Tablets day Namita Tamez Phendimetrazine 1 by mouth four 120tabs Sergey Farley 03/17/2016 Tartrate times a day mdd 4 Namita Tamez 35mg Tablets Donepezil HCL 1 by mouth every 30tabs Sergey Farley 01/17/2015 5mg Tablets day Namita Tamez Geovanna Breeze 2 Test Use To Test Blood 100units Sergey Farley 12/08/2010 Disc Sugar Twice Daily Namita Tamez 2Test Disk Breeze 2 Blood Glucose Use as Directed 1units Sergey Farley 05/10/2007 Monitoring System Namita Tamez Device Prilosec OTC take 1 tablet by 90tabs Sergey Farley 11/04/2006 20mg Tablets mouth every day Namita Tamez DR take one tablet Unknown 5mg Tablets by mouth twice a day Aspirin 81 1 by mouth every Unknown 81mg Tablets day DR [place] Calcium 1 by mouth every Unknown 20mg day Tablets Glyburide take one tablet 90tabs Adele 2.5mg Tablets by mouth three [place], times daily Afnp-C Memantine HCL bid Unknown 5(28)-10(21)mg Tablets Atenolol 1 by mouth every Unknown 25mg Tablets day History Medications Jardiance 1 by mouth every 90tabs Sergey Tamez, 02/22/2019 - 10mg day M.DReinier 02/22/2019 Tablets Immunizations CPT Code Status Date Vaccine Reaction Lot # [id number] Given 09/27/2018 Influenza Vac, Quadrivalent, [id number] [id number] Given 08/07/2017 Pneumococcal Immunization [id number] 93098 Given 08/07/2017 High-Dose, Influenza Virus [id number] Vacccine-fluzone 65 and older 45415 Given 09/17/2015 High-Dose, Influenza Virus [id number] Vacccine-fluzone 65 and older 28363 Given 10/16/2014 Pneumococcal Conjugate Vacc-13 [id number] 56690 Given 10/16/2014 High-Dose, Influenza Virus [id number] Vacccine-fluzone 65 and older 48967 Given 07/15/2013 DO Not Use Split Influenza Virus [id number] Vaccine 83766 Given 04/19/2012 Tdap Tetanus, W Pertussis [id number] 15489 Given 09/10/2011 DO Not Use Split Influenza Virus no reaction noted [id number] Vaccine 71156 Given 10/05/2009 H1N1 Virus Vaccine [id number] 52970 Given 10/05/2009 H1N1 Immunization Intramuscular/Intranasal W Counseling 82879 Given 09/04/2008 DO Not Use Split Influenza Virus [id number] Vaccine Vital Signs Date Vital Result Comment 06/08/2019 9:01am BP Systolic 114 mmHg BP Diastolic 68 mmHg Heart Rate 84 /min Body Temperature 98.2 F Respiratory Rate 16 /min Height 67.5 inches 5'7.50" measured Weight 175.00 lb BMI (Body Mass Index) 27.0 kg/m2 05/25/2019 12:05pm BP Systolic 110 mmHg BP Diastolic 80 mmHg Heart Rate 76 /min Body Temperature 97.6 F Respiratory Rate 16 /min Height 67.5 inches 5'7.50" measured Weight 175.00 lb BMI (Body Mass Index) 27.0 kg/m2 Results Test Date Facility Test Result H/L Range Note Laboratory test 06/08/2019 [facility] Hemoglobin A1c 8.2 % High 4.1- 5.7 finding (607)- - ([facility]) Glucose Fingerstick ([facility]) 218 mg/dL High 70-105 Laboratory test 05/25/2019 [facility] Reactive 1.34 mg/L Normal <8.01 1 finding Protein Comprehensive 05/25/2019 [facility]) Sodium 144 mEq/L 134-149 Metabolic Prof Potassium 5.3 mEq/L 3.6-5.5 Chloride 107 mEq/L 94-112 Carbon Dioxide 24 mEq/L 21-32 Glucose 193 mg/dL High 70-105 2 BUN 26 mg/dL 6-26 Creatinine 1.5 mg/dL High 0.6-1.4 3 BUN/Creat Ratio 17.3 CALC 8.0-36.0 Calcium 9.0 mg/dL 8.6-10.2 Total Protein 7.3 g/dL 6.4-8.3 Albumin 3.9 g/dL 3.8-5.5 Globulin 3.4 g/dL 2.0-4.8 A/G Ratio 1.1 CALC 0.6-2.3 Alk. Phosphatase 78 U/L 22-95 Alt (SGPT) 32 U/L 7-35 Ast (Sgot) 24 U/L 5-34 Total Bilirubin 0.5 mg/dL 0.2-1.3 GFR Non- 49 ml/min/1.73m^ Low >=60 GFR 60 ml/min/1.73m^ >=60 CBC Electronic a 05/25/2019 [facility]) WBC 5.5 x10^3/UL 4.0- 10.0 RBC 5.11 x10^6/UL 3.93-6.00 HGB 14.9 g/dL 12.0-17.0 HCT 46 % 35-50 MCV 89.4 fL 80.0-95.0 MCH 29.2 pg 25.6-32.2 MCHC 32.6 g/dL 32.2-36.0 RDW-CV 13.5 % 11.6-14.4 PLT 123 x10^3/UL Low 163-400 4 MPV 11.2 fL 9.4-12.4 Derek# 3.82 x10^3/UL 1.56-6.13 Lymph# 1.19 x10^3/UL 1.18-3.74 Beaver# 0.40 x10^3/UL 0.24-0.82 Eos # 0.1 x10^3/UL 0.0-0.5 Baso # 0.04 x10^3/UL 0.01-0.08 Derek% 69.5 % 34.0-70.0 Lymph % 21.6 % 20.0-52.0 Beaver% 7.3 % 5.0-12.0 Eos% 0.9 % 0.7-7.0 Baso% 0.7 % 0.1-1.2 Laboratory test finding 04/14/2019 [facility] Troponin I 0.44 ng/mL Critical high <0.04 5 Lyme Screen W/ Reflex To WB Positive Abnormal Negative 6 Lyme Disease AB Immunoblot WB 04/14/2019 [facility] IgG Immunoblot Negative Negative IgG detected against p45,p41,p39,p23 kDa IgM Immunoblot Positive Abnormal Negative IgM detected against p41,p23 kDa Lyme Disease Interpretation See Comment 7 Laboratory test 04/14/2019 [facility] Lactic Acid 0.9 mmol/L Normal 0.5-2.0 8 finding CBC Auto Diff 04/14/2019 [facility] White Blood Count 16.0 10^3/uL High 3.5- 10.8 Red Blood Count 4.82 10^6/uL Normal 4.18-5.48 Hemoglobin 14.1 g/dL Normal 14.0-18.0 Hematocrit 42 % Normal 42-52 Mean Corpuscular Volume 87 fL Normal 80-94 Mean Corpuscular Hemoglobin 29 pg Normal 27-31 Mean Corpuscular HGB Conc 34 g/dL Normal 31-36 Red Cell Distribution Width 13 % Normal 10-15 Platelet Count 216 10^3/uL Normal 150-450 Mean Platelet Volume 8.9 fL Normal 7.4-10.4 Comp Metabolic Panel 04/14/2019 [facility] Sodium 133 mmol/L Low 135-145 Potassium 5.2 mmol/L High 3.5-5.0 Chloride 102 mmol/L Normal 101-111 Co2 Carbon Dioxide 20 mmol/L Low 22-32 Anion Gap 11 mmol/L Normal 2-11 Glucose 272 mg/dL High 70-100 Blood Urea Nitrogen 30 mg/dL High 6-24 Creatinine 1.96 mg/dL High 0.67-1.17 BUN/Creatinine Ratio 15.3 Normal 8-20 Calcium 8.8 mg/dL Normal 8.6-10.3 Total Protein 7.2 g/dL Normal 6.4-8.9 Albumin 3.3 g/dL Normal 3.2-5.2 Globulin 3.9 g/dL Normal 2-4 Albumin/Globulin Ratio 0.8 Low 1-3 Total Bilirubin 1.10 mg/dL High 0.2-1.0 Alkaline Phosphatase 72 U/L Normal 34-104 Alt 34 U/L Normal 7-52 Ast 28 U/L Normal 13-39 Egfr Non- 34.0 >60 Egfr 41.1 >60 9 Laboratory test finding 04/14/2019 [facility] Magnesium 2.0 mg/dL Normal 1.9- 2.7 Troponin I 0.31 ng/mL Critical high <0.04 10 TSH (Thyroid Stim Horm) 2.63 mcIU/mL Normal 0.34-5.60 Manual Differential 04/14/2019 [facility] [facility] Immature Granulocytes 4.0 % Normal 0- 9 Neutrophil % 90.0 % Band % 4.0 % Normal 0-8 Lymphocytes % 2.0 % Monocytes % 4.0 % RBC Morphology Normal Normal Abs Neutrophils 15.0 10^3/uL High 1.5-7.7 Abs Lymphocytes 0.3 10^3/uL Low 1.0-4.8 Abs Monocytes 0.7 10^3/uL Normal 0-0.8 Urinalysis Profile 04/14/2019 [facility] [facility] Urine Color Yellow Urine Appearance Cloudy Urine Specific [place] 1.025 Normal 1.010-1.030 Urine pH 5.0 Normal 5-9 Urine Urobilinogen Negative Negative Urine Ketones 1+ Abnormal Negative Urine Protein 1+(30 mg/dL) Abnormal Negative Urine Leukocytes Negative Negative Urine Blood 1+ Abnormal Negative Urine Nitrite Negative Negative Urine Bilirubin Negative Negative Urine Glucose 3+(>=500 mg/dL) Abnormal Negative Urine White Blood Cell Trace(0-5/hpf) Absent Urine Red Blood Cell 3+(>10/hpf) Abnormal Absent Urine Bacteria Absent Absent Urine Squamous Epithelial Cell Present Abnormal Absent Urine Culture And 04/14/2019 [facility] Urine Culture SEE RESULT 11 Sensitivities BELOW Basic Metabolic 03/23/2019 [facility]) Sodium 140 mEq/L 134-149 Profile Potassium 5.3 mEq/L 3.6-5.5 Chloride 105 mEq/L 94-112 Carbon Dioxide 24 mEq/L 21-32 Glucose 177 mg/dL High 70-105 BUN 25 mg/dL 6-26 Creatinine 1.5 mg/dL High 0.6-1.4 BUN/Creat Ratio 16.7 CALC 8.0-36.0 Calcium 9.1 mg/dL 8.6-10.2 GFR Non- 49 ml/min/1.73m^ Low >=60 GFR 60 ml/min/1.73m^ >=60 Laboratory test 03/23/2019 [facility] Hemoglobin A1c 7.9 % % High 4.1-5.7 finding (607)- - ([facility]) Hep C Virus Rna 02/16/2019 [facility] Hepatitis C 5800 IU/mL 12 QNT W/RFX 1447 [facility] [place] [address] (607)- - HCV log10 3.763 zqn05EV/mL Test Information: See Comment: 13 HCV Genotype See Comment: 14 Please note: See Comment: 15 Hepatitis C Genotype 2a/2c Basic Metabolic Profile 02/16/2019 [facility]) Sodium 142 mEq/L 134-149 Potassium 5.5 mEq/L 3.6-5.5 Chloride 104 mEq/L 94-112 Carbon Dioxide 28 mEq/L 21-32 Glucose 229 mg/dL High 70-105 BUN 29 mg/dL High 6-26 Creatinine 1.5 mg/dL High 0.6-1.4 BUN/Creat Ratio 19.3 CALC 8.0-36.0 Calcium 9.4 mg/dL 8.6-10.2 GFR Non- 49 ml/min/1.73m^ Low >=60 GFR 60 ml/min/1.73m^ >=60 Laboratory test finding 01/23/2019 [facility] Potassium Redraw 4.5 mmol/L Normal 3.5-5.0 Ast Redraw 18 U/L Normal 13-39 TSH (Thyroid Stim Horm) 1.97 mcIU/mL Normal 0.34-5.60 Basic Metabolic Panel 01/23/2019 [facility] Sodium 137 mmol/L Normal 135-145 Potassium 4.9 mmol/L Normal 3.5-5.0 Chloride 108 mmol/L Normal 101-111 Co2 Carbon Dioxide 26 mmol/L Normal 22-32 Anion Gap 3 mmol/L Normal 2-11 Glucose 201 mg/dL High 70-100 Blood Urea Nitrogen 21 mg/dL Normal 6-24 Creatinine 1.37 mg/dL High 0.67-1.17 BUN/Creatinine Ratio 15.3 Normal 8-20 Calcium 8.3 mg/dL Low 8.6-10.3 Egfr Non- 51.4 >60 Egfr 62.2 >60 16 Laboratory test 01/23/2019 [facility] Magnesium 1.8 mg/dL Low 1.9-2.7 finding Inr/Protime 01/23/2019 [facility] Inr 1.08 High 0.77-1.02 Laboratory test 01/23/2019 [facility] Partial Thrombo 22.7 seconds Low 26.0- 36.3 finding Time PTT Type & Screen 01/23/2019 [facility] Patient Blood Type AB Positive Antibody Screen NEGATIVE Laboratory test finding 01/23/2019 [facility] Lactic Acid 1.3 mmol/L Normal 0.5- 2.0 17 Troponin I 0.02 ng/mL <0.04 18 Comp Metabolic Panel 01/23/2019 [facility] Sodium 139 mmol/L Normal 135-145 Co2 Carbon Dioxide 19 mmol/L Low 22-32 Glucose 115 mg/dL High 70-100 Blood Urea Nitrogen 19 mg/dL Normal 6-24 Creatinine 1.08 mg/dL Normal 0.67-1.17 BUN/Creatinine Ratio 17.6 Normal 8-20 Calcium 6.5 mg/dL Low 8.6-10.3 Total Protein 4.9 g/dL Low 6.4-8.9 Albumin 2.7 g/dL Low 3.2-5.2 Globulin 2.2 g/dL Normal 2-4 Albumin/Globulin Ratio 1.2 Normal 1-3 Total Bilirubin 0.40 mg/dL Normal 0.2-1.0 Alkaline Phosphatase 52 U/L Normal 34-104 Alt 15 U/L Normal 7-52 Egfr Non- 67.6 >60 Egfr 81.8 >60 19 Chloride 116 mmol/L High 101-111 Potassium TNP mmol/L 3.5-5.0 20 Anion Gap 4 mmol/L Normal 2-11 Ast TNP U/L 13-39 21 Lipid Profile (Trig/Chol/HDL) 01/23/2019 [facility] Triglycerides 100 mg/dL 22 Cholesterol 93 mg/dL 23 HDL Cholesterol 17.5 mg/dL 24 LDL Cholesterol 56 mg/dL 25 Urinalysis Profile 01/23/2019 [facility] Urine Color Yellow Urine Appearance Clear Urine Specific [place] 1.039 High 1.010-1.030 Urine pH 5.0 Normal 5-9 Urine Urobilinogen Negative Negative Urine Ketones Trace Abnormal Negative Urine Protein 1+(30 mg/dL) Abnormal Negative Urine Leukocytes Negative Negative Urine Blood Negative Negative Urine Nitrite Negative Negative Urine Bilirubin Negative Negative Urine Glucose 1+(50 mg/dL) Abnormal Negative Urine White Blood Cell Absent Absent Urine Red Blood Cell Absent Absent Urine Bacteria Absent Absent Urine Squamous Epithelial Cell Present Abnormal Absent CBC Auto Diff 01/23/2019 [facility] White Blood Count 4.6 10^3/uL Normal 3.5- 10.8 Red Blood Count 4.39 10^6/uL Normal 4.18-5.48 Hemoglobin 12.7 g/dL Low 14.0-18.0 Hematocrit 39 % Normal 36-46 Mean Corpuscular Volume 89 fL Normal 80-94 Mean Corpuscular Hemoglobin 29 pg Normal 27-31 Mean Corpuscular HGB Conc 33 g/dL Normal 31-36 Red Cell Distribution Width 14 % Normal 10.5-15 Platelet Count 92 10^3/uL Low 150-450 Mean Platelet Volume 8.0 fL Normal 7.4-10.4 Abs Neutrophils 3.5 10^3/uL Normal 1.5-7.7 Abs Lymphocytes 0.7 10^3/uL Low 1.0-4.8 Abs Monocytes 0.2 10^3/uL Normal 0-0.8 Abs Eosinophils 0 10^3/uL Normal 0-0.6 Abs Basophils 0 10^3/uL Normal 0-0.2 Abs Nucleated RBC 0 10^3/uL Granulocyte % 77.6 % Lymphocyte % 16.3 % Monocyte % 4.7 % Eosinophil % 0.9 % Basophil % 0.5 % Nucleated Red Blood Cells % 0.1 Laboratory test finding 01/23/2019 [facility] Pathologist Review (SEE NOTE) 26 Laboratory test finding 12/15/2018 [facility] Folic Acid (Folate) > 20.00 ng/mL >3.99 27 1 1 Gold [id number] 2 NON-FASTING 3 consistent w/ previous results 4 RESULTS VERIFIED BY REPEAT ANALYSIS 5 Result TnIDx:0.44 Called to [id number] at: 20:36:02 by:[id number] Read back by: [email or web address] Troponin-I testing on Plasma Separator Tubes (PST) has a known false positive rate of 0.20-0.40%. All positive troponins reflex immediately to secondary confirmatory testing. Using the [employer] 800 Access Immunoassay systems, the 99th percentile upper reference limit was demonstrated to be < 0.03 ng/mL. 6 Sent to reference laboratory for confirmatory testing. 7 Consistent with early infection with Borrelia burgdorferi. A new serum specimen should be submitted in 14-21 days to demonstrate seroconversion of IgG. IgM blot criteria is of diagnostic utility only during the first 4 weeks of early Lyme disease. ADDITIONAL INFORMATION Per CDC criteria, the Lyme IgG Immunoblot is interpreted as positive if IgG-class antibodies are detected to >=5 B. burgdorferi proteins, and the Lyme IgM Immunoblot is interpreted as positive if IgM-class antibodies are detected to >=2 B. burgdorferi proteins. Immunoblot patterns not meeting these criteria should not be interpreted as positive. Epitopes from certain B. burgdorferi proteins (e.g., p41) are conserved across other bacteria, which may lead to the detection of IgM- and/or IgG-class antibodies on the Lyme disease immunoblots in patients without Lyme disease. Immunoblot should only be ordered on specimens that are positive or equivocal by a FDA-licensed Lyme disease antibody screening test (e.g., EIA). Results of the Lyme IgM immunoblot should not be considered in patients with >= 30 days of symptoms. Test Performed by: [place] [id number] [place] [address] 8 [facility] Severe Sepsis and Septic Shock Management Bundle Measure requires all lactic acids initially measuring >2.0 mmol/L be repeated. 9 Because ethnic data is not always readily available, this report includes an eGFR for both -Americans and non- Americans. The National Kidney Disease Education Program (NKDEP) does not endorse the use of the MDRD equation for patients that are not between the ages of 18 and 70, are , have extremes of body size, muscle mass, or nutritional status, or are non- or non-. According to the National Kidney Foundation, irrespective of diagnosis, the stage of the disease is based on the level of kidney function: Stage Description GFR(mL/min/1.73 m(2)) 1 Kidney damage with normal or decreased GFR 90 2 Kidney damage with mild decrease in GFR 60-89 3 Moderate decrease in GFR 30-59 4 Severe decrease in GFR 15-29 5 Kidney failure <15 (or dialysis) 10 Result TnIDx:0.31 Called to [id number] at: 17:56:48 by:[id number] Read back by: [id number] Troponin-I testing on Plasma Separator Tubes (PST) has a known false positive rate of 0.20-0.40%. All positive troponins reflex immediately to secondary confirmatory testing. Using the [employer] 800 Access Immunoassay systems, the 99th percentile upper reference limit was demonstrated to be < 0.03 ng/mL. 11 SEE RESULT BELOW Name: LUIS E RUIZ : [address]: Brigida Balderrama DO Acct: [id number] Unit: [id number] AGE: 68 Location: [place] [address] Re04/14/19 SEX: M Status: ADM IN SPEC: [id number] KIRILL: 04/14[birth year]-1927 [facility] DR: Mick Osborne MD REQ: [id number] RECD: 04/14/19 STATUS: COMP [facility] DR: Sergey Tamez MD _ SOURCE: URINE [facility]: ORDERED: Urine Culture Procedure Result Reported Site Urine Culture Final 04/15/19- 1630 ML No Growth (<1,000 CFU/mL) * ML - Main Lab . END OF REPORT DEPARTMENT OF PATHOLOGY, [address] [place] [address] Miles Garcia M.D. Director [facility] # [id number] 12 The quantitative range of this assay is 15 IU/mL to 100 million IU/mL. 14 To be performed on this specimen. 15 This test was developed and its performance characteristics determined by [employer]. It has not been cleared or approved by the U.S. Food and Drug Administration. The FDA has determined that such clearance or approval is not necessary. This test is used for clinical purposes. It should not be regarded as investigational or for research. 16 Because ethnic data is not always readily available, this report includes an eGFR for both -Americans and non- Americans. The National Kidney Disease Education Program (NKDEP) does not endorse the use of the MDRD equation for patients that are not between the ages of 18 and 70, are , have extremes of body size, muscle mass, or nutritional status, or are non- or non-. According to the National Kidney Foundation, irrespective of diagnosis, the stage of the disease is based on the level of kidney function: Stage Description GFR(mL/min/1.73 m(2)) 1 Kidney damage with normal or decreased GFR 90 2 Kidney damage with mild decrease in GFR 60-89 3 Moderate decrease in GFR 30-59 4 Severe decrease in GFR 15-29 5 Kidney failure <15 (or dialysis) 17 [facility] Severe Sepsis and Septic Shock Management Bundle Measure requires all lactic acids initially measuring >2.0 mmol/L be repeated. 18 Troponin-I testing on Plasma Separator Tubes (PST) has a known false positive rate of 0.20-0.40%. All positive troponins reflex immediate secondary confirmatory testing. 19 Because ethnic data is not always readily available, this report includes an eGFR for both -Americans and non- Americans. The National Kidney Disease Education Program (NKDEP) does not endorse the use of the MDRD equation for patients that are not between the ages of 18 and 70, are , have extremes of body size, muscle mass, or nutritional status, or are non- or non-. According to the National Kidney Foundation, irrespective of diagnosis, the stage of the disease is based on the level of kidney function: Stage Description GFR(mL/min/1.73 m(2)) 1 Kidney damage with normal or decreased GFR 90 2 Kidney damage with mild decrease in GFR 60-89 3 Moderate decrease in GFR 30-59 4 Severe decrease in GFR 15-29 5 Kidney failure <15 (or dialysis) 20 Specimen Hemolyzed. Result may not be valid. Unable to report test result due to hemolysis. 21 Unable to report test result due to hemolysis. 22 Desirable: <150 Borderline High: 150-199 High: 200-499 Very High: >500 23 Desirable: <200 Borderline High: 200-239 High: >239 24 Low: <40 Desirable: 40-60 High: >60 25 Desirable: <100 Near Optimal: 100-129 Borderline High: 130-159 High: 160-189 Very High: >189 26 Mild normocytic anemia with thrombocytopenia noted. Only rare (less than 1/hpf) schistocytes noted. No blasts are seen. Reviewed by Dr. Garcia 27 [id number] Procedures Date Code Description Status 01/10/2008 [id number] Colonoscopy Completed Medical Devices Description No Information Available Encounters Type Date Location Provider Dx Diagnosis Office Visit 05/25/2019 Main Office Sergey Tamez A69.20 Lyme disease , 11:20a Namita unspecified E11.9 Type 2 diabetes mellitus without complications I63.9 Cerebral infarction, unspecified I21.9 Acute myocardial infarction, unspecified G47.419 Narcolepsy without cataplexy G31.84 Mild cognitive impairment, so stated F34.1 Dysthymic disorder Office Visit 04/27/2019 2:20p Main Office Sergey Farley A69.20 Dashawn Field M.D. unspecified E11.9 Type 2 diabetes mellitus without complications I63.9 Cerebral infarction, unspecified I21.9 Acute myocardial infarction, unspecified Office Visit 03/23/2019 10:10a Main Office Sergey Galindo9 Type 2 diabetes Namita Tamez mellitus without complications I63.9 Cerebral infarction, unspecified G47.419 Narcolepsy without cataplexy Office Visit 02/16/2019 9:40a Main Office Sergey Farley [id number] Type 2 diabetes Namita Tamez mellitus without complications I63.9 Cerebral infarction, unspecified G31.84 Mild cognitive impairment, so stated G47.419 Narcolepsy without cataplexy B18.2 Chronic viral hepatitis C Assessments Date Code Description Provider 06/08/2019 E11.9 Type 2 diabetes mellitus without Sergey Tamez M.D. complications 06/08/2019 E11.9 Type 2 diabetes mellitus without Daija Newton complications 05/25/2019 A69.20 Lyme disease, unspecified Sergey aTmez M.D. 05/25/2019 E11.9 Type 2 diabetes mellitus without Sergey Tamez M.D. complications 05/25/2019 I63.9 Cerebral infarction, unspecified Sergey Tamez M.D. 05/25/2019 I21.9 Acute myocardial infarction, unspecified Sergey Tamez M.D. 05/25/2019 G47.419 Narcolepsy without cataplexy Sergey Tamez M.D. 05/25/2019 G31.84 Mild cognitive impairment, so stated Sergey Tamez M.D. 05/25/2019 F34.1 Dysthymic disorder Sergey Tamez M.D. 04/27/2019 A69.20 Lyme disease, unspecified Sergey Tamez M.D. 04/27/2019 E11.9 Type 2 diabetes mellitus without Sergey Tamez M.D. complications 04/27/2019 I63.9 Cerebral infarction, unspecified Sergey Tamez M.D. 04/27/2019 I21.9 Acute myocardial infarction, unspecified Sergey Tamez M.D. 04/15/2019 A69.20 Lyme disease, unspecified Sergey Tamez M.D. 03/23/2019 E11.9 Type 2 diabetes mellitus without Sergey Tamez M.D. complications 03/23/2019 I63.9 Cerebral infarction, unspecified Sergey Tamez M.D. 03/23/2019 G47.419 Narcolepsy without cataplexy Sergey Tamez M.D. 02/16/2019 E11.9 Type 2 diabetes mellitus without Sergey Tamez M.D. complications 02/16/2019 I63.9 Cerebral infarction, unspecified Sergey Tamez M.D. 02/16/2019 G31.84 Mild cognitive impairment, so stated Sergey Tamez M.D. 02/16/2019 G47.419 Narcolepsy without cataplexy Sergey Tamez M.D. 02/16/2019 B18.2 Chronic viral hepatitis C Sergey Tamez M.D. 01/24/2019 I63.9 Cerebral infarction, unspecified Sergey Tamez M.D. 12/15/2018 G31.84 Mild cognitive impairment, so stated Sergey Tamez M.D. Plan of Treatment Future Appointment(s):07/06/2019 11:20 am - Sergey Tamez M.D. at [facility]/08/2019 - Sergey Tamez M.D.E11.9 Type 2 diabetes mellitus without complicationsAllNew Medication:Januvia 50 mg - 1 po qdComments: added januuvia after discussion with Dr Killian f/u [facility] pcp 2 mos Functional Status Description No Information Available Mental Status Description No Information Available Referrals Refer to Reason for Referral Status Appt Date Dmitriy Caldwell MD [facility] f/u. LT Scheduled 05/19/2019 [address] [place] [address] [phone] [facility] Physical Therapy PHYSICAL THERAPY evaluate and Scheduled treat cva, balance [address] [place] [address] [phone]
--- NOTE | 2019-07-08 19:07 | ED ---
Back Pain - HPI Summary HPI Summary: 68 [facility] by complains of lower back pain rated 7/10 in severity since falling approximately 10 feet from a ladder then landing on to both his feet and sliding on to his right knee this afternoon. Symptoms aggravated by nothing. Symptoms alleviated by Motrin 800 mg and ice per . reports right knee ecchymosis. Patient denies bilateral feet pain, bilateral leg pain, and urinary continence. - History of Current Complaint Chief Complaint: EDFall Stated Complaint: FALL/BACK PAIN PER Time Seen by Provider: 07/08/19 18:42 Hx Obtained From: Patient, Family/Fiscal Analyst - Onset/Duration: Lasting Hours, Still Present Onset/Duration: Started Hours Ago, Still Present Timing: Constant Severity Currently: Moderate Pain Intensity: 7 Pain Scale Used: 0-10 Numeric Aggravating Symptom(s): Nothing Alleviating Symptom(s): Cold, OTC Meds Associated Signs And Symptoms: Positive: Negative - bilateral feet pain, bilateral leg pain, and urinary continence, Other - right knee ecchymosis - Allergies/Home Medications Allergies/Adverse Reactions: Allergies Allergy/AdvReac Type Severity Reaction Status Date / Time heparin Allergy See Comment Verified 01/23/19 12:28 Home Medications: Home Medications Empaglifozin (NF) [Jardiance (Nf)] 10 mg PO DAILY 07/08/19 [History Confirmed ] Losartan TAB* [Cozaar TAB*] 25 mg PO DAILY 07/08/19 [History Confirmed 07/08/19] Sitagliptin (NF) [Januvia (NF)] 50 mg PO DAILY 07/08/19 [History Confirmed 07/08] PMH/Surg Hx/FS Hx/Imm Hx Endocrine/Hematology History: Reports: Hx Diabetes Cardiovascular History: Reports: Hx Coronary Artery Disease - quadruple bypass - 2004, Hx Valvular Heart Disease, Other Cardiovascular Problems/Disorders - Aortic valve replacement 2010 Denies: Hx Hypertension, Hx Pacemaker/ICD History: Reports: Hx Kidney Infection, Hx Kidney Stones, Other Problems/ Disorders - Kidney failure (not specific if acute or chronic) Denies: Hx Renal Disease Sensory History: Reports: Hx Cataracts, Hx Contacts or Glasses Denies: Hx Eye Injury, Hx Glaucoma, Hx Hearing Aid Opthamlomology History: Reports: Hx Cataracts, Hx Contacts or Glasses Denies: Hx Eye Injury, Hx Glaucoma Neurological History: Reports: Hx Transient Ischemic Attacks (TIA), Other Neuro Impairments/Disorders - Narcolapsy Denies: Hx Seizures Psychiatric History: Reports: Hx Depression Denies: Hx Panic Disorder - Surgical History Surgery Procedure, Year, and Place: 2004 QUADRUPLE CARDIAC BYPASS, [facility]. 2010 AORTIC VALVE REPLACEMENT, [facility]. 09/2012 PREVIOUS STENT - CARDIAC. 2010 COLONOSCOPY, [facility]. 2013 CYSTOSCOPY RIGHT URETER STENT REMOVAL, URETEROSCOPY, LITHOTRIPSY, STENT INSERTION, [facility] Hx Anesthesia Reactions: No - Immunization History Date of Tetanus Vaccine: 2010 Date of Influenza Vaccine: Fall 2011 Infectious Disease History: No Infectious Disease History: Reports: Hx Hepatitis - HEP. C SINCE 2011, BLD WORK YEARLY Denies: Traveled Outside the [place] in Last 30 Days - Family History Family History: negative for colon CA - Social History Alcohol Use: Occasionally Alcohol Amount: 4-5/month Hx Substance Use: Yes Substance Use Type: Reports: Marijuana Hx Tobacco Use: No Smoking Status (MU): Never Smoked Tobacco Have You Smoked in the Last Year: No Review of Systems Negative: incontinence Musculoskeletal: Negative - bilateral feet pain, bilateral leg pain Positive: Other - lower back pain, All Other Systems Reviewed And Are Negative: Yes Physical Exam - Summary Physical Exam Summary: Appearance: The patient is well-nourished in no acute distress and in no acute pain. Skin: The skin is warm and dry, and skin color reflects adequate perfusion. HEENT: The head is normocephalic and atraumatic. The pupils are equal and reactive. The conjunctivae are clear and without drainage. Nares are patent and without drainage. Mouth reveals moist mucous membranes, and the throat is without erythema and exudate. The external ears are intact. The ear canals are patent and without drainage. The tympanic membranes are intact. Neck: The neck is supple with full range of motion and non-tender. There are no carotid bruits. There is no neck vein distension. Respiratory: Chest is non-tender. Lungs are clear to auscultation and breath sounds are symmetrical and equal. Cardiovascular: Heart is regular rate and rhythm. There is no murmur or rub auscultated. There is no peripheral edema and pulses are symmetrical and equal. Abdomen: The abdomen is soft and non-tender. There are normal bowel sounds heard in all four quadrants and there is no organomegaly palpated. Musculoskeletal: There is midline lumbar spine tenderness noted. Extremities are non-tender with full range of motion. There is good capillary refill. There is no peripheral edema or calf tenderness elicited. Neurological: Patient is alert and oriented to person, place and time. The patient has symmetrical motor strength in all four extremities. Cranial nerves are grossly intact. Deep tendon reflexes are symmetrical and equal in all four extremities. Psychiatric: The patient has an appropriate affect and does not exhibit any anxiety or depression. Triage Information Reviewed: Yes Vital Signs On Initial Exam: Initial Vitals Temp Pulse Resp BP Pulse Ox 97 F 72 18 163/114 99 07/08/19 18:14 07/08/19 18:14 07/08/19 18:14 07/08/19 18:14 07/08/19 18:14 Vital Signs Reviewed: Yes Diagnostics - Vital Signs Vital Signs Temp Pulse Resp BP Pulse Ox 07/08/19 18:14 97 F 72 18 163/114 99 - Laboratory Lab Statement: Any lab studies that have been ordered have been reviewed, and results considered in the medical decision making process. - CT Lumbar spine CT Interpretation Completed By: Radiologist Summary of CT Findings: 1. There is acute comminuted moderate compression burst fracture involving the anterior and posterior columns of the L1 vertebral body with mild retropulsion of fracture fragment into the anterior spinal canal contributing to moderate spinal canal stenosis. There is additional acute mildly displaced fracture involving the right lamina at L1 and extending to the left lamina at L2. 2. There is mild anterior paraspinal hematoma at L1. ED physician has reviewed this report. Re-Evaluation - Re-Evaluation First Eval Re-Evaluation Time: 20:34 Comment: patient informed that he will be transferred. patient and are agreeable to transfer Back Pain Course/Dx - Course Course Of Treatment: Mr. Freeman was intact neurologically on arrival. He was evaluated with CT scan and found to have a burst fracture of L1 with mildly retropulsed fragments. No apparent spinal involvement. He was kept immobilized while neurosurgery at [facility] was contacted. Dr. Michel of neurosurgery agreed to accept the patient and evaluate him in the emergency department. The patient had been denying pain medication but was concerned that the ride down to be painful and therefore he was given pain medication at that point. - Diagnoses Provider Diagnoses: Burst fracture of lumbar vertebra - Provider Notifications Time Discussed With Above Provider: 20:28 Instructed by Provider To: Other - Dr. Michel, neurosurgery, at [facility] agrees to accept patient - Critical Care Time Critical Care Time: 30-74 min Discharge ED - Sign-Out/Discharge Documenting (check all that apply): Patient Departure - Transfer Patient Received Moderate/Deep Sedation with Procedure: No - Discharge Plan Condition: Stable Disposition: TRANS HIGHER LVL OF CARE FAC Referrals: Sergey Tamez MD [Primary Care Provider] - - Billing Disposition and Condition Condition: STABLE Disposition: Trans Higher Lvl of Care Fac - Attestation Statements Document Initiated by Scribe: Yes Documenting Scribe: Lindsey Melchor Provider For Whom Scribe is Documenting (Include Credential): Mick Olivera MD Scribe Attestation: Lindsey Bardales, scribed for Mick Olivera MD on 07/08/19 at 2104. Scribe Documentation Reviewed: Yes Provider Attestation: The documentation as recorded by the scribeLindsey accurately reflects the service I personally performed and the decisions made by me, Mick Olivera MD Status of Scribe Document: Viewed
[2019-07-08] MEDS ORDERED: Ondansetron INJ* 2 MG/ML VIAL IV ONE (21:06)
[2019-07-08] MEDS ORDERED: HYDROmorphone INJ1* 1 MG/ML SYRINGE IV SLOW PU ONE (21:06)
[2019-07-08 21:36] VITALS: BP 142/89
== END 2019-07-08 22:26 | disposition short-term general hospital (02) ==
LOC: ED 18:09
DX: S32.011A Stable burst fracture of first lumbar vertebra, initial encounter for closed fracture (principal); W11.XXXA Fall on and from ladder, initial encounter; Y92.9 Unspecified place or not applicable; E11.9 Type 2 diabetes mellitus without complications; I25.10 Atherosclerotic heart disease of native coronary artery without angina pectoris; Z95.1 Presence of aortocoronary bypass graft; Z95.2 Presence of prosthetic heart valve; Z86.73 Personal history of transient ischemic attack (TIA), and cerebral infarction without residual deficits; F32.9 Major depressive disorder, single episode, unspecified; Z79.82 Long term (current) use of aspirin; Z79.84 Long term (current) use of oral hypoglycemic drugs; Z79.01 Long term (current) use of anticoagulants; Z79.899 Other long term (current) drug therapy; Z88.8 Allergy status to other drugs, medicaments and biological substances
CPT/HCPCS: 72131; 96374; 96375; 99284; J1170; J2405